=== PATIENT | female | born 1935 | race Caucasian/White ===

== ENCOUNTER 2019-05-06 19:07 | Observation (INO) ==
[2019-05-06 19:58] LABS: Basophils # 0.1 K/mm3 (0-0.2); Basophils % 0.6 % (0.1-2.0); Eosinophils % 0.1 % (0.1-12.0); Hematocrit 45.9 % (37.0-47.0); Hemoglobin 15.4 g/dL (12.2-16.2); Lymphocytes # 3.9 K/mm3 (0.7-4.5); Lymphocytes % 28.6 % (10-50); Mean Corpuscular HGB Conc 33.6 g/dL (31.8-35.4); Mean Platelet Volume 8.6 fl (7.4-10.4); Monocytes # 0.7 K/mm3 (0.1-1.0); Monocytes % 5.4 % (1.7-9.3); Neutrophils # 8.8 K/mm3 (1.8-7.8); Neutrophils % 65.3 % (37.0-80.0); Platelet Count 226 K/mm3 (142-424); Red Blood Count 5.21 M/mm3 (4.20-5.40); Red Cell Distribution Width 14.2 % (11.5-17.5); White Blood Count 13.5 K/mm3 (4.8-10.8)
[2019-05-06 20:12] LABS: Amylase 48 U/L (25-115)
--- NOTE | 2019-05-06 20:13 | Emergency Department Note ---
ED Disposition Clinical Impression: SIRS (systemic inflammatory response syndrome) CAP (community acquired pneumonia) Qualifiers: Laterality: right Lung location: upper lobe of lung Qualified Code(s): J18.9 - Pneumonia, unspecified organism UTI (urinary tract infection) Qualifiers: Urinary tract infection type: site unspecified Hematuria presence: without hematuria Qualified Code(s): N39.0 - Urinary tract infection, site not specified Obesity Qualifiers: Obesity type: due to excess calories Obesity classification: adult class 3 (BMI >= 40) Serious obesity comorbidity presence: with serious comorbidity Body mass index: BMI 40.0-44.9 Qualified Code(s): E66.01 - Morbid (severe) obesity due to excess calories; Z68.41 - Body mass index (BMI) 40.0-44.9, adult Disposition: Admitted as Observation Condition on Discharge: Good - Critical Care Critical Care Time: No Attestation: On 05/06/19, the high probability of a clinically significant, sudden or life threatening deterioration of the following system(s) required my full and direct attention, intervention and personal management. The time I documented below is in addition to time spent performing reported procedures but includes the following listed in this critical care notation. Medical Decision Making - Medical Records Medical records reviewed: Yes: I reviewed the patient's medical records. - Edgardo Inquiry Pt receiving controlled substance: No Vital Signs: 05/06/19 19:29 05/06/19 20:18 05/06/19 20:47 Temperature 99.6 F Temperature Source Oral Pulse Rate 75 Pulse Rate [Right Brachial] 85 81 Respiratory Rate 24 22 Blood Pressure [Right Arm] 170/87 H 169/76 H Blood Pressure Mean [Right Arm] 114 107 Blood Pressure Source [Right Arm] Automatic Cuff Automatic Cuff Blood Pressure Position [Right Arm] Sitting Sitting 02 Sat by Pulse Oximetry 93 L 93 L 93 L Oxygen Delivery Method Room Air Room Air Room Air Oxygen Flow Rate (LPM) 05/06/19 20:50 05/06/19 21:16 05/06/19 22:29 Temperature 102.7 F H Temperature Source Rectal Pulse Rate Pulse Rate [Right Brachial] 63 71 Respiratory Rate 24 22 Blood Pressure [Right Arm] 187/88 H 128/68 Blood Pressure Mean [Right Arm] 121 88 Blood Pressure Source [Right Arm] Automatic Cuff Automatic Cuff Blood Pressure Position [Right Arm] Supine Supine 02 Sat by Pulse Oximetry 93 L 92 L Oxygen Delivery Method Nasal Cannula Nasal Cannula Oxygen Flow Rate (LPM) 3 3 - Lab Data Lab results reviewed: Yes: I reviewed the patient's lab results. Lab Results 05/06/19 19:30: WBC 13.5 H, RBC 5.21, Hgb 15.4, Hct 45.9, MCV 88.0, MCH 29.6, MCHC 33.6, RDW 14.2, Plt Count 226, MPV 8.6, Neut % (Auto) 65.3, Lymph % (Auto) 28.6, [place] % (Auto) 5.4, Eos % (Auto) 0.1, Baso % (Auto) 0.6, Neut # (Auto) 8.8 H, Lymph # (Auto) 3.9, [place] # (Auto) 0.7, Eos # (Auto) 0.0, Baso # (Auto) 0.1 05/06/19 19:30: Influenza Type A Ag Negative, Influenza Type B Ag Negative 05/06/19 19:30: Lactate 1.4 05/06/19 19:30: ESR 16 05/06/19 19:30: C-Reactive Protein 15.3 H 05/06/19 19:30: Amylase 48, Lipase 210 05/06/19 20:15: Sodium 135 L, Potassium 3.6, Chloride 97 L, Carbon Dioxide 25, Anion Gap 16.6 H, BUN 14, Creatinine 0.91, Estimated Creat Clear 19, Estimated GFR 59, Est GFR ( Amer) 71, Glucose 123 H, Calcium 9.3, Total Bilirubin 0.8, AST 14 L, ALT 12, Alkaline Phosphatase 102, Total Protein 7.1, Albumin 3.5, Globulin 3.6 H, Albumin/Globulin Ratio 1.0 L 05/06/19 20:15: Troponin I < 0.02 05/06/19 20:38: Urine Color Yellow, Urine Appearance Clear, Urine pH 5.5, Ur Specific [place] 1.025, Urine Protein 2+, Urine Glucose (UA) Negative, Urine Ketones Trace, Urine Blood 1+, Urine Nitrate Negative, Urine Bilirubin Negative, Urine Urobilinogen 2.0, Ur Leukocyte Esterase 2+ A, Urine WBC 10-20, Ur Squamous Epith Cells 3-5, Urine Bacteria Trace Result diagrams: 05/06/19 19:30 05/06/19 20:15 Orders (Tests/Meds): ED MEDICATIONS Generic Name Dose Route Start Last Admin Trade Name Freq PRN Reason Stop Dose Admin Sodium Chloride 1,000 mls @ 999 mls/hr 05/06/19 19:45 05/06/19 19:57 Sod Chlor 0.9% 1000ml Bag IV 05/06/19 20:45 999 mls/hr .Q1H1M PASQUALE Administration Ceftriaxone Sodium 1 gm/ 50 mls @ 100 mls/hr 05/06/19 21:15 05/06/19 21:14 Sodium Chloride IV 05/20/19 21:14 100 mls/hr Q24H PASQUALE Administration Protocol Azithromycin 500 mg/ Sodium 250 mls @ 250 mls/hr 05/06/19 21:30 05/06/19 21:27 Chloride IV 05/20/19 21:29 250 mls/hr Q24H PASQUALE Administration Protocol Sodium Chloride 1,000 mls @ 50 mls/hr 05/06/19 21:30 05/06/19 21:30 Sod Chlor 0.9% 1000ml Bag IV 06/05/19 21:29 50 mls/hr .Q20H PASQUALE Administration Discontinued Medications Generic Name Dose Route Start Last Admin Trade Name Pattie PRN Reason Stop Dose Admin Acetaminophen 1,000 mg 05/06/19 20:55 05/06/19 20:58 Tylenol 500mg Tablet PO 05/06/19 20:56 1,000 mg ONCE ONE Administration Albuterol Sulfate 1.25 mg 05/06/19 19:52 05/06/19 20:15 Albuterol 0.042% 1.25mg/3ml Neb IH 05/06/19 19:53 1.25 mg ONCE ONE Administration Methylprednisolone Sodium Succinate 125 mg 05/06/19 19:52 05/06/19 19:57 Solu-Medrol 125mg/2ml Vial IV 05/06/19 19:53 125 mg ONCE ONE Administration Ondansetron HCl 4 mg 05/06/19 20:09 05/06/19 20:26 Zofran 4mg/2ml Vial IV 05/06/19 20:10 4 mg ONCE ONE Administration ORDERS Category Date Time Status CT abdomen pelvis w con Stat Cat Scan 05/06/19 20:08 Taken XR chest 2V Stat Exams 05/06/19 19:38 Taken Diarrhea 23 Panel, PCR Stat Lab 05/06/19 20:05 Ordered Troponin I Q3H Lab 05/06/19 23:15 Ordered Troponin I Q3H Lab 05/07/19 02:15 Ordered Blood Culture Stat Micro 05/06/19 19:30 Received Urine Culture Stat Micro 05/06/19 20:38 Received - Radiology Data #1 Image(s): Chest Image Reviewed: Yes I reviewed the patient's radiology image Preliminary Findings: Abnormal (changes rt ) - CT Data CT Scan: Abdomen, Pelvis Time Received: 22:[address] Reviewed: Yes: I have viewed the radiologist's interpretation Preliminary Findings: Abnormal (see report ) - ECG Data Tracing #1 Normal Sinus Rhythm: Yes Ischemic changes: non-specific ST-T wave changes - Physician Consults Physician Consulted: ruby Reason -: Admission Nausea/Vomiting/Diarrhea HPI - General Chief complaint: Nausea/Vomiting/Diarrhea Stated complaint: V&D,Fever,Stomach Pain,Weakness,SOB Time Seen by Provider: 05/06/19 20:00 Mode of Arrival: Ambulatory Source of Information: Patient, Medical Record Limitations: No Limitations Description of Symptoms (Recalled from ER Triage Doc. by RN): Pt c/o cough, body ache, n/v/diarrhea x3 days. She denies any other symptoms at this time. 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 - - pt is poor historian - MD complaint: nausea, vomiting Onset (ago): day(s) Associated Abdominal Pain: No Associated symptoms: cough - Related Data Home Medications Medication Instructions Recorded Confirmed Amlodipine Besylate 1 tab PO DAILY 05/06/19 05/06/19 Aspirin [Adult Low Dose Aspirin EC] 81 mg PO DAILY 05/06/19 05/06/19 Clopidogrel Bisulfate [Plavix 75mg 1 tab PO DAILY 05/06/19 05/06/19 Tab] Donepezil HCl [Aricept 5mg 1 tab PO HS 05/06/19 05/06/19 Tablet] Furosemide [Furosemide 20mg Tab] 1 tab PO DAILY 05/06/19 05/06/19 Gabapentin [Gabapentin 100mg Cap] 1 tab PO TID 05/06/19 05/06/19 Loratadine [Claritin 10mg Tablet] 1 tab PO DAILY 05/06/19 05/06/19 Magnesium Oxide 400 mg PO DAILY 05/06/19 05/06/19 Metoprolol Tartrate [Lopressor 1 tab PO BID 05/06/19 05/06/19 25mg tablet] Montelukast Sodium [Montelukast 10 mg PO HS 05/06/19 05/06/19 10mg Tab] Potassium Chloride 20 meq PO DAILY 05/06/19 05/06/19 Pravastatin Sodium [Pravachol] 40 mg PO HS 05/06/19 05/06/19 Sertraline HCl [Zoloft 50mg tablet] 1 tab PO DAILY 05/06/19 05/06/19 raNITIdine HCl [Ranitidine HCl] 150 mg PO BID 05/06/19 05/06/19 Allergies Allergy/AdvReac Type Severity Reaction Status Date / Time No Known Allergies Allergy Verified 08/31/17 16:57 [facility] History - Hepatitis A Screen Drug use history?: No High risk sexual behaviors?: No History of sexually transmitted infection?: No Currently employed?: No Childcare worker?: No Do you have indoor plumbing?: Yes Do you have electricity?: Yes Attestation statement:: This patient has been screened for Hepatitis A risk factors. I have reviewed the patient's past medical history: Yes Medical History: Denies:: Diabetes Mellitus Type 1, Diabetes Mellitus Type 2 - Social History Alcohol Intake: never Occupational Status: disabled Housing: house ROS Obtained: Yes All systems reviewed & no additional complaints - Constitutional Constitutional: Reports as per HPI, Reports fever(s), Reports weakness - Eyes Eyes: Denies change in vision - ENT Ears, Nose, Mouth, and Throat: Denies sore throat - Cardiovascular Cardiovascular: Denies chest pain - Respiratory Respiratory: Yes as per HPI, Yes cough, Yes non-productive cough, No coughing up blood - Gastrointestinal Gastrointestingal: Reports: as per HPI, nausea, vomiting. Denies: abdominal pain, diarrhea - Genitourinary Female Genitourinary: Denies hematuria - Musculoskeletal Musculoskeletal: Denies joint swelling - Integumentary/Breasts Skin/Breast: Denies rash - Neurologic Neurologic: Denies focal weakness, Denies frequent falls, Denies seizure-like activity Physical Exam - General General appearance: alert, obese - Head Head exam: normocephalic - Eye Eye exam: Present: PERRL, EOMI. Absent: scleral icterus - ENT ENT exam: Present: mucous membranes dry - Neck Neck exam: Present: trachea midline - Respiratory Respiratory exam: Present: other (dec bs bilat ). Absent: respiratory distress - Cardiovascular Cardiovascular exam: Present: regular rate, systolic murmur, +S4 - Abdominal Exam Abdominal exam: Present: soft, tenderness. Absent: guarding, rebound, rigidity Abdominal tenderness: Present: diffuse, mild - Extremities Exam Extremities exam: Present: full ROM - Neurological Exam Neurological exam: Present: alert, CN II-XII intact - Skin Skin exam: Present: intact
[2019-05-06 20:42] LABS: Albumin Level 3.5 gm/dL (3.4-5.0); Anion Gap 16.6 mEq/L (5-15); Bilirubin,Total 0.8 mg/dL (0.2-1.0); Calcium 9.3 mg/dL (8.5-10.1); Globulin 3.6 gm/dl (1.3-3.2); Total Protein,Serum 7.1 gm/dL (6.4-8.2)
[2019-05-06 20:42] LABS: Microscopic, Urine URINE MICROSCOPIC (MICROSCOPIC)
[2019-05-06 20:53] LABS: Appearance,Urine CLEAR (Clear); Blood, Urine 1+ (Negative); Color,Urine YELLOW (Yellow); Glucose,Urine (UA) Negative (Negative); Ketones,Urine TRACE (Negative); Leukocyte Esterase,Urine 2+ (Negative); PH,Urine 5.5 (5.0-8.5); Protein,Urine 2+ (Negative); Specific Gravity, Urine 1.025 (1.005-1.030)
[2019-05-06 21:08] LABS: Bilirubin,Urine Negative (Negative)
[2019-05-06 21:10] LABS: Bacteria,Urine Trace /lpf
[2019-05-07 07:20] LABS: Hematocrit 43.4 % (37.0-47.0); Hemoglobin 13.9 g/dL (12.2-16.2); Mean Corpuscular Volume 89.3 fl (81-99); Mean Platelet Volume 8.5 fl (7.4-10.4); Neutrophils % 70.3 % (37.0-80.0); Platelet Count 177 K/mm3 (142-424); Red Blood Count 4.86 M/mm3 (4.20-5.40); Red Cell Distribution Width 15.1 % (11.5-17.5); White Blood Count 7.8 K/mm3 (4.8-10.8)
[2019-05-07 07:21] LABS: Basophils % 0.5 % (0.1-2.0); Lymphocytes % 25.4 % (10-50); Monocytes # 0.3 K/mm3 (0.1-1.0); Monocytes % 3.7 % (1.7-9.3); Neutrophils # 5.5 K/mm3 (1.8-7.8)
--- NOTE | 2019-05-07 08:59 | History & Physical Report ---
*Admission Date: 05/06/19 *Chief complaint: Fever/lethargy/cough *History of present illness: 83-year-old white female, with significant debility, senile dementia and functional status decline who lives in [place] with relatives after the of her a couple of years ago, who came to the emergency department because she was "sick for a couple of days." She reports nausea, diminished p.o. intake, cough productive of yellow sputum and diminishing urine output. In the emergency department she was found to meet sepsis criteria, have evidence of pneumonia on chest x-ray, and was admitted to hospital for IV fluid, further evaluation, supportive care and intravenous antibiotics. This morning she states she is feeling better than yesterday. [facility] History I have reviewed the patient's past medical history: Yes Medical History: Reports:: Coronary Artery Disease, Dementia, Hyperlipidemia, Hypertension Denies:: Diabetes Mellitus Type 1, Diabetes Mellitus Type 2 *Have you ever received a pneumonia vaccine?: Yes *Have you received a flu vaccine this season?: Yes Other Surgeries: Yes: Other - *Social History Educational Level: Attended Grade School Alcohol Intake: never *Occupational Status:: disabled Housing: house *Travel in the last 8 weeks: None Family Hx:: Cancer, Heart Attack, Stroke Review of Systems - Review of Systems Review of systems:: pertinent systems reviewed and negative unless documented below - Constitutional Reports anorexia, Reports fatigue, Reports fever(s) - ENT Denies abnormal hearing, Denies poor balance, Denies dizziness - *Cardiovascular Denies chest pain, Denies shortness of breath, Denies lightheadedness, Denies shortness of breath causing sudden awakening - *Respiratory Reports change in phlegm color, Reports chest congestion, Reports cough - *Gastrointestinal Reports abdominal pain, Reports change in bowel habits - *Musculoskeletal Reports muscle weakness, Denies abnormal walking - *Neurologic Reports weakness, Denies localized weakness, Denies frequent falls, Denies seizure-like activity - Endocrine Denies cold intolerance, Denies rapid, pounding, or irregular heartbeat, Denies increased urination - Hematologic/Lymphatic Denies easy bleeding - Allergic/Immunologic Denies GI upset with certain foods Meds Home Medications Medication Instructions Recorded Confirmed Type Amlodipine Besylate 1 tab PO DAILY 05/06/19 05/07/19 History Aspirin [Adult Low Dose Aspirin EC] 81 mg PO DAILY 05/06/19 05/07/19 History Clopidogrel Bisulfate [Plavix 75mg 1 tab PO DAILY 05/06/19 05/07/19 History Tab] Donepezil HCl [Aricept 5mg 1 tab PO HS 05/06/19 05/07/19 History Tablet] Furosemide [Furosemide 20mg Tab] 1 tab PO DAILY 05/06/19 05/07/19 History Gabapentin [Gabapentin 100mg Cap] 1 tab PO TID 05/06/19 05/07/19 History Loratadine [Claritin 10mg Tablet] 1 tab PO DAILY 05/06/19 05/07/19 History Magnesium Oxide 400 mg PO DAILY 05/06/19 05/07/19 History Metoprolol Tartrate [Lopressor 1 tab PO BID 05/06/19 05/07/19 History 25mg tablet] Montelukast Sodium [Montelukast 10 mg PO HS 05/06/19 05/07/19 History 10mg Tab] Potassium Chloride 20 meq PO DAILY 05/06/19 05/07/19 History Pravastatin Sodium [Pravachol] 40 mg PO HS 05/06/19 05/07/19 History Sertraline HCl [Zoloft 50mg tablet] 1 tab PO DAILY 05/06/19 05/07/19 History raNITIdine HCl [Ranitidine HCl] 150 mg PO BID 05/06/19 05/07/19 History Allergies Allergy/AdvReac Type Severity Reaction Status Date / Time No Known Allergies Allergy Verified 08/31/17 16:57 Exam Vital signs and Labs for Last 24 Hours: Temp Pulse Resp BP Pulse Ox 98.1 F 55 L 18 127/51 L 96 05/07/19 08:00 05/07/19 08:00 05/07/19 08:00 05/07/19 08:00 05/07/19 08:00 Laboratory Results - last 24 hr 05/06/19 19:30: WBC 13.5 H, RBC 5.21, Hgb 15.4, Hct 45.9, MCV 88.0, MCH 29.6, MCHC 33.6, RDW 14.2, Plt Count 226, MPV 8.6, Neut % (Auto) 65.3, Lymph % (Auto) 28.6, [place]are % (Auto) 5.4, Eos % (Auto) 0.1, Baso % (Auto) 0.6, Neut # (Auto) 8.8 H, Lymph # (Auto) 3.9, Dare # (Auto) 0.7, Eos # (Auto) 0.0, Baso # (Auto) 0.1 05/06/19 19:30: Influenza Type A Ag Negative, Influenza Type B Ag Negative 05/06/19 19:30: Lactate 1.4 05/06/19 19:30: ESR 16 05/06/19 19:30: C-Reactive Protein 15.3 H 05/06/19 19:30: Amylase 48, Lipase 210 05/06/19 20:15: Sodium 135 L, Potassium 3.6, Chloride 97 L, Carbon Dioxide 25, Anion Gap 16.6 H, BUN 14, Creatinine 0.91, Estimated Creat Clear 19, Estimated GFR 59, Est GFR ( Amer) 71, Glucose 123 H, Calcium 9.3, Total Bilirubin 0.8, AST 14 L, ALT 12, Alkaline Phosphatase 102, Total Protein 7.1, Albumin 3.5, Globulin 3.6 H, Albumin/Globulin Ratio 1.0 L 05/06/19 20:15: Troponin I < 0.02 05/06/19 20:38: Urine Color Yellow, Urine Appearance Clear, Urine pH 5.5, Ur Specific [place] 1.025, Urine Protein 2+, Urine Glucose (UA) Negative, Urine Ketones Trace, Urine Blood 1+, Urine Nitrate Negative, Urine Bilirubin Negative, Urine Urobilinogen 2.0, Ur Leukocyte Esterase 2+ A, Urine WBC 10-20, Ur Squamous Epith Cells 3-5, Urine Bacteria Trace 05/07/19 06:05: WBC 7.8 D, RBC 4.86, Hgb 13.9, Hct 43.4, MCV 89.3, MCH 28.6, MCHC 32.0, RDW 15.1, Plt Count 177, MPV 8.5, Neut % (Auto) 70.3, Lymph % (Auto) 25.4, [place]are % (Auto) 3.7, Eos % (Auto) 0.0 L, Baso % (Auto) 0.5, Neut # (Auto) 5.5, Lymph # (Auto) 2.0, Dare # (Auto) 0.3, Eos # (Auto) 0.0, Baso # (Auto) 0.0 I & O for Last 24 hours: Intake & Output 05/04/19 05/05/19 05/06/19 05/07/19 11:59 11:59 11:59 11:59 Intake Total 397 / 397 Output Total 600 / 600 Balance -203 / -203 Weight 178 lb 1 oz Narrative: Patient is pleasant, talkative, oriented x2. Does remember me from seeing me several years ago. Fuzzy about the date today. Oropharynx dry but clear, no JVD. Otherwise ENT exam clear. Neurologic exam nonfocal with symmetric facial exam, able to move all extremities well but global weakness noted. Anterior lung [place] have rhonchi in the lower bases especially in the left side. Heart rate regular. Soft flow murmur. Abdomen soft, minimal lower quadrant tenderness but no rebound or guarding. Age-related skin changes of bruising and brawny changes in the extremities but no significant edema. No skin breakdown. Assessment and Plan (1) CAP (community acquired pneumonia) Current visit: Yes Status: Acute Qualifiers: Laterality: right Lung location: upper lobe of lung Qualified Code(s): J18.9 - Pneumonia, unspecified organism Category: Medical Code(s): J18.9 - Pneumonia, unspecified organism Agree with admission. Follow blood and sputum cultures if possible. (2) Obesity Current visit: Yes Status: Acute Qualifiers: Obesity type: due to excess calories Obesity classification: adult class 3 (BMI >= 40) Serious obesity comorbidity presence: with serious comorbidity Body mass index: BMI 40.0-44.9 Qualified Code(s): E66.01 - Morbid (severe) obesity due to excess calories; Z68.41 - Body mass index (BMI) 40.0-44.9, adult Category: Medical Code(s): E66.9 - Obesity, unspecified Complicates all aspects of her care (3) SIRS (systemic inflammatory response syndrome) Current visit: Yes Status: Acute Category: Medical Code(s): R65.10 - Systemic inflammatory response syndrome (SIRS) of non-infectious origin without acute organ dysfunction Lactic acid normal. White count improving. Volume status improving. (4) UTI (urinary tract infection) Current visit: Yes Status: Acute Qualifiers: Urinary tract infection type: site unspecified Hematuria presence: without hematuria Qualified Code(s): N39.0 - Urinary tract infection, site not specified Category: Medical Code(s): N39.0 - Urinary tract infection, site not specified Antibiotics on board, await culture results (5) Senile dementia Current visit: Yes Status: Acute Category: Medical Code(s): F03.90 - Unspecified dementia without behavioral disturbance Complicates her care. Continue current medications (6) Coronary atherosclerosis of [place] coronary vessel Current visit: Yes Status: Chronic Category: Medical Code(s): I25.10 - Atherosclerotic heart disease of [place] coronary artery without angina pectoris No evidence of recurrent disease. Remains on antiplatelet therapy. Remains on statin. (7) Weakness Current visit: Yes Status: Acute Category: Medical Code(s): R53.1 - Weakness Significant comorbidities, PT/OT evaluation when available to assess for home safety
--- NOTE | 2019-05-07 11:31 | Pharmacy Consult Notes ---
[facility] Pharmacy VTE Monitoring - Patient Demographics Admission date: 05/07/19 Report Date: 05/07/19 Time: 11:31 Allergies/Adverse Reactions: Patient Allergies No Known Allergies Allergy (Verified 08/31/17 16:57) Height: 1.35 m Weight: 80.768 kg Patient Problems: Current Active Problems CAP (community acquired pneumonia) (Acute) UTI (urinary tract infection) (Acute) Obesity (Acute) SIRS (systemic inflammatory response syndrome) (Acute) Senile dementia (Acute) Coronary atherosclerosis of [place] coronary vessel (Chronic) Weakness (Acute) - VTE Risk Labs: VTE Related Lab Results Hgb 13.9 g/dL (12.2-16.2) 05/07/19 06:05 Hct 43.4 % (37.0-47.0) 05/07/19 06:05 Plt Count 177 K/mm3 (142-424) 05/07/19 06:05 BUN 14 mg/dL (7-18) 05/06/19 20:15 Creatinine 0.91 mg/dL (0.55-1.02) 05/06/19 20:15 Estimated Creat Clear 19 mL/min (50-200) 05/06/19 20:15 Was VTE Risk Assessment Performed: Yes VTE Score: 3 VTE Risk Level: Low Risk - Prophylaxis Types of VTE Prophylaxis: TEDS Knee High (FATOU HOSE ORDER PLACED)
[2019-05-07 12:43] LABS: Anion Gap 18.5 mEq/L (5-15); Calcium 9.3 mg/dL (8.5-10.1)
--- NOTE | 2019-05-07 16:21 | Electrocardiograph Report ---
APPROVED REPORT Exam: Resting ECG HR:76 bpm ECG Measurements Heart Rate 76 AXES NE 172 P 64 QRSd 82 QRS 28 QT 398 T28 QTc 447 <Conclusion> Normal sinus rhythm with sinus arrhythmia Normal ECG Electronically signed by : Huey Page, 05/07/2019 16:20:55
[2019-05-08 07:19] LABS: Basophils # 0.1 K/mm3 (0-0.2); Basophils % 0.5 % (0.1-2.0); Eosinophils # 0.1 K/mm3 (0.0-0.4); Eosinophils % 0.6 % (0.1-12.0); Hematocrit 40.8 % (37.0-47.0); Hemoglobin 13.2 g/dL (12.2-16.2); Lymphocytes # 5.5 K/mm3 (0.7-4.5); Mean Corpuscular HGB Conc 32.4 g/dL (31.8-35.4); Mean Corpuscular Volume 90.3 fl (81-99); Mean Platelet Volume 8.7 fl (7.4-10.4); Monocytes # 0.5 K/mm3 (0.1-1.0); Monocytes % 4.4 % (1.7-9.3); Neutrophils # 6.1 K/mm3 (1.8-7.8); Neutrophils % 49.6 % (37.0-80.0); Platelet Count 217 K/mm3 (142-424); Red Blood Count 4.52 M/mm3 (4.20-5.40); Red Cell Distribution Width 14.2 % (11.5-17.5); White Blood Count 12.3 K/mm3 (4.8-10.8)
[2019-05-08 07:40] LABS: Albumin Level 2.9 gm/dL (3.4-5.0); Albumin/Globulin Ratio 0.8 (1.1-1.8); Anion Gap 12.5 mEq/L (5-15); Bilirubin,Total 0.2 mg/dL (0.2-1.0); Calcium 9.3 mg/dL (8.5-10.1); Globulin 3.5 gm/dl (1.3-3.2); Total Protein,Serum 6.4 gm/dL (6.4-8.2)
--- NOTE | 2019-05-08 08:32 | Progress Note ---
Internal Medicine - PN: Subj *Date: 05/08/19 *Time: 08:31 Interval history: Overall patient feels better this morning. Had a very good PT evaluation yesterday. Exam Vital signs and Labs for Last 24 Hours: Temp Pulse Resp BP Pulse Ox 98.2 F 55 L 18 149/65 H 93 L 05/08/19 04:00 05/08/19 06:10 05/08/19 04:00 05/08/19 04:00 05/08/19 06:10 Laboratory Results - last 24 hr 05/07/19 06:05: Sodium 143, Potassium 3.5, Chloride 103, Carbon Dioxide 25, Anion Gap 18.5 H, BUN 16, Creatinine 0.74, Estimated Creat Clear 19, Estimated GFR 75, Est GFR ( Amer) 90 D, Glucose 161 H D, Calcium 9.3, Magnesium 2.1 05/08/19 06:32: WBC 12.3 H D, RBC 4.52, Hgb 13.2, Hct 40.8, MCV 90.3, MCH 29.2, MCHC 32.4, RDW 14.2, Plt Count 217, MPV 8.7, Neut % (Auto) 49.6, Lymph % (Auto) 45.0, [place] % (Auto) 4.4, Eos % (Auto) 0.6, Baso % (Auto) 0.5, Neut # (Auto) 6.1, Lymph # (Auto) 5.5 H, [place] # (Auto) 0.5, Eos # (Auto) 0.1, Baso # (Auto) 0.1 05/08/19 06:32: Sodium 143, Potassium 3.5, Chloride 103, Carbon Dioxide 31 D, Anion Gap 12.5, BUN 24 H D, Creatinine 0.76, Estimated Creat Clear 19, Estimated GFR 72, Est GFR ( Amer) 88, Glucose 97, Calcium 9.3, Total Bilirubin 0.2, AST 19 D, ALT 17 D, Alkaline Phosphatase 85, Total Protein 6.4, Albumin 2.9 L D, Globulin 3.5 H, Albumin/Globulin Ratio 0.8 L I & O for Last 24 hours: Intake & Output 05/05/19 05/06/19 05/07/19 05/08/19 11:59 11:59 11:59 11:59 Intake Total 517 / 517 1190 / 1190 Output Total 600 / 600 200 / 200 Balance -83 / -83 990 / 990 Weight 178 lb 1 oz 179 lb 7 oz Microbiology Reports for the Last 24 Hours: Microbiology 05/07/19 14:30 Sputum - Expectorated Sputum Gram Stain - Final 05/07/19 14:30 Sputum - Expectorated Sputum Sputum Culture - Preliminary 05/06/19 20:38 Urine,Clean Catch Urine Culture - Preliminary Narrative: Patient is eating breakfast vigorously. Alert, oriented x2. Lungs have good air movement, minimal rhonchi in the bases but improving. Heart rate regular. Abdomen soft and nontender. Extremities without edema or clubbing. Stronger, no focal neurologic deficits, no ENT abnormalities Assessment and Plan (1) CAP (community acquired pneumonia) Current visit: Yes Status: Acute Qualifiers: Laterality: right Lung location: upper lobe of lung Qualified Code(s): J18.9 - Pneumonia, unspecified organism Category: Medical Code(s): J18.9 - Pneumonia, unspecified organism (2) Obesity Current visit: Yes Status: Acute Qualifiers: Obesity type: due to excess calories Obesity classification: adult class 3 (BMI >= 40) Serious obesity comorbidity presence: with serious comorbidity Body mass index: BMI 40.0-44.9 Qualified Code(s): E66.01 - Morbid (severe) obesity due to excess calories; Z68.41 - Body mass index (BMI) 40.0-44.9, adult Category: Medical Code(s): E66.9 - Obesity, unspecified (3) SIRS (systemic inflammatory response syndrome) Current visit: Yes Status: Acute Category: Medical Code(s): R65.10 - Systemic inflammatory response syndrome (SIRS) of non-infectious origin without acute organ dysfunction (4) UTI (urinary tract infection) Current visit: Yes Status: Acute Qualifiers: Urinary tract infection type: site unspecified Hematuria presence: without hematuria Qualified Code(s): N39.0 - Urinary tract infection, site not specified Category: Medical Code(s): N39.0 - Urinary tract infection, site not specified (5) Senile dementia Current visit: Yes Status: Acute Category: Medical Code(s): F03.90 - Unspecified dementia without behavioral disturbance (6) Coronary atherosclerosis of [place] coronary vessel Current visit: Yes Status: Chronic Category: Medical Code(s): I25.10 - Atherosclerotic heart disease of [place] coronary artery without angina pectoris (7) Weakness Current visit: Yes Status: Acute Category: Medical Code(s): R53.1 - Weakness - Assessment and plan all Dx Assessment and Plan for all problems:: Overall improving. Await culture results. Probable discharge home tomorrow once culture results are back to assess appropriate antibiotics and we will need home health arranged for strengthening exercises.
--- NOTE | 2019-05-09 09:07 | Discharge Summary ---
General - General Admission date:: 05/06/19 Discharge date: 05/09/19 HPI HPI: 83-year-old white female, with significant debility, senile dementia and functional status decline who lives in [place] with relatives after the of her a couple of years ago, who came to the emergency department because she was "sick for a couple of days." She reports nausea, diminished p.o. intake, cough productive of yellow sputum and diminishing urine output. In the emergency department she was found to meet sepsis criteria, have evidence of pneumonia on chest x-ray, and was admitted to hospital for IV fluid, further evaluation, supportive care and intravenous antibiotics. This morning she states she is feeling better than yesterday. Hospital Course Hospital Course: Patient was admitted, placed on standard community-acquired pneumonia protocol with ceftriaxone and azithromycin. She did very well over the next 24 hours, had no fever, felt much better and began to eat vigorously. Blood cultures have been nondiagnostic. Sputum cultures have shown gram- positive cocci but final identification is not available at the time of this dictation. This morning patient has reached maximal medical provement in the hospital. Eating well, doing her own activities of daily living in the room and she will be discharged home with oral antibiotic therapy. Will arrange short-term follow-up in our office for a hospital recheck. Note patient achieved acceptable room air saturations of 93 to 94% on room air this morning. Patient lives with daughter and son-in-law. She does not have home health services once weekly for nursing checks. Given her increasing frailty and weakness I have asked home health to also check for her eligibility for PT/OT/home safety evaluation and ongoing monitoring for oxygen status. Patient does not leave the house with out a significant amount of difficulty secondary to pain and immobility issues. Please note I examined the patient [id number] today. Objective Vital signs: Temp Pulse Resp BP Pulse Ox 98.3 F 68 20 154/90 H 94 L 05/09/19 08:00 05/09/19 08:00 05/09/19 08:00 05/09/19 08:00 05/09/19 08:37 Narrative: Patient is pleasant, talkative, eating breakfast well. Oropharynx clear and moist. Heart rate regular. No JVD. Lungs have good air movement, minimal base rhonchi but otherwise much clearer. No edema or clubbing. Abdomen soft and nontender. Neurologic exam nonfocal except for global weakness. Results Labs on day of discharge: Preliminary micro results at discharge 05/06/19 19:30 Blood Culture - Preliminary Blood NO GROWTH AFTER 48 HOURS 05/06/19 19:30 Blood Culture - Preliminary Blood NO GROWTH AFTER 48 HOURS 05/07/19 14:30 Sputum Culture - Preliminary Sputum - Expectorated Sputum 05/06/19 20:38 Urine Culture - Preliminary Urine,Clean Catch DS: Diagnosis - Discharge Diagnosis (1) CAP (community acquired pneumonia) Status: Acute (2) Obesity Status: Acute (3) SIRS (systemic inflammatory response syndrome) Status: Acute (4) UTI (urinary tract infection) Status: Acute (5) Senile dementia Status: Acute (6) Coronary atherosclerosis of [place] coronary vessel Status: Chronic (7) Weakness Status: Acute Discharge Plan - Patient Discharge Instructions ACTIVITY: Continue current activity DIET: continue same diet Patient Instructions: Pneumonia-Adult, DI for Pneumonia -- Adult - Follow up Plan Follow up with: Reshma Roldan APRN [Nurse Practitioner] - 05/12/19 Disposition: Home, Self-Detention Medications: Home Medications Medication Instructions Recorded Confirmed Type Amlodipine Besylate 10 mg PO DAILY 05/06/19 05/07/19 History Aspirin [Adult Low Dose Aspirin EC] 81 mg PO DAILY 05/06/19 05/07/19 History Clopidogrel Bisulfate [Plavix 75mg 75 mg PO DAILY 05/06/19 05/07/19 History Tab] Donepezil HCl [Aricept 5mg 5 tab PO HS 05/06/19 05/07/19 History Tablet] Furosemide [Furosemide 20mg Tab] 20 tab PO DAILY 05/06/19 05/07/19 History Gabapentin [Gabapentin 100mg Cap] 100 tab PO TID 05/06/19 05/07/19 History Loratadine [Claritin 10mg Tablet] 10 tab PO DAILY 05/06/19 05/07/19 History Magnesium Oxide 400 mg PO DAILY 05/06/19 05/07/19 History Metoprolol Tartrate [Lopressor 25 tab PO BID 05/06/19 05/07/19 History 25mg tablet] Montelukast Sodium [Montelukast 10 mg PO HS 05/06/19 05/07/19 History 10mg Tab] Potassium Chloride 20 meq PO DAILY 05/06/19 05/07/19 History Pravastatin Sodium [Pravachol] 40 mg PO HS 05/06/19 05/07/19 History Sertraline HCl [Zoloft 50mg tablet] 50 tab PO DAILY 05/06/19 05/07/19 History raNITIdine HCl [Ranitidine HCl] 150 mg PO BID 05/06/19 05/07/19 History Azithromycin [Zithromax 250mg 250 mg PO DIRECTED #6 tab 05/09/19 Rx tab] Cefdinir [Omnicef 300mg Capsule] 300 mg PO BID #14 cap 05/09/19 Rx Promethazine/Dextromethorphan 5 ml PO Q6HP PRN #240 ml 05/09/19 Rx [Promethazine-Dm Syrup] Prescriptions/Medication Reconciliation: New Cefdinir [Omnicef 300mg Capsule] 300 mg PO BID #14 cap Promethazine/Dextromethorphan [Promethazine-Dm Syrup] 5 ml PO Q6HP PRN #240 ml PRN Reason: Cough Azithromycin [Zithromax 250mg tab] 250 mg PO DIRECTED #6 tab Continued Clopidogrel Bisulfate [Plavix 75mg Tab] 75 mg PO DAILY raNITIdine HCl [Ranitidine HCl] 150 mg PO BID Montelukast Sodium [Montelukast 10mg Tab] 10 mg PO HS Aspirin [Adult Low Dose Aspirin EC] 81 mg PO DAILY Pravastatin Sodium [Pravachol] 40 mg PO HS Potassium Chloride 20 meq PO DAILY Furosemide [Furosemide 20mg Tab] 20 tab PO DAILY Metoprolol Tartrate [Lopressor 25mg tablet] 25 tab PO BID Loratadine [Claritin 10mg Tablet] 10 tab PO DAILY Gabapentin [Gabapentin 100mg Cap] 100 tab PO TID Magnesium Oxide 400 mg PO DAILY Donepezil HCl [Aricept 5mg Tablet] 5 tab PO HS Sertraline HCl [Zoloft 50mg tablet] 50 tab PO DAILY Amlodipine Besylate 10 mg PO DAILY - Problem Reconciliation Problems Reviewed?: Yes
== END 2019-05-09 13:08 | disposition home health service (06) ==
LOC: 2ND 19:07 → ER 19:07 → 2ND 23:42
PROVIDERS: ADMIT Internal Medicine Adolescent Medicine; ATTEND Internal Medicine Adolescent Medicine
CPT/HCPCS: 36415; 71020; 71046; 74177; 80048; 80053; 81001; 82150; 83605; 83690; 83735; 84484; 85025; 85651; 86140; 87040; 87070; 87086; 87205; 87275; 87276; 93005; 96365; 96366; 96375; 97161; 97166; 99285; G0378; J0456; J2405; Q9967

== ENCOUNTER 2023-07-16 08:46 | Inpatient (IN) | payer MEDICARE, OTHER, SELFPAY ==
[2023-07-16] VITALS (28 sets, daily range): BP systolic 133–172; BP diastolic 59–112; PULSE 45–76; RESP 15–26; TEMP 36.3–37.1; O2SAT 77–96; BMI 28.3; BMI 29.2
--- NOTE | 2023-07-16 08:47 | XR_ITS ---
FINAL REPORT CLINICAL HISTORY: SOA, hypoxia COMPARISON: 02/05/2023 FINDINGS: A single portable view of the chest was obtained. The heart size and pulmonary vascularity are within normal limits. The mediastinum is within normal limits. There are dense right upper lobe and bilateral lower lobe airspace infiltrates, worse than noted on the prior exam of January. The bony thorax is intact. IMPRESSION: Dense right upper lobe and bilateral lower lobe airspace infiltrates, worse than noted on the prior exam of January 2023. Reviewed, Interpreted and Dictated by Holland Patel MD Transcribed by Aleyda Kaur Authenticated and [facility]
--- NOTE | 2023-07-16 08:49 | ECG_ITS ---
APPROVED REPORT Exam: Resting ECG HR:66 bpm ECG Measurements Heart Rate 66 AXES WA 197 P 64 QRSd 96 QRS 89 QT 422 T 107 QTc 435 Conclusion SINUS RHYTHM WITH OCCASIONAL SUPRAVENTRICULAR PREMATURE COMPLEXES BORDERLINE ECG UNCONFIRMED REPORT Electronically signed by : Moiz Brito MD 07/16/2023 16:33:32
--- NOTE | 2023-07-16 08:50 | ED_ITS ---
Discharge Plan Disposition Patient Disposition: Admitted Condition: Fair Clinical Impressions Clinical Impression: Sepsis due to pneumonia, Acute on chronic hypoxic respiratory failure Discharge ED Provider: Linnette Kaur General Adult HPI General Chief complaint: Shortness of Breath/Dyspnea Stated complaint: soa Time Seen by Provider: 07/16/23 08:47 History of Present Illness HPI narrative: This patient is an 87-year-old female with history of chronic respiratory failure on 4 L nasal cannula, COPD, CHF, CAD, history of pneumonia, and history of dementia presenting to the emergency department for evaluation with concern for shortness of breath that started last night and became worse this morning. She also notes cough, subjective fevers, and nausea. She arrives by EMS who noted patient was satting in the 60s on her home 4 L nasal cannula once they arrived on scene, however the tubing was extremely long. She improved to the 80s on short tubing at her baseline 4 L nasal cannula, and she was noted to be wheezing. They gave her a nebulizer treatment, which improved her respiratory status slightly. Patient states she is feeling a little bit better. EMS notes that the patient chronically has lower extremity edema, left greater than right. No other concerns noted at this time. Related Data Home Medications Medication Instructions Recorded Confirmed amlodipine 10 mg tablet 10 mg PO DAILY High Blood Pressure 02/05/23 07/16/23 azithromycin 250 mg tablet 250 mg PO MOWEFR Bronchopneumonia 02/05/23 07/16/23 carvedilol 6.25 mg tablet 6.25 mg PO BID High Blood Pressure 02/05/23 07/16/23 clopidogrel 75 mg tablet 75 mg PO DAILY Antiplatelet 02/05/23 07/16/23 donepezil 5 mg tablet 5 mg PO HS Memory 02/05/23 07/16/23 ergocalciferol (vitamin D2) 1,250 1,250 mcg PO WEEKLY Supplement 02/05/23 07/16/23 mcg (50,000 unit) capsule (Vitamin D2) gabapentin 100 mg capsule 100 mg PO HS Restless Leg(S) 02/05/23 07/16/23 isosorbide mononitrate 30 mg 30 mg PO DAILY High Blood Pressure 02/05/23 07/16/23 tablet,extended release 24 hr loratadine 10 mg tablet 10 mg PO DAILY Allergy Symptoms 02/05/23 07/16/23 montelukast 10 mg tablet 10 mg PO PM Allergy Symptoms 02/05/23 07/16/23 pravastatin 40 mg tablet 40 mg PO HS High Cholesterol 02/05/23 07/16/23 sertraline 50 mg tablet 50 mg PO DAILY Mood 02/05/23 07/16/23 albuterol sulfate 90 mcg/actuation 2 inh inhalation Q4HP PRN 02/12/23 07/16/23 aerosol inhaler Shortness Of Breath ipratropium 0.5 mg-albuterol 3 mg 3 ml inhalation Q4HP PRN Breathing 02/12/23 07/16/23 (2.5 mg base)/3 mL nebulization Problems soln potassium chloride 20 mEq 20 meq PO DAILY 07/16/23 07/16/23 tablet,extended release(part/cryst) Previous Rx's Medication Instructions Recorded furosemide 20 mg tablet 40 mg PO DAILY Fluid 30 days #60 02/14/23 tabs Allergies Allergy/AdvReac Type Severity Reaction Status Date / Time No Known Allergies Allergy Verified 04/30/23 08:18 [facility] Disclaimer: The information contained in this section may have been updated after the patient was seen, as this information can be updated by other users. Medical History Chronic venous stasis Congestive heart failure COPD (chronic obstructive pulmonary disease) Coronary artery disease Diverticulosis Hearing deficit History of skin cancer HTN (hypertension) Onychodystrophy Onychomycosis Senile dementia Splenomegaly Varicose veins of both lower extremities Surgical History History of breast lump/mass excision History of hemorrhoidectomy Family History Father Mother Heart attack Mother Lung cancer Father Stroke Social History (Updated 07/16/23 @ 14:01 by Ivory Gimenez RN) Smoking Status: Former smoker alcohol intake: never current occupational status: retired and disabled Travel in the last 8 weeks: None household members: family housing: house ROS Obtained: Yes All systems reviewed & no additional complaints except as documented Physical Exam General General appearance: alert and in no apparent distress Head Head exam: atraumatic and normocephalic Eye Eye exam: Present normal appearance, PERRL and EOMI ENT ENT exam: Present normal exam, normal oropharynx, mucous membranes moist and normal external ear exam Neck Neck exam: Present normal inspection, full ROM and trachea midline; Absent tenderness Chest Chest inspection: Present normal inspection and symmetric chest wall rise; Absent tenderness Respiratory Respiratory exam: Present wheezes, prolonged expiratory phase and other (No notable respiratory distress, but the patient does have diminished breath sounds bilaterally as well as wheezing noted.); Absent respiratory distress, stridor or accessory muscle use Cardiovascular Cardiovascular exam: Present regular rate and normal rhythm Abdominal Exam Abdominal exam: Present soft; Absent distention, tenderness or guarding Extremities Exam Extremities exam: Present full ROM, tenderness, normal capillary refill, edema and other (Left greater than right lower extremity edema with mild erythema of the left lower leg) Back Exam Back exam: Present normal inspection and full ROM; Absent tenderness Neurological Exam Neurological exam: Present alert, oriented X3, CN II-XII intact and normal gait; Absent motor sensory deficit Psychiatric Psychiatric exam: Present normal affect and normal mood Skin Skin exam: Present warm and dry Medical Decision Making Medical Records Medical records reviewed: Yes I reviewed the patient's medical records. Edgardo Inquiry Pt receiving controlled substance: No Vital Signs: 07/16/23 08:47 07/16/23 08:53 07/16/23 09:08 Temperature 98.8 F Temperature Source Tympanic Pulse Rate Pulse Rate [Right] 68 Respiratory Rate 22 Blood Pressure Blood Pressure [Right Arm] 162/67 H Blood Pressure Mean [Right Arm] 98 Blood Pressure Source Blood Pressure Position 02 Sat by Pulse Oximetry 77 L 90 L 94 L Oxygen Delivery Method Nasal Cannula Non-Rebreather Aerosol Mask Oxygen Flow Rate (LPM) 4 15 15 07/16/23 09:01 07/16/23 09:30 07/16/23 10:01 Temperature Temperature Source Pulse Rate 63 57 L 45 L Pulse Rate [Right] Respiratory Rate Blood Pressure 155/78 H 161/82 H Blood Pressure [Right Arm] Blood Pressure Mean [Right Arm] Blood Pressure Source Blood Pressure Position 02 Sat by Pulse Oximetry 93 L 91 L 81 L Oxygen Delivery Method Oxygen Flow Rate (LPM) 07/16/23 10:20 07/16/23 10:31 07/16/23 11:01 Temperature Temperature Source Pulse Rate 67 68 Pulse Rate [Right] Respiratory Rate Blood Pressure 153/69 H 141/112 H Blood Pressure [Right Arm] Blood Pressure Mean [Right Arm] Blood Pressure Source Blood Pressure Position 02 Sat by Pulse Oximetry 92 L 92 L 90 L Oxygen Delivery Method Vapotherm Vapotherm Vapotherm Oxygen Flow Rate (LPM) 30 07/16/23 11:30 07/16/23 12:00 07/16/23 12:51 Temperature 98.8 F Temperature Source Temporal Artery Scan Pulse Rate 64 66 64 Pulse Rate [Right] Respiratory Rate 18 Blood Pressure 165/76 H 170/75 H 165/79 H Blood Pressure [Right Arm] Blood Pressure Mean [Right Arm] Blood Pressure Source Automatic Cuff Blood Pressure Position Supine 02 Sat by Pulse Oximetry 91 L 90 L Oxygen Delivery Method Vapotherm Vapotherm Vapotherm Oxygen Flow Rate (LPM) Lab Data Lab results reviewed: Yes I reviewed the patient's lab results. Lab Results 07/16/23 08:47: VBG pH 7.38, VBG pCO2 56.7 H, VBG pO2 33.4, VBG HCO3 32.9 H, VBG Total CO2 34.7 H, VBG O2 Saturation 63.1, VBG Base Excess 7.8 H 07/16/23 08:50: WBC 29.6 H*, RBC 4.33, Hgb 10.8 L, Hct 36.8 L, MCV 85.0, MCH 25.0 L, MCHC 29.5 L, RDW 16.2, Plt Count 187, MPV 7.7, Neut % (Auto) 18.1 L, Lymph % (Auto) 78.0 H, [place] % (Auto) 2.3, Eos % (Auto) 0.4, Baso % (Auto) 1.1, Neut # (Auto) 5.4, Lymph # (Auto) 23.1 H, [place] # (Auto) 0.7, Eos # (Auto) 0.1, Baso # (Auto) 0.3 H, Total Counted 100, Neutrophils % (Manual) 16 L, Band Neutrophils % 1.0, Lymphocytes % (Manual) 81 H, Monocytes % (Manual) 2, Platelet Estimate Normal, Poikilocytosis 1+, Anisocytosis 1+, Microcytosis 1+, Macrocytosis Client Account Representative, PT 11.4, INR 1.06, APTT 24.3, D-Dimer 1.10 H, Sodium 141, Potassium 3.2 L, Chloride 100, Carbon Dioxide 39 H, Anion Gap 5.2, BUN 16, Creatinine 0.60, Estimated Creat Clear 45, Estimated GFR 94, Est GFR ( Amer) 114, Glucose 108 H, Calcium 9.2, Total Bilirubin 0.6, AST 27, ALT 17, Alkaline Phosphatase 89, Troponin I < 0.01, NT-Pro-B Natriuret Pep 4680 H, Total Protein 6.0 L, Albumin 3.7, Globulin 2.3, Albumin/Globulin Ratio 1.6, Procalcitonin < 0.030, TSH 0.96, Thyroxine (T4) 8.2 07/16/23 08:53: SARS-CoV-2 (PCR) Not detected, Influenza A Untype (PCR) Not detected, Influenza Type B (PCR) Not detected 07/16/23 09:30: Lactate 0.6 L 07/16/23 12:18: Troponin I < 0.01 07/16/23 08:50 07/16/23 08:50 Orders (Tests/Meds): ED MEDICATIONS Generic Name Dose Route Start Last Admin Trade Name Mylesq PRN Reason Stop Dose Admin Albuterol/Ipratropium 3 ml 07/16/23 14:00 07/16/23 14:43 Ipratropium/Albuterol 3 Ml Neb IH 08/15/23 13:59 3 ml Q4RT [place] Administration Carvedilol 6.25 mg 07/16/23 12:45 07/16/23 14:22 Carvedilol 6.25mg Tablet PO 08/15/23 12:44 6.25 mg BID [place] Administration Donepezil HCl 5 mg 07/16/23 21:00 Donepezil 5mg Tab PO 08/15/23 20:59 HS [place] Furosemide 40 mg 07/17/23 08:00 Furosemide 40mg/4ml Vial IV 08/16/23 07:59 BIDL [place] Gabapentin 100 mg 07/16/23 21:00 Gabapentin 100mg Capsule PO 08/15/23 20:59 HS [place] Heparin Sodium (Porcine) 5,000 unit 07/16/23 21:00 Heparin Sodium 5,000 Unit/Ml Vial SQ 08/15/23 20:59 TID [place] Vancomycin HCl 1,000 mg/ 250 mls @ 125 mls/hr 07/16/23 09:45 07/16/23 10:54 Sodium Chloride IV 07/26/23 09:44 125 mls/hr 0800 [place] Administration Piperacillin Sod/Tazobactam 50 mls @ 100 mls/hr 07/16/23 17:00 Sod 3.375 gm/ Sodium Chloride IV 07/26/23 16:59 Q6H [place] Isosorbide Mononitrate 30 mg 07/16/23 12:45 07/16/23 14:22 Isosorbide [place] 30mg Tab.Er.24h PO 08/15/23 12:44 30 mg DAILY [place] Administration Montelukast Sodium 10 mg 07/16/23 18:00 Montelukast Sodium 10mg Tab PO 08/15/23 17:59 PM [place] Potassium Chloride 20 meq 07/16/23 13:00 07/16/23 14:22 Potassium Chloride 20meq Tab PO 08/15/23 12:59 20 meq TID [place] Administration Fluticasone/Salmeterol 1 puff 07/17/23 06:00 Fluticasone/Salmeterol 250/50mcg Diskus 08/16/23 05:59 BIDRT [facility] Sodium Chloride 3 ml 07/16/23 09:25 Sodium Chloride 3% 15ml [facility] 08/15/23 09:24 ONCE PRN INDUCE SPUTUM COLLECTION Discontinued Medications Generic Name Dose Route Start Last Admin Trade Name Freq PRN Reason Stop Dose Admin Albuterol/Ipratropium 9 ml 07/16/23 08:49 07/16/23 09:01 Ipratropium/Albuterol 3 Ml [facility] 07/16/23 08:50 9 ml ONCE ONE Administration Furosemide 40 mg 07/17/23 09:00 Furosemide 20mg Tablet PO 08/16/23 08:59 DAILY [place] Furosemide 80 mg 07/16/23 12:40 07/16/23 14:21 Furosemide 40mg/4ml Vial IV 07/16/23 12:41 80 mg ONCE ONE Administration Piperacillin Sod/Tazobactam 50 mls @ 100 mls/hr 07/16/23 09:27 07/16/23 10:16 Sod 3.375 gm/ Sodium Chloride IV 07/16/23 09:56 100 mls/hr ONCE ONE Administration Sodium Chloride 500 mls @ 999 mls/hr 07/16/23 09:27 07/16/23 10:17 Sod Chlor 0.9% 1000ml Bag IV 07/16/23 09:57 999 mls/hr .Q31M ONE Administration Iopamidol 70 ml 07/16/23 09:50 07/16/23 09:52 Iopamidol-370 (76%);100ml Bottle IV 07/16/23 09:51 70 ml ONCE ONE Administration Methylprednisolone Sodium Succinate 125 mg 07/16/23 08:49 07/16/23 09:02 Methylprednisolone Sod Succ 125mg Vial IV 07/16/23 08:50 125 mg ONCE ONE Administration Miscellaneous 1 each 07/16/23 09:30 07/16/23 10:29 Vancomycin Consult Request NOTAPPLIC 08/15/23 09:29 1 each CONSULT PHARMACY [place] Administration Sodium Chloride 40 ml 07/16/23 09:50 07/16/23 09:52 0.9 % Sodium Chloride 50 Ml Vial IV 07/16/23 09:51 40 ml ONCE ONE Administration Sodium Chloride 10 ml 07/16/23 09:50 07/16/23 09:52 Sodium Chloride 0.9% 10ml Syr (Rad Only) IV 07/16/23 09:51 10 ml ONCE ONE Administration ORDERS Category Date Time Status CT angio chest PE protocol Stat Cat Scan 07/16/23 09:30 Completed XR chest portable Stat Exams 07/16/23 08:47 Completed Activated Partial Thrombo Time Stat Lab 07/16/23 08:50 Completed Brain Natriuretic Peptide Stat Lab 07/16/23 08:50 Completed Complete Blood Count Auto Diff AMLAB Lab 07/17/23 06:00 Ordered Complete Blood Count Auto Diff Stat Lab 07/16/23 08:50 Completed Comprehensive Metabolic Panel AMLAB Lab 07/17/23 06:00 Ordered Comprehensive Metabolic Panel Stat Lab 07/16/23 08:50 Completed D-Dimer Stat Lab 07/16/23 08:50 Completed Lactic Acid Stat Lab 07/16/23 09:30 Completed Magnesium AMLAB Lab 07/17/23 06:00 Ordered Procalcitonin Stat Lab 07/16/23 08:50 Completed Prothrombin Time INR Stat Lab 07/16/23 08:50 Completed Rapid PCR Covid and Flu A/B Stat Lab 07/16/23 08:53 Completed T4 (Thyroxine) Stat Lab 07/16/23 08:50 Completed Thyroid Stimulating Hormone Stat Lab 07/16/23 08:50 Completed Troponin I Q3H Lab 07/16/23 12:18 Completed Troponin I Q3H Lab 07/16/23 15:10 Received Troponin I Stat Lab 07/16/23 08:50 Completed Blood Culture Stat Micro 07/16/23 10:09 Received Sputum Culture & Gram Stain Stat Micro 07/16/23 09:25 Ordered Venous Blood Gas Stat RT 07/16/23 08:47 Completed CA venous doppler LE LT Stat Y 07/16/23 09:30 Completed ECG initial [place] Routine Y 07/16/23 08:49 Completed ECG Data Tracing #1: I reviewed this ECG and interpreted as documented below: Normal sinus rhythm with a ventricular rate of 66 bpm. Significant motion artifact noted. No obvious acute ST elevations concerning for ischemia. ECG initial impression date: 07/16/23 ECG initial impression time: 08:51 Medical Decision Narrative: In summary, this patient is a 87-year-old female presenting to the Emergency Department for evaluation of shortness of breath. Differential diagnoses considered include but are not limited to COPD exacerbation, CHF exacerbation, viral syndrome, pneumonia, PE, acute on chronic respiratory failure. Ruling out the most morbid conditions drove assessment. It should be noted patient's history includes chronic respiratory failure, COPD, and CHF which are not at goal therapy. This complicates all aspects of care by increasing patient's risk for morbidity. I reviewed patient's past medical records and noted previous admission for similar issues in the past. On exam, the patient is in no acute distress. She does have low oxygen saturations on her home 4 L nasal cannula. She has wheezing and diminished breath sounds bilaterally. She does have bilateral lower extremity edema, left greater than right. According to EMS, this is chronic, but I do not find obvious documentation of this in her medical records. Workup included CBC, CMP, troponin, TSH, T4, BNP, VBG, D-dimer, chest x-ray, EKG, and viral swab. Patient was given 3 [id number] DuoNeb's as well as IV methylprednisolone given her wheezing. EKG has significant motion artifact but does not demonstrate any acute ST elevations. Labs were obtained that demonstrated significant leukocytosis with neutrophilic predominance. I reviewed prior labs which also had demonstrated leukocytosis in the past, however this is slightly higher than her usual. She has chronic compensated respiratory acidosis based on VBG. I independently interpreted x- ray prior to the radiologist read and noted concerns for right-sided pneumonia. Please see their read for final interpretation. Given that the patient has pneumonia, leukocytosis, and acute respiratory failure with tachypnea, concerns for sepsis. She was not given a full sepsis bolus, as she has a history of heart failure and I feel that this would compromise her respiratory status. She was given a 500 cc bolus of IV fluids. I reviewed past medical records which demonstrated that she has had Staph hominis sepsis in the past, susceptible to vancomycin. Given this, she was given IV vancomycin and Zosyn. Blood cultures were sent. She was found to have an elevated D-dimer in the setting of LLE swelling and respiratory failure, so LLE DVT US and CT PE were ordered. On reassessment, patient had good improvement after administration of nebs and methylprednisolone. I independently interpreted CT scans prior to radiology read and noted consolidation as well as bilateral pleural effusions without DVT, PE, or other acute concerns. At this time, patient was deemed to be appropriate for admission for continued evaluation and management of her acute on chronic respiratory failure and sepsis secondary to pneumonia. I had an interactive discussion with Dr. Manrique who advised he would admit the patient. She was admitted in stable condition. Critical Care Critical Care Time Critical Care Time: Yes Attestation: On 07/16/23, the high probability of a clinically significant, sudden or life threatening deterioration of the following system(s) (respiratory failure requiring positive pressure ventilation) required my full and direct attention, intervention and personal management. The time I documented below is in addition to time spent performing reported procedures but includes the following listed in this critical care notation. Total Time Total Critical Care Time: 30
[2023-07-16 08:56] LABS: Coronavirus 19, PCR Not Detected (NotDetected); Influenza A, PCR Not Detected (NotDetected); Influenza B, PCR Not Detected (NotDetected)
--- NOTE | 2023-07-16 08:57 | PC.NURSE ---
xray at bs with portable
[2023-07-16 09:00] LABS: VBG Base Excess 7.8 mmol/L (-2.4-2.3); VBG HCO3 32.9 mmol/L (23-30); VBG Oxygen Saturation 63.1 % (50-70); VBG PH 7.38 mmol/L (7.31-7.41); VBG PO2 33.4 mmol/L (28-40); VBG Total CO2 34.7 mmol/L (23-27)
[2023-07-16] MEDS: IPRATROPIUM/ALBUTEROL 3 ML NEB 9 ML IH (09:01)
[2023-07-16 09:02] LABS: Basophils # 0.3 K/mm3 (0-0.2); Basophils % 1.1 % (0.1-2.0); Eosinophils # 0.1 K/mm3 (0.0-0.4); Eosinophils % 0.4 % (0.1-12.0); Hematocrit 36.8 % (37.0-47.0); Hemoglobin 10.8 g/dL (12.2-16.2); Lymphocytes # 23.1 K/mm3 (0.7-4.5); Mean Corpuscular HGB Conc 29.5 g/dL (31.8-35.4); Mean Platelet Volume 7.7 fl (7.4-10.4); Monocytes # 0.7 K/mm3 (0.1-1.0); Monocytes % 2.3 % (1.7-9.3); Neutrophils # 5.4 K/mm3 (1.8-7.8); Neutrophils % 18.1 % (37.0-80.0); Platelet Count 187 K/mm3 (142-424); Red Blood Count 4.33 M/mm3 (4.20-5.40); Red Cell Distribution Width 16.2 % (11.5-17.5); White Blood Count 29.6 K/mm3 (4.8-10.8)
[2023-07-16] MEDS: METHYLPREDNISOLONE SOD SUCC 125MG VIAL 125 MG IV (09:02)
[2023-07-16 09:03] LABS: VBG PCO2 56.7 mmol/L (35-51)
[2023-07-16 09:06] LABS: Alanine Aminotransferase 17 U/L (12-78); Albumin Level 3.7 g/dl (3.5-5.0); Albumin/Globulin Ratio 1.6 (1.1-1.8); Alkaline Phosphatase 89 U/L (38-126); Anion Gap 5.2 mEq/L (5-15); Aspartate Amino Transferase 27 U/L (14-36); Bilirubin,Total 0.6 mg/dl (0.2-1.3); Blood Urea Nitrogen 16 mg/dl (7-17); Calcium 9.2 mg/dl (8.4-10.2); Carbon Dioxide 39 mmol/L (22.0-30.0); Chloride 100 mmol/L (98-107); Creatinine Clearance Estimated 45 mL/min (50-200); Estimated Glomerular Filt Rate 94 ml/min (>60); GFR (African American) 114 ML/MIN (>60); Globulin 2.3 g/dL (1.3-3.2); Glucose 108 mg/dl (74-100); Potassium 3.2 mmoL/L (3.5-5.1); Sodium 141 mmol/L (136-145)
[2023-07-16 09:08] LABS: MANUAL DIFFERENTIAL MANUAL DIFFERENTIAL (MANUAL DIFF)
[2023-07-16 09:09] LABS: Activated Partial Thrombo Time 24.3 seconds (22.8-30.6); INR 1.06 (0.9-1.1); Prothrombin Time 11.4 seconds (10.1-12.5)
--- NOTE | 2023-07-16 09:10 | PC.NURSE ---
aware of co2 of 56.7 results
[2023-07-16 09:19] LABS: NT Pro Brain Natriuretic Pep. 4680 pg/mL (0-450)
[2023-07-16 09:24] LABS: T4 (Thyroxine) 8.2 ug/dl (5.53-11.0)
[2023-07-16 09:25] LABS: Procalcitonin < 0.030 ng/mL (0.0-2.0); Troponin I < 0.01 ng/ml (0.00-0.034)
--- NOTE | 2023-07-16 09:30 | CT_ITS ---
FINAL REPORT TECHNIQUE: The patient was injected with IV contrast. Axial images were obtained through the chest in a PE protocol. 3-D reconstruction images were also performed. Individualized dose reduction techniques using automated exposure control or adjustment of the MA and/or KV according to patient's size were employed. CLINICAL HISTORY: acute respiratory failure, Elevated D-dimer FINDINGS: Mediastinal vasculature is adequately opacified. No pulmonary artery filling defects are identified to suggest PE. There is no aortic dissection. There is moderate mediastinal adenopathy. Paratracheal lymph nodes measure up to 2.0 cm in greatest dimension. Subcarinal lymph nodes are enlarged measuring up to 2.6 cm in greatest dimension. There is bilateral axillary adenopathy, right greater than left. Individual lymph nodes measure up to 2.5 cm. There are moderate bilateral pleural effusions. Dense bibasilar consolidation is noted. Limited images of the upper abdomen are unremarkable. IMPRESSION: No pulmonary embolus or dissection. Moderate mediastinal and right axillary adenopathy of uncertain etiology. This may be reactive but neoplastic causes are not excluded. Dense bibasilar consolidation and bilateral pleural effusions. Reviewed, Interpreted and Dictated by Holland Patel MD Transcribed by Micheline Burger Authenticated and [facility]
--- NOTE | 2023-07-16 09:30 | CA_ITS ---
FINAL REPORT TECHNIQUE: Ultrasound images of the deep venous system were obtained from the left groin to the calf veins. CLINICAL HISTORY: limb swelling/erythema, elevated dimer,soa FINDINGS: The deep venous system is normally compressible. Normal flow is identified. IMPRESSION: No evidence of left lower extremity DVT. Reviewed, Interpreted and Dictated by Holland Patel MD Transcribed by Micheline Burger Authenticated and [facility]
--- NOTE | 2023-07-16 09:36 | PC.NURSE ---
pt going to ct via stretcher
[2023-07-16 09:37] LABS: Thyroid Stimulating Hormone 0.96 uIU/mL (0.465-4.68)
--- NOTE | 2023-07-16 09:37 | EXP.PHA.CONS ---
Pharmacy Consult Date: 07/16/23 Time: 09:38 Referring provider: DR. BAJWA Reason for Consult:: VANCOMYCIN DOSING Allergies Allergy/AdvReac Type Severity Reaction Status Date / Time No Known Allergies Allergy Verified 04/30/23 08:18 Home Medications Medication Instructions Recorded Confirmed Type amlodipine 10 mg tablet 10 mg PO DAILY High Blood Pressure 02/05/23 04/30/23 History azithromycin 250 mg tablet 250 mg PO MOWEFR Bronchopneumonia 02/05/23 04/30/23 History carvedilol 6.25 mg tablet 6.25 mg PO BID High Blood Pressure 02/05/23 04/30/23 History clopidogrel 75 mg tablet 75 mg PO DAILY Antiplatelet 02/05/23 04/30/23 History donepezil 5 mg tablet 5 mg PO HS Memory 02/05/23 04/30/23 History ergocalciferol (vitamin D2) 1,250 1,250 mcg PO WEEKLY Supplement 02/05/23 04/30/23 History mcg (50,000 unit) capsule (Vitamin D2) gabapentin 100 mg capsule 100 mg PO HS Restless Leg(S) 02/05/23 04/30/23 History isosorbide mononitrate 30 mg 30 mg PO DAILY High Blood Pressure 02/05/23 04/30/23 History tablet,extended release 24 hr lidocaine 5 % topical patch 1 patch topical DAILY #15 ea 02/05/23 04/30/23 Rx (Lidoderm) loratadine 10 mg tablet 10 mg PO DAILY Allergy Symptoms 02/05/23 04/30/23 History montelukast 10 mg tablet 10 mg PO PM Allergy Symptoms 02/05/23 04/30/23 History pravastatin 40 mg tablet 40 mg PO HS High Cholesterol 02/05/23 04/30/23 History sertraline 50 mg tablet 50 mg PO DAILY Mood 02/05/23 04/30/23 History albuterol sulfate 90 mcg/actuation 2 inh inhalation Q4HP PRN 02/12/23 04/30/23 History aerosol inhaler Shortness Of Breath fluticasone furoate 100 1 inh inhalation DAILY Breathing 02/12/23 04/30/23 History mcg-vilanterol 25 mcg/dose Problems inhalation powder (Breo Ellipta) ipratropium 0.5 mg-albuterol 3 mg 3 ml inhalation Q4HP PRN Breathing 02/12/23 04/30/23 History (2.5 mg base)/3 mL nebulization Problems soln furosemide 20 mg tablet 40 mg PO DAILY Fluid 30 days #60 02/14/23 04/30/23 Rx tabs potassium chloride 20 mEq 40 meq PO DAILY 30 days #60 tabs 02/14/23 04/30/23 Rx tablet,extended release(part/cryst) (Klor-Con M) New Prescriptions to Start Prescriptions: Height: 1.63 m Weight: 74.843 kg Laboratory Results:: Laboratory Results - last 24 hr 07/16/23 08:47: VBG pH 7.38, VBG pCO2 56.7 H, VBG pO2 33.4, VBG HCO3 32.9 H, VBG Total CO2 34.7 H, VBG O2 Saturation 63.1, VBG Base Excess 7.8 H 07/16/23 08:50: WBC 29.6 H*, RBC 4.33, Hgb 10.8 L, Hct 36.8 L, MCV 85.0, MCH 25.0 L, MCHC 29.5 L, RDW 16.2, Plt Count 187, MPV 7.7, Neut % (Auto) 18.1 L, Lymph % (Auto) 78.0 H, [place] % (Auto) 2.3, Eos % (Auto) 0.4, Baso % (Auto) 1.1, Neut # (Auto) 5.4, Lymph # (Auto) 23.1 H, [place] # (Auto) 0.7, Eos # (Auto) 0.1, Baso # (Auto) 0.3 H, PT 11.4, INR 1.06, APTT 24.3, D-Dimer 1.10 H, Sodium 141, Potassium 3.2 L, Chloride 100, Carbon Dioxide 39 H, Anion Gap 5.2, BUN 16, Creatinine 0.60, Estimated Creat Clear 45, Estimated GFR 94, Est GFR ( Amer) 114, Glucose 108 H, Calcium 9.2, Total Bilirubin 0.6, AST 27, ALT 17, Alkaline Phosphatase 89, Troponin I < 0.01, NT-Pro-B Natriuret Pep 4680 H, Total Protein 6.0 L, Albumin 3.7, Globulin 2.3, Albumin/Globulin Ratio 1.6, Procalcitonin < 0.030, Thyroxine (T4) 8.2 Medical History: Medical History (Updated 07/16/23 @ 09:30 by Linnette Bajwa DO) Chronic venous stasis Congestive heart failure COPD (chronic obstructive pulmonary disease) Coronary artery disease Diverticulosis Hearing deficit History of skin cancer HTN (hypertension) Onychodystrophy Onychomycosis Senile dementia Splenomegaly Varicose veins of both lower extremities Assessment and Plan Assessment and plan all Dx Assessment and Plan for all problems:: Pharmacokinetic dosing service Objective: Patient: Floor: Age: 87 yo Serum creatinine: 1 mg/dL Height: 64.0 Inches Weight (kg): 74.83 Assessment: IBW (kg): 54.70 Dosing wt(kg): 74.83 Estimated Creatinine clearance (ml/min): 32.9 CRCL method: Cockcroft and Gault using ibw(default). Drug selected: Vancomycin Loading dose (mg): 0 Vd (liters): 59.9 (factor used: 0.8 L/kg) Gamaliel (hr-1): 0.032 Half life (hrs): 21.66 Recommended dose: 1000 mg Interval: 24 hrs Infusion time (hrs): 2.0 Predicted peak (mcg/mL): 30.2 Predicted trough (mcg/mL): 14.94 Total body weight is being used for vancomycin dosing. Recommendations: Give Vancomycin 1000 mg q 24 hrs with an expected Cpeak of 30.2 mcg/ml and an expected Ctrough of 14.94 mcg/ml ----Vanco only - ignore for aminoglycosides----- CLvanco= 1.92 L/hr AUC 0-24 /IVANNA Data: IVANNA 0.5 mcg/mL: AUC/IVANNA: 1041.7 IVANNA 1.0 mcg/mL: AUC/IVANNA: 520.8 --------- IVANNA 1.5 mcg/mL: AUC/IVANNA: 347.2 IVANNA 2.0 mcg/mL: AUC/IVANNA: 260.4
[2023-07-16 09:46] LABS: Lactic Acid 0.6 mmol/L (0.7-2.1)
[2023-07-16] MEDS: 0.9 % SODIUM CHLORIDE 50 ML VIAL 40 ML IV (09:52)
[2023-07-16] MEDS: SODIUM CHLORIDE 0.9% 10ML SYR (RAD ONLY) 10 ML IV (09:52)
[2023-07-16] MEDS: IOPAMIDOL-370 (76%);100ML BOTTLE 70 ML IV (09:52)
--- NOTE | 2023-07-16 09:55 | PC.NURSE ---
pt back to room from ct
--- NOTE | 2023-07-16 09:55 | PC.NURSE ---
sweta at doing Heidy Doppler
--- NOTE | 2023-07-16 10:08 | PC.NURSE ---
called respiratory per dr gaxiola for pt to be placed on vapotherm
--- NOTE | 2023-07-16 10:10 | PC.NURSE ---
pt was put on bedpan to void
--- NOTE | 2023-07-16 10:15 | PC.NURSE ---
respiratory at bs placing pt on vapotherm
[2023-07-16] MEDS: PIPERACILLIN/TAZO 3.375 GM in 0.9 % SODIUM CHLORIDE 50 ML IV (10:16)
[2023-07-16] MEDS: 0.9 % SODIUM CHLORIDE 1000ML 500 ML 999 ML IV (10:17)
[2023-07-16] MEDS: VANCOMYCIN CONSULT REQUEST 1 EACH NOTAPPLIC (10:29)
[2023-07-16 10:36] LABS: Lymphocytes % 81 % (10-50); Monocytes % 2 % (2-9); Neutrophils % 16 % (42-76); Total Cells Counted 100
[2023-07-16 10:46] LABS: Anisocytosis 1+; Platelet Estimate Normal
[2023-07-16 10:47] LABS: Microcytosis 1+
[2023-07-16 10:48] LABS: Poikilocytosis 1+
[2023-07-16] MEDS: VANCOMYCIN HCL 1,000 MG in 0.9 % SODIUM CHLORIDE 250 ML 125 MG IV (10:54)
--- NOTE | 2023-07-16 11:11 | PC.NURSE ---
CHECKED ON PT SHE IS SLEEPING IN BED,CALL LIGHT AT BS
--- NOTE | 2023-07-16 12:23 | PC.NURSE ---
CALLED CARE MANAGEMENT FOR BED ASSIGNMENT
--- NOTE | 2023-07-16 12:24 | P.HP_ITS ---
History of Present Illness *Admission Date: 07/16/23 *Reason for visit:: short of breath *History of present illness: Ms. Lao is an 87-year-old female with history of HFpEF, lymphoma, chronic hypoxemic respiratory failure, dementia, splenomegaly, CAD, hypertension who presented to the ER via EMS because of increased shortness of breath. She reports symptoms began last night with increased shortness of breath. Denies slade fever but has had a cough, subjective fevers. No slade vomiting or diarrhea. Sats are in the 60s at home on 4 L. Improved to the 80s with transitioning to oxygen from EMS source. Having significant wheeze. Treated with a nebulizer treatment and transferred to the ER for further management. On arrival to the ER, still hypoxic. Patient was initiated on Vapotherm. Workup performed showing elevated white count of 28,000, chest imaging with moderate ef fusions bilaterally. Patient feeling more weak than usual. Medicine consulted for admission and treatment of pneumonia and acute on chronic hypoxemic respiratory failure. PSI/port 128. In the ER, started on empiric antibiotics with Zosyn and vancomycin. Sats in the low 90s on Vapotherm 35L 100%. No family at bedside by the time of my evaluation. Pleasant and at baseline mentation. Oriented to self only. Know she is at a hospital but thinks she is in [place]. Poor historian. Denies syncope, chest pain. [facility] Disclaimer: The information contained in this section may have been updated after the patient was seen, as this information can be updated by other users. Medical History Chronic venous stasis Congestive heart failure COPD (chronic obstructive pulmonary disease) Coronary artery disease Diverticulosis Hearing deficit History of skin cancer HTN (hypertension) Onychodystrophy Onychomycosis Senile dementia Splenomegaly Varicose veins of both lower extremities Surgical History History of breast lump/mass excision History of hemorrhoidectomy Family History Father Mother Heart attack Mother Lung cancer Father Stroke Social History Smoking Status: Former smoker alcohol intake: never current occupational status: retired and disabled Travel in the last 8 weeks: None household members: family housing: house Review of Systems Review of Systems Review of systems (narrative): 14 point review of systems performed, pertinent positives and negatives as per [facility] Meds Home Medications and Allergies Home Medications Medication Instructions Recorded Confirmed Type amlodipine 10 mg tablet 10 mg PO DAILY High Blood Pressure 02/05/23 07/16/23 History azithromycin 250 mg tablet 250 mg PO MOWEFR Bronchopneumonia 02/05/23 07/16/23 History carvedilol 6.25 mg tablet 6.25 mg PO BID High Blood Pressure 02/05/23 07/16/23 History clopidogrel 75 mg tablet 75 mg PO DAILY Antiplatelet 02/05/23 07/16/23 History donepezil 5 mg tablet 5 mg PO HS Memory 02/05/23 07/16/23 History ergocalciferol (vitamin D2) 1,250 1,250 mcg PO WEEKLY Supplement 02/05/23 07/16/23 History mcg (50,000 unit) capsule (Vitamin D2) gabapentin 100 mg capsule 100 mg PO HS Restless Leg(S) 02/05/23 07/16/23 History isosorbide mononitrate 30 mg 30 mg PO DAILY High Blood Pressure 02/05/23 07/16/23 History tablet,extended release 24 hr loratadine 10 mg tablet 10 mg PO DAILY Allergy Symptoms 02/05/23 07/16/23 Hi story montelukast 10 mg tablet 10 mg PO PM Allergy Symptoms 02/05/23 07/16/23 History pravastatin 40 mg tablet 40 mg PO HS High Cholesterol 02/05/23 07/16/23 History sertraline 50 mg tablet 50 mg PO DAILY Mood 02/05/23 07/16/23 History albuterol sulfate 90 mcg/actuation 2 inh inhalation Q4HP PRN 02/12/23 07/16/23 History aerosol inhaler Shortness Of Breath fluticasone furoate 100 1 inh inhalation DAILY Breathing 02/12/23 07/16/23 History mcg-vilanterol 25 mcg/dose Problems inhalation powder (Breo Ellipta) ipratropium 0.5 mg-albuterol 3 mg 3 ml inhalation Q4HP PRN Breathing 02/12/23 07/16/23 History (2.5 mg base)/3 mL nebulization Problems soln furosemide 20 mg tablet 40 mg PO DAILY Fluid 30 days #60 02/14/23 07/16/23 Rx tabs potassium chloride 20 mEq 40 meq PO DAILY 30 days #60 tabs 02/14/23 07/16/23 Rx tablet,extended release(part/cryst) (Susan Monique) New Prescriptions to Start Prescriptions: Allergies Allergy/AdvReac Type Severity Reaction Status Date / Time No Known Allergies Allergy Verified 04/30/23 08:18 Exam Data for Last 24 hours Vital signs and Labs for Last 24 Hours: Temp Pulse Resp BP Pulse Ox O2 Del Method O2 Flow Rate 98.8 F 66 22 170/75 H 90 L Vapotherm 30 07/16/23 08:47 07/16/23 12:00 07/16/23 08:47 07/16/23 12:00 07/16/23 12:00 07/16/23 12:00 07/16/23 10:20 FiO2 100 07/16/23 10:20 Laboratory Results - last 24 hr 07/16/23 08:47: VBG pH 7.38, VBG pCO2 56.7 H, VBG pO2 33.4, VBG HCO3 32.9 H, VBG Total CO2 34.7 H, VBG O2 Saturation 63.1, VBG Base Excess 7.8 H 07/16/23 08:50: WBC 29.6 H*, RBC 4.33, Hgb 10.8 L, Hct 36.8 L, MCV 85.0, MCH 25.0 L, MCHC 29.5 L, RDW 16.2, Plt Count 187, MPV 7.7, Neut % (Auto) 18.1 L, Lymph % (Auto) 78.0 H, [place] % (Auto) 2.3, Eos % (Auto) 0.4, Baso % (Auto) 1.1, Neut # (Auto) 5.4, Lymph # (Auto) 23.1 H, [place] # (Auto) 0.7, Eos # (Auto) 0.1, Baso # (Auto) 0.3 H, Total Counted 100, Neutrophils % (Manual) 16 L, Band Neutrophils % 1.0, Lymphocytes % (Manual) 81 H, Monocytes % (Manual) 2, Platelet Estimate Normal, Poikilocytosis 1+, Anisocytosis 1+, Microcytosis 1+, Macrocytosis Facility Service Manager, PT 11.4, INR 1.06, APTT 24.3, D-Dimer 1.10 H, Sodium 141, Potassium 3.2 L, Chloride 100, Carbon Dioxide 39 H, Anion Gap 5.2, BUN 16, Creatinine 0.60, Estimated Creat Clear 45, Estimated GFR 94, Est GFR ( Amer) 114, Glucose 108 H, Calcium 9.2, Total Bilirubin 0.6, AST 27, ALT 17, Alkaline Phosphatase 89, Troponin I < 0.01, NT-Pro-B Natriuret Pep 4680 H, Total Protein 6.0 L, Albumin 3.7, Globulin 2.3, Albumin/Globulin Ratio 1.6, Procalcitonin < 0.030, TSH 0.96, Thyroxine (T4) 8.2 07/16/23 08:53: SARS-CoV-2 (PCR) Not detected, Influenza A Untype (PCR) Not detected, Influenza Type B (PCR) Not detected 07/16/23 09:30: Lactate 0.6 L I & O for Last 24 hours: Intake & Output 07/13/23 07/14/23 07/15/23 07/16/23 23:59 23:59 23:59 23:59 Weight 74.843 kg Constitutional Constitutional: moderate distress, chronically ill appearing and cooperative *Routine HEENT Exam Head: Present normocephalic Eye: Present EOMI and PERRL ENT: Present mucous membranes moist *Routine Neck Exam Neck: Present supple; Absent JVD or lymphadenopathy *Routine Respiratory Exam Respiratory: Present accessory muscle use, respiratory distress, rhonchi, crackles, diminished air movement and symmetric chest movement *Routine Cardiovascular Exam Cardiovascular: Present RRR *Routine Abdominal Exam Abdominal: Present soft and normoactive bowel sounds; Absent tenderness *Routine Rectal Exam Rectal:: deferred *Routine Genitalia Exam Genitalia:: deferred *Routine Extremities Exam Extremities: Present edema (1+to knees), full ROM, pulses intact and normal capillary refill; Absent cyanosis or clubbing Comments: Bilateral chronic venous stasis changes with varicosities *Routine Skin Exam Skin: Present warm; Absent rash *Routine Neurological Exam Neurological: Present alert, moving all extremities, vision grossly intact and normal speech; Absent sensory deficit, motor deficit or hearing grossly intact Routine Psychiatric Exam Psychiatric: Present normal affect, normal thought process, cooperative, good insight and good judgment Assessment and Plan *Assessment and plan (1) Sepsis due to pneumonia: Status: Acute Category: Medical Code(s): J18.9 - Pneumonia, unspecified organism; A41.9 - Sepsis, unspecified organism (2) Acute and chronic respiratory failure with hypoxia: Status: Acute Category: Medical Code(s): J96.21 - Acute and chronic respiratory failure with hypoxia (3) Lymphoma: Status: Chronic Category: Medical Code(s): C85.90 - Non-Hodgkin lymphoma, unspecified, unspecified site (4) Acute on chronic heart failure with preserved ejection fraction (HFpEF): Status: Acute Category: Medical Code(s): I50.33 - Acute on chronic diastolic (congestive) heart failure (5) Leukocytosis: Status: Acute Qualifiers: Leukocytosis type: lymphocytosis Qualified Code(s): D72.820 - Lympho cytosis (symptomatic) Category: Medical Code(s): D72.829 - Elevated white blood cell count, unspecified (6) Coronary artery disease: Status: Acute Qualifiers: Associated angina: without angina Coronary Disease-Associated Artery/Lesion type: [place] artery [place] vs. transplanted heart: [place] heart Qualified Code(s): I25.10 - Atherosclerotic heart disease of [place] coronary artery without angina pectoris Category: Medical Code(s): I25.10 - Atherosclerotic heart disease of [place] coronary artery without angina pectoris (7) Dementia: Status: Acute Qualifiers: Dementia severity: moderate Dementia type: unspecified type Category: Medical Code(s): F03.90 - Unspecified dementia, unspecified severity, without behavioral disturbance, psychotic disturbance, mood disturbance, and anxiety (8) COPD (chronic obstructive pulmonary disease): Status: Chronic Category: Medical Code(s): J44.9 - Chronic obstructive pulmonary disease, unspecified Plan This is an 87-year-old female that presents to [facility] emergency department with concerns of shortness of air and found to have increased pulmonary congestion, elevated BNP, acute on chronic hypoxemic respiratory failure with pleural effusions and concern for pneumonia. Meeting sepsis criteria with leukocytosis, tachypnea, concern for pneumonia on chest imaging. Discussed case with ER physician, request admission for increased oxygen requirement, antibiotic needs, high risk for decompensation. Medicine agreed to admit. Pulmonology consulted to assist with care. Problems addressed as follows: Acute on chronic respiratory failure with hypoxia Sepsis with pneumonia Acute on chronic HFpEF COPD Pulse oximetry monitoring, goal saturation greater 90%. Currently on Vapotherm 35 L, 100%. Sats in the low 90s. CT of chest obtained, personally reviewed showing lymphadenopathy diffusely and bilateral groundglass opacities with edema and moderate effusions. Continue DuoNebs every 4 hours Continue Zosyn every 6 hours IV and vancomycin IV. Monitoring for toxicity. Echo reviewed from 10/16/2021 with EF 55% and previous echo (2020) with elevated RVSP 62 mmHg; repeat echo pending. Initiated on Lasix 80 mg IV x 1. Will continue with Lasix 40 mg IV twice daily. Goal -1 L in the next 24 hours. Continue home carvedilol 6.25 mg twice daily, Plavix 75 mg daily, isosorbide 30 mg daily, amlodipine, holding lisinopril. Continue home aspirin 81mg daily, continue pravastatin 40 mg nightly Leukocytosis Lymphoma Previous known history of lymphoma. Follows with [facility], Dr. Lunsford in oncology WBC elevated 28k, this is higher than her baseline. Monitor for improvement with antibiotics. repeat CBC and CMP ordered for the morning. Plan for further discussion with family about goals of care when they are at bedside. Previous discussions last visit included hospice, family. Interested at that time. As they are not present at this time and given patient's dementia, she is full code and we will proceed with aggressive treatment of her active conditions Dementia Routine nursing interaction Continue donepezil 5 mg nightly Continue Zoloft 50 mg daily Fall precautions Aspiration precautions VTE prophylaxis: Heparin 5000 units 3 times daily CODE STATUS: full code
--- NOTE | 2023-07-16 12:35 | EXP.PULM.CON ---
History of Present Illness History of present illness: Ms. Juares is a 87-year-old female with reported history of heart failure with preserved ejection fraction, lymphoma, chronic hypoxic respiratory failure, dementia, splenomegaly, CAD and hypertension presented to the ER with worsening respiratory's needing high flow nasal oxygen supplementation pulmonary was called for further evaluation and management [facility] Disclaimer: The information contained in this section may have been updated after the patient was seen, as this information can be updated by other users. Medical History (Updated 07/16/23 @ 16:30 by Nagi Toussaint MD) Chronic venous stasis Congestive heart failure COPD (chronic obstructive pulmonary disease) Coronary artery disease Diverticulosis Hearing deficit History of skin cancer HTN (hypertension) Onychodystrophy Onychomycosis Pleural effusion, bilateral Senile dementia Splenomegaly Varicose veins of both lower extremities Surgical History History of breast lump/mass excision History of hemorrhoidectomy Family History Father Mother Heart attack Mother Lung cancer Father Stroke Social History (Updated 07/16/23 @ 14:01 by Ivory Gimenez, RN) Smoking Status: Former smoker alcohol intake: never current occupational status: retired and disabled Travel in the last 8 weeks: None household members: family housing: house Review of Systems Review of Systems Review of systems (narrative): Limited Constitutional Constitutional: Reports body ache(s) and Reports fatigue *Cardiovascular Cardiovascular: Reports dyspnea, Reports dyspnea on exertion and Reports orthopnea *Respiratory Respiratory: Reports chest congestion, Reports dyspnea, Reports dyspnea on exertion, Denies excessive phlegm production and Denies wheezing *Gastrointestinal Gastrointestinal: Denies abdominal pain, Denies belching and Denies cramping *Musculoskeletal Musculoskeletal: Reports back pain, Reports myalgias and Reports other (No small joint swelling or Pain) Psychiatric Psychiatric: Denies homicidal ideation and Denies suicidal ideation Endocrine Endocrine: Reports fatigue and Denies heat intolerance Hematologic/Lymphatic Hematologic/Lymphatic: Denies easy bleeding and Denies lymphadenopathy Allergic/Immunologic Allergic/Immunologic: Denies wheezing Pulmonology Exam Inpatient Vital signs and Labs for Last 24 Hours: Temp Pulse Resp BP Pulse Ox O2 Del Method O2 Flow Rate 98.8 F 66 22 170/75 H 90 L Vapotherm 30 07/16/23 08:47 07/16/23 12:00 07/16/23 08:47 07/16/23 12:00 07/16/23 12:00 07/16/23 12:00 07/16/23 10:20 FiO2 100 07/16/23 10:20 Laboratory Results - last 24 hr 07/16/23 08:47: VBG pH 7.38, VBG pCO2 56.7 H, VBG pO2 33.4, VBG HCO3 32.9 H, VBG Total CO2 34.7 H, VBG O2 Saturation 63.1, VBG Base Excess 7.8 H 07/16/23 08:50: WBC 29.6 H*, RBC 4.33, Hgb 10.8 L, Hct 36.8 L, MCV 85.0, MCH 25.0 L, MCHC 29.5 L, RDW 16.2, Plt Count 187, MPV 7.7, Neut % (Auto) 18.1 L, Lymph % (Auto) 78.0 H, Teller % (Auto) 2.3, Eos % (Auto) 0.4, Baso % (Auto) 1.1, Neut # (Auto) 5.4, Lymph # (Auto) 23.1 H, Teller # (Auto) 0.7, Eos # (Auto) 0.1, Baso # (Auto) 0.3 H, Total Counted 100, Neutrophils % (Manual) 16 L, Band Neutrophils % 1.0, Lymphocytes % (Manual) 81 H, Monocytes % (Manual) 2, Platelet Estimate Normal, Poikilocytosis 1+, Anisocytosis 1+, Microcytosis 1+, Macrocytosis Inspection Machine Tender, PT 11.4, INR 1.06, APTT 24.3, D-Dimer 1.10 H, Sodium 141, Potassium 3.2 L, Chloride 100, Carbon Dioxide 39 H, Anion Gap 5.2, BUN 16, Creatinine 0.60, Estimated Creat Clear 45, Estimated GFR 94, Est GFR ( Amer) 114, Glucose 108 H, Calcium 9.2, Total Bilirubin 0.6, AST 27, ALT 17, Alkaline Phosphatase 89, Troponin I < 0.01, NT-Pro-B Natriuret Pep 4680 H, Total Protein 6.0 L, Albumin 3.7, Globulin 2.3, Albumin/Globulin Ratio 1.6, Procalcitonin < 0.030, TSH 0.96, Thyroxine (T4) 8.2 07/16/23 08:53: SARS-CoV-2 (PCR) Not detected, Influenza A Untype (PCR) Not detected, Influenza Type B (PCR) Not detected 07/16/23 09:30: Lactate 0.6 L I & O for Labs for Last 24 Hours: Intake & Output 07/13/23 07/14/23 07/15/23 07/16/23 23:59 23:59 23:59 23:59 Weight 165 lb Constitutional: Present severe distress Head: Present normocephalic and atraumatic ENT: Present normal exam, normal oropharynx and mucous membranes moist Neck: Present normal inspection and full ROM Respiratory: Present respiratory distress, rhonchi, diminished air movement and able to speak in complete sentences; Absent wheezes Cardiac: Present S1/S2, Tachycardia and radial pulses present GI: Present soft and distention; Absent tenderness or guarding Rectal (female): Present deferred (female): Present deferred Skin: Present intact; Absent cyanosis or jaundice Neuro: Present alert and awake; Absent oriented x 3 Extremities: Present normal inspection; Absent clubbing or cyanosis Psychiatric: Present normal affect and cooperative Meds Home Medications and Allergies Home Medications Medication Instructions Recorded Confirmed Type amlodipine 10 mg tablet 10 mg PO DAILY High Blood Pressure 02/05/23 07/16/23 History azithromycin 250 mg tablet 250 mg PO MOWEFR Bronchopneumonia 02/05/23 07/16/23 History carvedilol 6.25 mg tablet 6.25 mg PO BID High Blood Pressure 02/05/23 07/16/23 History clopidogrel 75 mg tablet 75 mg PO DAILY Antiplatelet 02/05/23 07/16/23 History donepezil 5 mg tablet 5 mg PO HS Memory 02/05/23 07/16/23 History ergocalciferol (vitamin D2) 1,250 1,250 mcg PO WEEKLY Supplement 02/05/23 07/16/23 History mcg (50,000 unit) capsule (Vitamin D2) gabapentin 100 mg capsule 100 mg PO HS Restless Leg(S) 02/05/23 07/16/23 History isosorbide mononitrate 30 mg 30 mg PO DAILY High Blood Pressure 02/05/23 07/16/23 History tablet,extended release 24 hr loratadine 10 mg tablet 10 mg PO DAILY Allergy Symptoms 02/05/23 07/16/23 History montelukast 10 mg tablet 10 mg PO PM Allergy Symptoms 02/05/23 07/16/23 History pravastatin 40 mg tablet 40 mg PO HS High Cholesterol 02/05/23 07/16/23 History sertraline 50 mg tablet 50 mg PO DAILY Mood 02/05/23 07/16/23 History albuterol sulfate 90 mcg/actuation 2 inh inhalation Q4HP PRN 02/12/23 07/16/23 History aerosol inhaler Shortness Of Breath ipratropium 0.5 mg-albuterol 3 mg 3 ml inhalation Q4HP PRN Breathing 02/12/23 07/16/23 History (2.5 mg base)/3 mL nebulization Problems soln furosemide 20 mg tablet 40 mg PO DAILY Fluid 30 days #60 02/14/23 07/16/23 Rx tabs potassium chloride 20 mEq 20 meq PO DAILY 07/16/23 07/16/23 History tablet,extended release(part/cryst) New Prescriptions to Start Prescriptions: Allergies Allergy/AdvReac Type Severity Reaction Status Date / Time No Known Allergies Allergy Verified 04/30/23 08:18 Results Laboratory Findings 07/16/23 08:50 07/16/23 08:50 PT/INR, D-dimer PT 11.4 seconds (10.1-12.5) 07/16/23 08:50 INR 1.06 (0.9-1.1) 07/16/23 08:50 D-Dimer 1.10 ug/mL (0.0-0.5) H 07/16/23 08:50 Abnormal lab findings: Abnormal Labs 07/16/23 07/16/23 07/16/23 08:47 08:50 09:30 WBC 29.6 H* Hgb 10.8 L Hct 36.8 L MCH 25.0 L MCHC 29.5 L Neut % (Auto) 18.1 L Lymph % (Auto) 78.0 H Lymph # (Auto) 23.1 H Baso # (Auto) 0.3 H Neutrophils % (Manual) 16 L Lymphocytes % (Manual) 81 H D-Dimer 1.10 H VBG pCO2 56.7 H VBG HCO3 32.9 H VBG Total CO2 34.7 H VBG Base Excess 7.8 H Potassium 3.2 L Carbon Dioxide 39 H Glucose 108 H Lactate 0.6 L NT-Pro-B Natriuret Pep 4680 H Total Protein 6.0 L Assessment and Plan *Assessment and plan (1) Sepsis due to pneumonia: Status: Acute Category: Medical Code(s): J18.9 - Pneumonia, unspecified organism; A41.9 - Sepsis, unspecified organism (2) Acute on chronic hypoxic respiratory failure: Status: Acute Category: Medical Code(s): J96.21 - Acute and chronic respiratory failure with hypoxia (3) Pleural effusion, bilateral: Status: Acute Category: Medical Code(s): J90 - Pleural effusion, not elsewhere classified Plan Ms. Juares is a 87-year-old female with reported history of heart failure with preserved ejection fraction, lymphoma, chronic hypoxic respiratory failure, dementia, splenomegaly, CAD and hypertension presented to the ER with worsening respiratory's needing high flow nasal oxygen supplementation pulmonary was called for further evaluation and management CT upon admission bilateral pleural effusions right greater than left. Adjacent atelectasis noted. Bilateral upper lobe groundglass opacity and septal thickening noted. No other significant airspace disease noted. Lymphadenopathy noted. CTA and lower extremity venous Doppler no evidence of thrombosis Significant neutrophilic leukocytosis upon admission. VBG upon admission did not show any evidence of significant hypercarbic respiratory failure, pH is 7.38. On examination patient appeared to be in severe respiratory distress. On nasal cannula wheezing noted on auscultation bilateral decreased breath sounds. Plan: Continue high flow nasal cannula O2 supplementation to maintain O2 saturation goal of 90 to 95%, 30 L 80%. Continue to wean as tolerated. Lasix 40 mg IV once after replating her potassium. Consider repeat echocardiogram Ongoing family discussions regarding goals of care. Continue current antibiotics pending culture results, will have low threshold to de-escalate antibiotics as patient noted to have chronic leukocytosis 2/2 Lymphoma Will hold off on performing thoracentesis pending clinical improvement. Total critical care time spent on this patient is 35 minutes managing acute hypoxic respiratory failure needing HFNC ventilaiton. This time spent include reviewing test results including interpreting chest x-rays, labs and venous blood gas, optimizing the HFNC settings,formulating plan of care, discussing the plan of care with the team and the nursing staff.
--- NOTE | 2023-07-16 12:46 | PC.NURSE ---
Report called to KAY Gonzalez
--- NOTE | 2023-07-16 12:51 | PC.NURSE ---
500ml bolus given due to elevated BNP
[2023-07-16 13:08] LABS: Troponin I < 0.01 ng/ml (0.00-0.034)
--- NOTE | 2023-07-16 13:52 | CA_ITS ---
APPROVED REPORT EXAM: Comprehensive 2D, Doppler, and color-flow Echocardiogram Display Manager: Elizabeth June CRT Ht: 5 ft 2 in Wt: 160lbs BSA: 1.74 BP: 170/75 mmHg Indications: CHF,SOA,COPD,LYMPHOMA,HTN,EX SMOKER,PLEURAL EFFUSIONS 2D Dimensions Left Atrium 5.65 cm F: 2.7 - 3.8 LA Volume 59.70 mL LVOT 1.68 cm (M/F) 1.5-2.5 LA Volume Index 34.31 mL/m2 (M/F) 16-34 EF AP4 58.60 % GL Strain -16.3 % M-Mode Dimensions RVDd 3.36 cm (0.9-2.6) LVDd 3.42 cm (3.5-5.7) Ao Diam 3.09 cm (2.0-3.7) LVDs 1.88 cm (3.5-5.7) IVSd 1.75 cm (0.6-1.1) PWd 0.77 cm (0.6-1.1) EF (Teich) 77.30% FS 45.00% EDV (Teich) 48.10 mL TAPSE 3.02 (<1.7) ESV (Teich) 10.90 mL LV Diastology E Decel Time 106 (160-240 msec) E/A Ratio 1.6 MED E' 11.8 (>= 7 cm/sec) MED A' 6.80 cm/s E'/MED E' Ratio 11.86 (<= 14) LAT E' 3.9 (>= 10 cm/sec) LAT A' 8.10 cm/s E/LAT E' Ratio 35.87 (<= 14) Aortic Valve LVOT Max 177.0 (70-110 cm/s) DANI Index 0.99 cm2/m2 LVOT VTI 46.49 cm AoV Peak Sabino. 241.0 (50-130 cm/s) AO Peak GR. 21.90 mmHg AO Mean GR. 11.20 (<5 mmHg) AO VTI 59.6 (18-25 cm) DANI (VTI) 1.73 (2.5-4.5 cm2) Mitral Valve MV E Max Sabino. 140.0 (40-130 cm/s) MV A Velocity 88.0 (40-130 cm/s) E/A Ratio 1.59 MV Decel. Time 106 (160-240 ms) Tricuspid Valve TR P. Velocity 427.00 cm/s RAP Estimate 10.00 mmHg RVSP 83.00 mmHg Left Ventricle The left ventricle is normal size. The left ventricular systolic function is normal. The left ventricular ejection fraction is within the normal range. There is increased LV wall thickness. There is normal LV segmental wall motion. Grade 2 diastolic dysfunction is present. LVEF is 65%. Right Ventricle The right ventricle is normal size. The right ventricular systolic function is normal. Atria Left atrium is moderately dilated. Right atrium is mildly dilated. The interatrial septum is not well visualized. Aortic Valve The aortic valve is moderately thickened. Mild valvular aortic stenosis. DANI by continuity equation is 1.8 cm2. Peak velocity 2.5 m/s. Mean AV gradient is 11 mmHg. Max AV gradient is 25 mmHg. Trace aortic regurgitation. Mitral Valve Moderate mitral annular calcification (MAC). The mitral valve leaflets are mildly thickened. No evidence of mitral valve stenosis. Mean MV gradient 4 mmHg (HR 82 bpm). At least mild mitral regurgitation is present. The MR jet is eccentric and may be underestimated on TTE. Tricuspid Valve The tricuspid valve leaflets are thin and pliable. Moderate tricuspid regurgitation. RVSP > 60 mmHg. Pulmonic Valve The pulmonary valve is normal in structure. Mild pulmonic regurgitation. Great Vessels The aortic root is normal in size. The ascending aorta is not well visualized. IVC is normal in size and collapses >50% with inspiration. Pericardium There is no pericardial effusion. Pleural effusion is present. Other Information Study Quality: Fair Conclusion Normal biventricular systolic function. Grade 2 diastolic dysfunction. Biatrial dilation. At least mild MR (may be underestimated on TTE due to eccentric jet). Mild (DANI by continuity equation is 1.8 cm2. Peak velocity 2.5 m/s. Mean AV gradient is 11 mmHg. Max AV gradient is 25 mmHg). Moderate TR. Markedly elevated RVSP > 60 mmHg. Electronically signed by : Zoraida Piedra MD 07/19/2023 17:44:05
--- NOTE | 2023-07-16 14:03 | P.CONPHA_ITS ---
Pharmacy Intervention Comments: Verified home medications using fill history and faxed med list from PCP office (Kelle Wayne APRN at [facility], [place]). Of note, per faxed record and fill history, Breo Ellipta has not been filled since 09/10/22.
[2023-07-16] MEDS: FUROSEMIDE 40MG/4ML VIAL 80 MG IV (14:21)
[2023-07-16] MEDS: ISOSORBIDE MONO 30MG TAB.ER.24H 30 MG PO (14:22)
[2023-07-16] MEDS: CARVEDILOL 6.25MG TABLET 6.25 MG PO (14:22)
[2023-07-16] MEDS: POTASSIUM CHLORIDE 20MEQ TAB 20 MEQ PO ×2 (14:22→20:40)
[2023-07-16] MEDS: IPRATROPIUM/ALBUTEROL 3 ML NEB IH ×3 (14:43→21:17)
[2023-07-16 15:43] LABS: Troponin I < 0.01 ng/ml (0.00-0.034)
[2023-07-16] MEDS: MONTELUKAST SODIUM 10MG TAB 10 MG PO (17:37)
[2023-07-16] MEDS: PIPERCILLIN/TAZO 3.375 GM in 0.9 % SODIUM CHLORIDE 50 ML IV ×2 (17:37→23:00)
[2023-07-16] MEDS: DONEPEZIL 5MG TAB 5 MG PO (20:40)
[2023-07-16] MEDS: HEPARIN SODIUM 5,000 UNIT/ML VIAL 5000 UNIT SQ (20:41)
[2023-07-16] MEDS: GABAPENTIN 100MG CAPSULE 100 MG PO (20:41)
[2023-07-17] VITALS (22 sets, daily range): BP systolic 121–159; BP diastolic 56–77; PULSE 52–87; RESP 14–26; TEMP 36.4–36.8; O2SAT 90–99; BMI 29.1
[2023-07-17] MEDS: IPRATROPIUM/ALBUTEROL 3 ML NEB IH ×6 (01:19→21:21)
[2023-07-17] MEDS: PIPERCILLIN/TAZO 3.375 GM in 0.9 % SODIUM CHLORIDE 50 ML IV ×4 (05:27→23:00)
[2023-07-17 06:53] LABS: Basophils # 0.3 K/mm3 (0-0.2); Basophils % 0.7 % (0.1-2.0); Hematocrit 32.9 % (37.0-47.0); Hemoglobin 11.4 g/dL (12.2-16.2); Lymphocytes # 30.3 K/mm3 (0.7-4.5); Lymphocytes % 80.4 % (10-50); Mean Corpuscular HGB Conc 34.7 g/dL (31.8-35.4); Mean Corpuscular Hemoglobin 29.2 pg (27.0-31.2); Mean Corpuscular Volume 84.2 fl (81-99); Mean Platelet Volume 8.2 fl (7.4-10.4); Monocytes % 2.6 % (1.7-9.3); Neutrophils # 6.1 K/mm3 (1.8-7.8); Neutrophils % 16.2 % (37.0-80.0); Platelet Count 186 K/mm3 (142-424); Red Cell Distribution Width 16.2 % (11.5-17.5); White Blood Count 37.6 K/mm3 (4.8-10.8)
[2023-07-17 06:58] LABS: MANUAL DIFFERENTIAL MANUAL DIFFERENTIAL (MANUAL DIFF)
[2023-07-17 07:02] LABS: Chloride 99 mmol/L (98-107)
[2023-07-17 07:03] LABS: Potassium 3.1 mmoL/L (3.5-5.1); Sodium 141 mmol/L (136-145)
[2023-07-17 07:05] LABS: Alanine Aminotransferase 20 U/L (12-78); Alkaline Phosphatase 94 U/L (38-126); Aspartate Amino Transferase 27 U/L (14-36); Bilirubin,Total 0.6 mg/dl (0.2-1.3); Blood Urea Nitrogen 14 mg/dl (7-17); Creatinine Clearance Estimated 43 mL/min (50-200); Estimated Glomerular Filt Rate 79 ml/min (>60); GFR (African American) 95 ML/MIN (>60)
[2023-07-17 07:06] LABS: Albumin Level 3.6 g/dl (3.5-5.0); Albumin/Globulin Ratio 1.6 (1.1-1.8); Calcium 9.2 mg/dl (8.4-10.2); Globulin 2.3 g/dL (1.3-3.2); Glucose 107 mg/dl (74-100); Magnesium 2.1 mg/dl (1.6-2.3); Total Protein,Serum 5.9 g/dl (6.3-8.2)
[2023-07-17 07:36] LABS: Anion Gap 6.1 mEq/L (5-15); Carbon Dioxide 39 mmol/L (22.0-30.0)
[2023-07-17 07:43] LABS: Lymphocytes % 80 % (10-50); Monocytes % 2 % (2-9); Neutrophils % 18 % (42-76); Total Cells Counted 100
[2023-07-17 07:44] LABS: Platelet Estimate Normal; RBC Morphology Normal
[2023-07-17] MEDS: POTASSIUM CHLORIDE 20MEQ TAB 20 MEQ PO ×3 (08:02→20:12)
[2023-07-17] MEDS: FUROSEMIDE 40MG/4ML VIAL 40 MG IV ×2 (08:02→16:16)
[2023-07-17] MEDS: HEPARIN SODIUM 5,000 UNIT/ML VIAL 5000 UNIT SQ ×3 (08:03→20:12)
[2023-07-17] MEDS: AMLODIPINE 5MG TABLET 5 MG PO (08:03)
[2023-07-17] MEDS: ISOSORBIDE MONO 30MG TAB.ER.24H 30 MG PO (08:03)
[2023-07-17] MEDS: VANCOMYCIN HCL 1,000 MG in 0.9 % SODIUM CHLORIDE 250 ML 125 MG IV (08:04)
[2023-07-17] MEDS: FLUTICASONE/SALMETEROL 250/50MCG DISKUS 1 PUFF IH ×2 (08:29→18:15)
--- NOTE | 2023-07-17 09:48 | EXP.PULM.PN ---
Subjective *Date: 07/17/23 *Time: 12:15 Interval history: No acute resp events overnight. Pulmonology Exam Inpatient Vital signs and Labs for Last 24 Hours: Temp Pulse Resp BP Pulse Ox O2 Del Method O2 Flow Rate 97.6 F 53 L 20 155/77 H 91 L Vapotherm 35 07/17/23 04:00 07/17/23 08:00 07/17/23 08:00 07/17/23 08:00 07/17/23 09:45 07/17/23 09:45 07/17/23 09:45 FiO2 80 07/17/23 09:45 Laboratory Results - last 24 hr 07/16/23 08:50: Total Counted 100, Neutrophils % (Manual) 16 L, Band Neutrophils % 1.0, Lymphocytes % (Manual) 81 H, Monocytes % (Manual) 2, Platelet Estimate Normal, Poikilocytosis 1+, Anisocytosis 1+, Microcytosis 1+, Macrocytosis Bean Weigher 07/16/23 08:53: SARS-CoV-2 (PCR) Not detected, Influenza A Untype (PCR) Not detected, Influenza Type B (PCR) Not detected 07/16/23 09:30: Lactate 0.6 L 07/16/23 12:18: Troponin I < 0.01 07/16/23 15:10: Troponin I < 0.01 07/17/23 06:05: WBC 37.6 H* D, RBC 3.90 L, Hgb 11.4 L, Hct 32.9 L, MCV 84.2, MCH 29.2, MCHC 34.7, RDW 16.2, Plt Count 186, MPV 8.2, Neut % (Auto) 16.2 L, Lymph % (Auto) 80.4 H, [place] % (Auto) 2.6, Eos % (Auto) 0.0 L, Baso % (Auto) 0.7, Neut # (Auto) 6.1, Lymph # (Auto) 30.3 H, [place] # (Auto) 1.0, Eos # (Auto) 0.0, Baso # (Auto) 0.3 H, Total Counted 100, Neutrophils % (Manual) 18 L, Lymphocytes % (Manual) 80 H, Monocytes % (Manual) 2, Platelet Estimate Normal, RBC Morphology Normal, Sodium 141, Potassium 3.1 L, Chloride 99, Carbon Dioxide 39 H, Anion Gap 6.1, BUN 14, Creatinine 0.70, Estimated Creat Clear 43, Estimated GFR 79, Est GFR ( Amer) 95, Glucose 107 H, Calcium 9.2, Magnesium 2.1, Total Bilirubin 0.6, AST 27, ALT 20, Alkaline Phosphatase 94, Total Protein 5.9 L, Albumin 3.6, Globulin 2.3, Albumin/Globulin Ratio 1.6 I & O for Labs for Last 24 Hours: Intake & Output 07/14/23 07/15/23 07/16/23 07/17/23 23:59 23:59 23:59 23:59 Intake Total 50 / 50 220 / 220 Output Total 1700 / 2100 400 / 400 Balance -1650 / -0 -180 / -180 Weight 160 lb 1 oz 158 lb 6.4 oz Constitutional: Present severe distress Head: Present normocephalic and atraumatic ENT: Present normal exam, normal oropharynx and mucous membranes moist Neck: Present normal inspection and full ROM Respiratory: Present respiratory distress, rhonchi, diminished air movement and able to speak in complete sentences; Absent wheezes Cardiac: Present S1/S2, Tachycardia and radial pulses present GI: Present soft and distention; Absent tenderness or guarding Rectal (female): Present deferred (female): Present deferred Skin: Present intact; Absent cyanosis or jaundice Neuro: Present alert and awake; Absent oriented x 3 Extremities: Present normal inspection; Absent clubbing or cyanosis Psychiatric: Present normal affect and cooperative Assessment and Plan *Assessment and plan (1) Sepsis due to pneumonia: Status: Acute Category: Medical Code(s): J18.9 - Pneumonia, unspecified organism; A41.9 - Sepsis, unspecified organism (2) Acute on chronic hypoxic respiratory failure: Status: Acute Category: Medical Code(s): J96.21 - Acute and chronic respiratory failure with hypoxia (3) Pleural effusion, bilateral: Status: Acute Category: Medical Code(s): J90 - Pleural effusion, not elsewhere classified Plan Ms. Juares is a 87-year-old female with reported history of heart failure with preserved ejection fraction, lymphoma, chronic hypoxic respiratory failure, dementia, splenomegaly, CAD and hypertension presented to the ER with worsening respiratory's needing high flow nasal oxygen supplementation pulmonary was called for further evaluation and management. CT upon admission bilateral pleural effusions right greater than left. Adjacent atelectasis noted. Bilateral upper lobe groundglass opacity and septal thickening noted. No other significant airspace disease noted. Lymphadenopathy noted. CTA and lower extremity venous Doppler no evidence of thrombosis Significant neutrophilic leukocytosis upon admission. VBG upon admission did not show any evidence of significant hypercarbic respiratory failure, pH is 7.38. On examination patient appeared to be in severe respiratory distress. On nasal cannula wheezing noted on auscultation bilateral decreased breath sounds. Interval update: Continued worsening leukocytosis now at 37.6. Continue to receive diuresis, net negative fluid status. Plan: Continue high flow nasal cannula O2 supplementation to maintain O2 saturation goal of 90 to 95%, weaned to 30 L 60% this morning. O2 plethysmography before increasing oxygen requirements. Ongoing family discussions regarding goals of care. Continue current antibiotics pending culture results. Will hold off on performing thoracentesis pending clinical improvement. Total critical care time spent on this patient is 35 minutes managing acute hypoxic respiratory failure needing HFNC ventilaiton. This time spent include reviewing test results including interpreting chest x-rays, labs and venous blood gas, optimizing the HFNC settings,formulating plan of care, discussing the plan of care with the team and the nursing staff.
--- NOTE | 2023-07-17 16:40 | PC.NURSE ---
pt c/o pain at left AC PIV site, removed that IV and started new 20G left forearm
[2023-07-17] MEDS: MONTELUKAST SODIUM 10MG TAB 10 MG PO (18:06)
[2023-07-17] MEDS: DONEPEZIL 5MG TAB 5 MG PO (20:12)
[2023-07-17] MEDS: GABAPENTIN 100MG CAPSULE 100 MG PO (20:13)
--- NOTE | 2023-07-17 21:04 | EXP.ACUTE.PN ---
Subjective *Date: 07/17/23 *Time: 21:04 Interval history: Feeling somewhat better today. Able to wean oxygen. Weaned to 30 L and 60%. Pleasant and interactive on exam. Family at bedside, goals of care discussion today. Denies any chest pain, nausea, vomiting. Reports shortness of breath improved. Hungry and wanting to eat. Afebrile. Medical Exam Vital signs and Labs for Last 24 Hours: Vital Signs Temp Pulse Pulse Resp BP Pulse Ox O2 Del Method 07/17/23 19:51 97 Nasal Cannula 07/17/23 18:17 Vapotherm 07/17/23 18:17 94 L Vapotherm 07/17/23 18:16 68 07/17/23 18:16 72 07/17/23 18:00 64 26 H 139/70 99 Vapotherm 07/17/23 16:00 97 Vapotherm 07/17/23 16:00 98.2 F 07/17/23 16:00 60 07/17/23 16:40 Vapotherm 07/17/23 16:00 59 L 24 153/63 H 93 L Vapotherm 07/17/23 12:00 60 07/17/23 15:00 Vapotherm 07/17/23 14:00 55 L 17 139/56 L 92 L Vapotherm 07/17/23 13:00 Vapotherm 07/17/23 12:00 60 22 135/66 92 L Vapotherm 07/17/23 10:00 52 L 18 121/57 L 91 L Vapotherm 07/17/23 12:53 87 07/17/23 12:53 78 07/17/23 11:00 Vapotherm 07/17/23 08:00 60 07/17/23 09:00 Vapotherm 07/17/23 09:45 55 L 07/17/23 09:45 54 L 07/17/23 09:45 91 L Vapotherm 07/17/23 08:30 97 Vapotherm 07/17/23 08:00 53 L 20 155/77 H 95 Vapotherm 07/17/23 06:56 Vapotherm 07/17/23 05:56 60 07/17/23 05:40 56 L 07/17/23 05:40 56 L 07/17/23 05:40 90 L Vapotherm 02/22/24 22:00 93 L Vapotherm 07/17/23 00:00 60 07/17/23 01:19 64 07/17/23 01:19 67 07/17/23 06:00 63 24 149/65 H 93 L Vapotherm 07/17/23 05:00 Vapotherm 07/17/23 04:00 Vapotherm 07/17/23 04:00 97.6 F 61 14 159/70 H Vapotherm 07/17/23 02:00 59 L 14 143/62 H 91 L Vapotherm 07/17/23 00:00 97.7 F 63 16 137/64 93 L Vapotherm 07/16/23 22:00 60 15 153/68 H 93 L Vapotherm 07/17/23 03:00 Vapotherm 07/17/23 01:00 Vapotherm 07/16/23 23:00 Vapotherm 07/16/23 21:17 67 07/16/23 21:17 70 O2 Flow Rate FiO2 07/17/23 19:51 3 07/17/23 18:17 30 07/17/23 18:17 30 40 07/17/23 18:16 07/17/23 18:16 07/17/23 18:00 30 60 07/17/23 16:00 30 60 07/17/23 16:00 07/17/23 16:00 07/17/23 16:40 30 07/17/23 16:00 30 60 07/17/23 12:00 07/17/23 15:00 30 07/17/23 14:00 30 60 07/17/23 13:00 30 07/17/23 12:00 30 60 07/17/23 10:00 30 60 07/17/23 12:53 07/17/23 12:53 07/17/23 11:00 30 07/17/23 08:00 07/17/23 09:00 30 07/17/23 09:45 07/17/23 09:45 07/17/23 09:45 35 80 07/17/23 08:30 35 80 07/17/23 08:00 30 80 07/17/23 06:56 07/17/23 05:56 07/17/23 05:40 07/17/23 05:40 07/17/23 05:40 35 80 07/16/23 22:00 35 80 02/23/24 00:00 07/17/23 01:19 07/17/23 01:19 07/17/23 06:00 35 80 07/17/23 05:00 07/17/23 04:00 35 80 07/17/23 04:00 35 80 07/17/23 02:00 35 80 07/17/23 00:00 35 80 07/16/23 22:00 35 80 07/17/23 03:00 07/17/23 01:00 07/16/23 23:00 07/16/23 21:17 07/16/23 21:17 Intake and Output 07/17/23 07/17/23 07/17/23 07:59 15:59 23:59 Intake Total 220 / 460 240 / 460 Output Total 400 / 1600 800 / 1600 400 / 1600 Balance -400 / -1140 -580 / -1140 -160 / -1140 Intake: Intake, Oral Amount 220 / 460 240 / 460 Output: Output, Urine Amount 400 / 1600 800 / 1600 400 / 1600 Other: Number of Voids 1 Number of Unmeasured Voids 0 Weight 71.849 kg 71.849 kg Patient Weight 07/17/23 23:59 Weight 71.849 kg Laboratory Results - last 24 hr 07/17/23 06:05: WBC 37.6 H* D, RBC 3.90 L, Hgb 11.4 L, Hct 32.9 L, MCV 84.2, MCH 29.2, MCHC 34.7, RDW 16.2, Plt Count 186, MPV 8.2, Neut % (Auto) 16.2 L, Lymph % (Auto) 80.4 H, Burt % (Auto) 2.6, Eos % (Auto) 0.0 L, Baso % (Auto) 0.7, Neut # (Auto) 6.1, Lymph # (Auto) 30.3 H, Burt # (Auto) 1.0, Eos # (Auto) 0.0, Baso # (Auto) 0.3 H, Total Counted 100, Neutrophils % (Manual) 18 L, Lymphocytes % (Manual) 80 H, Monocytes % (Manual) 2, Platelet Estimate Normal, RBC Morphology Normal, Sodium 141, Potassium 3.1 L, Chloride 99, Carbon Dioxide 39 H, Anion Gap 6.1, BUN 14, Creatinine 0.70, Estimated Creat Clear 43, Estimated GFR 79, Est GFR ( Amer) 95, Glucose 107 H, Calcium 9.2, Magnesium 2.1, Total Bilirubin 0.6, AST 27, ALT 20, Alkaline Phosphatase 94, Total Protein 5.9 L, Albumin 3.6, Globulin 2.3, Albumin/Globulin Ratio 1.6 I & O for Labs for Last 24 Hours: Intake & Output 07/14/23 07/15/23 07/16/23 07/17/23 23:59 23:59 23:59 23:59 Intake Total 50 / 50 460 / 460 Output Total 1700 / 2100 1600 / 1600 Balance -1650 / -2050 -1140 / -1140 Weight 72.603 kg 71.849 kg Constitutional: Present no acute distress, average body habitus and chronically ill appearing Head: Present atraumatic and normocephalic ENT: Present normal exam Neck: Present normal inspection Respiratory: Present crackles (bilateral bases) and normal respiratory effort; Absent accessory muscle use, rhonchi or wheezes Cardiac: Present Reg Rate and Rhythm GI: Present soft and normal bowel sounds; Absent distention or tenderness Extremities: Present normal inspection and full ROM; Absent edema Comment:: varicosities diffusely in BLE; chronic stasis changes in BLE Skin: Present intact; Absent erythema Neuro: Present Grossly Intact, alert, awake and moves all extremities Comment:: oriented to self and family Assessment and Plan *Assessment and plan (1) Acute and chronic respiratory failure with hypoxia: Status: Acute Category: Medical Code(s): J96.21 - Acute and chronic respiratory failure with hypoxia (2) Acute on chronic heart failure with preserved ejection fraction (HFpEF): Status: Acute Category: Medical Code(s): I50.33 - Acute on chronic diastolic (congestive) heart failure (3) Sepsis due to pneumonia: Status: Acute Category: Medical Code(s): J18.9 - Pneumonia, unspecified organism; A41.9 - Sepsis, unspecified organism (4) Acute on chronic hypoxic respiratory failure: Status: Acute Category: Medical Code(s): J96.21 - Acute and chronic respiratory failure with hypoxia (5) Pleural effusion, bilateral: Status: Acute Category: Medical Code(s): J90 - Pleural effusion, not elsewhere classified (6) Dementia: Status: Acute Qualifiers: Dementia type: unspecified type Dementia severity: moderate Category: Medical Code(s): F03.90 - Unspecified dementia, unspecified severity, without behavioral disturbance, psychotic disturbance, mood disturbance, and anxiety (7) Lymphoma: Status: Chronic Category: Medical Code(s): C85.90 - Non-Hodgkin lymphoma, unspecified, unspecified site (8) COPD (chronic obstructive pulmonary disease): Status: Chronic Category: Medical Code(s): J44.9 - Chronic obstructive pulmonary disease, unspecified (9) Coronary artery disease: Status: Acute Qualifiers: Coronary Disease-Associated Artery/Lesion type: [place] artery [place] vs. transplanted heart: [place] heart Associated angina: without angina Qualified Code(s): I25.10 - Atherosclerotic heart disease of [place] coronary artery without angina pectoris Category: Medical Code(s): I25.10 - Atherosclerotic heart disease of [place] coronary artery without angina pectoris Plan This is an 87-year-old female that presents to [facility] emergency department with concerns of shortness of air and found to have increased pulmonary congestion, elevated BNP, acute on chronic hypoxemic respiratory failure with pleural effusions and concern for pneumonia. Meeting sepsis criteria with leukocytosis, tachypnea, concern for pneumonia on chest imaging. Discussed case with ER physician, request admission for increased oxygen requirement, antibiotic needs, high risk for decompensation. Patient showing slow improvement to treatment. Weaning oxygen. Pulmonology consulted, appreciate their recommendations and assistance in care. Goals of care discussion with family today, patient made DNR. Continues to require inpatient management. Problems addressed as follows: Acute on chronic respiratory failure with hypoxia Sepsis with pneumonia Acute on chronic HFpEF COPD Pulmonology consulted, discussed case today, recommends continuing high flow nasal cannula. Goal 90 to 95%. Currently on 30 L, 60%. Wean as tolerated Continue current antibiotic regimen with Zosyn every 6 hours IV and vancomycin IV. Monitoring for toxicity. Cultures pending. Holding on thoracentesis pending clinical improvement. Continue DuoNebs every 4 hours Continue Lasix 40 mg IV twice daily. Goal -1 L in the next 24 hours. -2 L in the past 24 hours. Continue home carvedilol 6.25 mg twice daily, Plavix 75 mg daily, isosorbide 30 mg daily, amlodipine, holding lisinopril. Continue home aspirin 81mg daily, continue pravastatin 40 mg nightly Leukocytosis Lymphoma Previous known history of lymphoma. Follows with [facility], Dr. Lunsford in oncology WBC elevated 37,000 today, Monitor for improvement with antibiotics. repeat CBC and CMP ordered for the morning. Dementia Routine nursing interaction Continue donepezil 5 mg nightly Continue Zoloft 50 mg daily Fall precautions Aspiration precautions DNR Regular diet Heparin 5k units TID
--- NOTE | 2023-07-17 21:17 | EXP.EVENT.NO ---
Advance care planning note: Active diagnosis: Dementia, lymphoma, acute on chronic heart failure, acute on chronic hypoxemic respiratory failure, pleural effusions, pneumonia. The patient's active diagnoses are of sufficient risk that focused discussion on advanced care planning is indicated in order to allow the patient to thoughtfully consider personal goals of care; and, if situations arise that prevent the ability to personally give input, to ensure appropriate representation of their personal desires through documentation or informed surrogate decision makers. Discussion: Persons present and participating in discussion: Patient, daughter, son-in-law, granddaughter and 2 grandsons. Discussion: Extensive discussion about patient's current condition with her acute exacerbations of both heart failure and respiratory failure. In light of her underlying comorbidities, lymphoma, advanced age, dementia, discussed goals with CODE STATUS and long-term. Family is very clear that the patient is active and was important to her is being active and having good quality in life. They want to focus on quality and comfort. They would like to address the acute issues and treat her aggressively to get her better and return to her baseline level of function if possible. I also however state that they would not want to resuscitate her if she were to pass away because they would not want her on life support or ventilator. Patient made DNR. Discussed the concept of hospice if condition worsens at home. Family interested in this. States they have information for hospice at home based on previous experience with home health who also does hospice. Time spent: Total time spent [id number] in education and discussion directly related to advance care plannin minutes, 12 PM to 12:25 PM.
[2023-07-17] MEDS: ACETAMINOPHEN 325MG TAB 650 MG PO (21:19)
[2023-07-18] VITALS (22 sets, daily range): BP systolic 85–168; BP diastolic 46–90; PULSE 52–87; RESP 12–25; TEMP 36.4–36.9; O2SAT 92–99; BMI 28.0
[2023-07-18] MEDS: IPRATROPIUM/ALBUTEROL 3 ML NEB IH ×6 (01:01→22:06)
[2023-07-18] MEDS: PIPERCILLIN/TAZO 3.375 GM in 0.9 % SODIUM CHLORIDE 50 ML IV ×4 (05:24→22:30)
[2023-07-18] MEDS: FLUTICASONE/SALMETEROL 250/50MCG DISKUS 1 PUFF IH ×2 (06:10→22:06)
[2023-07-18 08:01] LABS: Chloride 97 mmol/L (98-107)
[2023-07-18 08:02] LABS: Potassium 3.3 mmoL/L (3.5-5.1); Sodium 139 mmol/L (136-145)
[2023-07-18 08:04] LABS: Alanine Aminotransferase 18 U/L (12-78); Alkaline Phosphatase 97 U/L (38-126); Aspartate Amino Transferase 30 U/L (14-36); Basophils # 0.4 K/mm3 (0-0.2); Basophils % 1.2 % (0.1-2.0); Bilirubin,Total 0.7 mg/dl (0.2-1.3); Blood Urea Nitrogen 17 mg/dl (7-17); Creatinine Clearance Estimated 42 mL/min (50-200); Eosinophils # 0.1 K/mm3 (0.0-0.4); Eosinophils % 0.2 % (0.1-12.0); Estimated Glomerular Filt Rate 59 ml/min (>60); GFR (African American) 71 ML/MIN (>60); Hematocrit 40.9 % (37.0-47.0); Hemoglobin 12.3 g/dL (12.2-16.2); Lymphocytes # 23.7 K/mm3 (0.7-4.5); Lymphocytes % 80.9 % (10-50); Mean Corpuscular HGB Conc 30.1 g/dL (31.8-35.4); Mean Corpuscular Hemoglobin 25.1 pg (27.0-31.2); Mean Corpuscular Volume 83.4 fl (81-99); Mean Platelet Volume 8.3 fl (7.4-10.4); Monocytes # 0.7 K/mm3 (0.1-1.0); Monocytes % 2.5 % (1.7-9.3); Neutrophils # 4.5 K/mm3 (1.8-7.8); Neutrophils % 15.2 % (37.0-80.0); Platelet Count 193 K/mm3 (142-424); White Blood Count 29.3 K/mm3 (4.8-10.8)
[2023-07-18 08:05] LABS: Albumin Level 3.8 g/dl (3.5-5.0); Albumin/Globulin Ratio 1.5 (1.1-1.8); Calcium 9.6 mg/dl (8.4-10.2); Globulin 2.5 g/dL (1.3-3.2); Glucose 94 mg/dl (74-100); Magnesium 2.3 mg/dl (1.6-2.3); Total Protein,Serum 6.3 g/dl (6.3-8.2)
--- NOTE | 2023-07-18 08:09 | EXP.ACUTE.PN ---
Subjective *Date: 07/18/23 *Time: 13:53 Interval history: Patient overall doing very well. Weaning oxygen, on 3 L nasal cannula during morning rounds. Afebrile. Feels a little weak today. Nursing encouraging her to get up to the bedside chair. Tolerating p.o. intake. No nausea or vomiting. Medical Exam Vital signs and Labs for Last 24 Hours: Vital Signs Temp Pulse Pulse Resp BP Pulse Ox O2 Del Method 07/18/23 06:00 53 L 15 168/78 H Nasal Cannula 07/18/23 06:00 60 07/18/23 06:11 61 07/18/23 06:11 55 L 07/18/23 06:11 92 L Nasal Cannula 07/17/23 20:00 65 07/17/23 20:00 60 07/18/23 06:55 Nasal Cannula 07/18/23 05:00 Nasal Cannula 07/18/23 04:00 98 F 60 14 138/66 Nasal Cannula 07/18/23 04:00 Nasal Cannula 07/18/23 02:00 52 L 12 152/60 H 94 L Nasal Cannula 07/18/23 03:00 Nasal Cannula 07/18/23 01:00 Nasal Cannula 07/18/23 01:01 71 07/18/23 01:01 74 07/17/23 21:22 66 07/17/23 21:22 70 07/17/23 23:00 Nasal Cannula 07/18/23 00:00 98.5 F 57 L 22 151/64 H 92 L Nasal Cannula 07/17/23 22:00 56 L 17 139/60 92 L Nasal Cannula 07/17/23 21:00 Nasal Cannula 07/17/23 20:00 98.1 F 63 26 H 125/61 95 Nasal Cannula 07/17/23 20:00 Nasal Cannula 07/17/23 19:51 97 Nasal Cannula 07/17/23 18:17 Vapotherm 07/17/23 18:17 94 L Vapotherm 07/17/23 18:16 68 07/17/23 18:16 72 07/17/23 18:00 64 26 H 139/70 99 Vapotherm 07/17/23 16:00 97 Vapotherm 07/17/23 16:00 98.2 F 07/17/23 16:00 60 07/17/23 16:40 Vapotherm 07/17/23 16:00 59 L 24 153/63 H 93 L Vapotherm 07/17/23 12:00 60 07/17/23 15:00 Vapotherm 07/17/23 14:00 55 L 17 139/56 L 92 L Vapotherm 07/17/23 13:00 Vapotherm 07/17/23 12:00 60 22 135/66 92 L Vapotherm 07/17/23 10:00 52 L 18 121/57 L 91 L Vapotherm 07/17/23 12:53 87 07/17/23 12:53 78 07/17/23 11:00 Vapotherm 07/17/23 09:00 Vapotherm 07/17/23 09:45 55 L 07/17/23 09:45 54 L 07/17/23 09:45 91 L Vapotherm 07/17/23 08:30 97 Vapotherm O2 Flow Rate FiO2 07/18/23 06:00 3 07/18/23 06:00 07/18/23 06:11 07/18/23 06:11 07/18/23 06:11 3 07/17/23 20:00 07/17/23 20:00 07/18/23 06:55 5 07/18/23 05:00 3 07/18/23 04:00 3 07/18/23 04:00 3 07/18/23 02:00 3 07/18/23 03:00 3 07/18/23 01:00 3 07/18/23 01:01 07/18/23 01:01 07/17/23 21:22 07/17/23 21:22 07/17/23 23:00 07/18/23 00:00 3 07/17/23 22:00 3 07/17/23 21:00 07/17/23 20:00 3 07/17/23 20:00 3 07/17/23 19:51 3 07/17/23 18:17 30 07/17/23 18:17 30 40 07/17/23 18:16 07/17/23 18:16 07/17/23 18:00 30 60 07/17/23 16:00 30 60 07/17/23 16:00 07/17/23 16:00 07/17/23 16:40 30 07/17/23 16:00 30 60 07/17/23 12:00 07/17/23 15:00 30 07/17/23 14:00 30 60 07/17/23 13:00 30 07/17/23 12:00 30 60 07/17/23 10:00 30 60 07/17/23 12:53 07/17/23 12:53 07/17/23 11:00 30 07/17/23 09:00 30 07/17/23 09:45 07/17/23 09:45 07/17/23 09:45 35 80 07/17/23 08:30 35 80 Intake and Output 07/17/23 07/18/23 07/18/23 23:59 07:59 15:59 Intake Total 240 / 460 Output Total 400 / 2200 600 / 600 Balance -160 / -1740 -600 / -600 Intake: Intake, Oral Amount 240 / 460 Output: Output, Urine Amount 400 / 2200 600 / 600 Other: Number of Bowel Movements 1 Weight 69.201 kg Patient Weight 07/18/23 23:59 Weight 69.201 kg Laboratory Results - last 24 hr 07/18/23 07:29: Sodium 139, Potassium 3.3 L, Chloride 97 L I & O for Labs for Last 24 Hours: Intake & Output 07/15/23 07/16/23 07/17/23 07/18/23 23:59 23:59 23:59 23:59 Intake Total 50 / 50 460 / 460 Output Total 1700 / 2100 1600 / 2200 600 / 600 Balance -1650 / -2050 -1140 / -1740 -600 / -600 Weight 72.603 kg 71.849 kg 69.201 kg Constitutional: Present no acute distress, average body habitus and chronically ill appearing Head: Present atraumatic and normocephalic ENT: Present normal exam Neck: Present normal inspection Respiratory: Present crackles (bilateral bases, interval improvement.) and normal respiratory effort; Absent accessory muscle use, rhonchi or wheezes Cardiac: Present Reg Rate and Rhythm GI: Present soft and normal bowel sounds; Absent distention or tenderness Extremities: Present normal inspection and full ROM; Absent edema Comment:: varicosities diffusely in BLE; chronic stasis changes in BLE Skin: Present intact; Absent erythema Neuro: Present Grossly Intact, alert, awake and moves all extremities Comment:: oriented to self and family Assessment and Plan *Assessment and plan (1) Acute and chronic respiratory failure with hypoxia: Status: Acute Category: Medical Code(s): J96.21 - Acute and chronic respiratory failure with hypoxia (2) Acute on chronic heart failure with preserved ejection fraction (HFpEF): Status: Acute Category: Medical Code(s): I50.33 - Acute on chronic diastolic (congestive) heart failure (3) Sepsis due to pneumonia: Status: Acute Category: Medical Code(s): J18.9 - Pneumonia, unspecified organism; A41.9 - Sepsis, unspecified organism (4) Acute on chronic hypoxic respiratory failure: Status: Acute Category: Medical Code(s): J96.21 - Acute and chronic respiratory failure with hypoxia (5) Pleural effusion, bilateral: Status: Acute Category: Medical Code(s): J90 - Pleural effusion, not elsewhere classified (6) Dementia: Status: Acute Qualifiers: Dementia severity: moderate Dementia type: unspecified type Category: Medical Code(s): F03.90 - Unspecified dementia, unspecified severity, without behavioral disturbance, psychotic disturbance, mood disturbance, and anxiety (7) Lymphoma: Status: Chronic Category: Medical Code(s): C85.90 - Non-Hodgkin lymphoma, unspecified, unspecified site (8) COPD (chronic obstructive pulmonary disease): Status: Chronic Category: Medical Code(s): J44.9 - Chronic obstructive pulmonary disease, unspecified (9) Coronary artery disease: Status: Acute Qualifiers: Associated angina: without angina Coronary Disease-Associated Artery/Lesion type: [place] artery [place] vs. transplanted heart: [place] heart Qualified Code(s): I25.10 - Atherosclerotic heart disease of [place] coronary artery without angina pectoris Category: Medical Code(s): I25.10 - Atherosclerotic heart disease of [place] coronary artery without angina pectoris Plan This is an 87-year-old female that presents to [facility] emergency department with concerns of shortness of air and found to have increased pulmonary congestion, elevated BNP, acute on chronic hypoxemic respiratory failure with pleural effusions and concern for pneumonia. Meeting sepsis criteria with leukocytosis, tachypnea, concern for pneumonia on chest imaging. Discussed case with ER physician, request admission for increased oxygen requirement, antibiotic needs, high risk for decompensation. Patient showing continued improvement. Weaned to nasal cannula overnight. Anticipate discharge in the next day or 2. Problems addressed as follows: Acute on chronic respiratory failure with hypoxia Sepsis with pneumonia Acute on chronic HFpEF COPD Pulmonology consulted, appreciate their assistance in care. Able to wean in the past 12 hours to nasal cannula oxygen. Currently on 3 L. Goal sats 90 to 95%. Continue current antibiotic regimen with Zosyn every 6 hours IV and vancomycin IV. Monitoring for toxicity. Cultures pending. Holding on thoracentesis pending clinical improvement. Continue DuoNebs every 4 hours Continue Lasix 40 mg IV twice daily. -1.5 liters in the past 24 hours. Down 3-1/2 L since admission. Continue home carvedilol 6.25 mg twice daily, Plavix 75 mg daily, isosorbide 30 mg daily, amlodipine, holding lisinopril. Continue home aspirin 81mg daily, continue pravastatin 40 mg nightly Leukocytosis Lymphoma Previous known history of lymphoma. Follows with [facility], Dr. Lunsford in oncology White cell count 29.3, Monitor for improvement with antibiotics. repeat CBC and CMP ordered for the morning. Dementia Routine nursing interaction Continue donepezil 5 mg nightly Continue Zoloft 50 mg daily Fall precautions Aspiration precautions DNR Regular diet Heparin 5k units TID
[2023-07-18 08:13] LABS: Anion Gap 6.3 mEq/L (5-15); Carbon Dioxide 39 mmol/L (22.0-30.0)
[2023-07-18 08:36] LABS: MANUAL DIFFERENTIAL MANUAL DIFFERENTIAL (MANUAL DIFF)
[2023-07-18 08:40] LABS: Vancomycin,Trough 7.4 ug/mL (5.0-10.0)
--- NOTE | 2023-07-18 08:58 | PC.NURSE ---
notified Rx Fortunato of pt's vanc trough result of 7.4, Rx to order new amount for am dose
[2023-07-18] MEDS: VANCOMYCIN/WATER FOR INJ (PEG) 1.25 GM/250 ML PIGGYBACK IV (09:29)
[2023-07-18] MEDS: ACETAMINOPHEN 325MG TAB 650 MG PO ×2 (09:29→14:33)
[2023-07-18] MEDS: ISOSORBIDE MONO 30MG TAB.ER.24H 30 MG PO (09:29)
[2023-07-18] MEDS: FUROSEMIDE 40MG/4ML VIAL 40 MG IV (09:29)
[2023-07-18] MEDS: AMLODIPINE 5MG TABLET 5 MG PO (09:30)
[2023-07-18] MEDS: HEPARIN SODIUM 5,000 UNIT/ML VIAL 5000 UNIT SQ ×3 (09:30→20:37)
[2023-07-18] MEDS: POTASSIUM CHLORIDE 20MEQ TAB 20 MEQ PO ×3 (09:30→20:37)
[2023-07-18 09:57] LABS: Lymphocytes % 83 % (10-50); Monocytes % 2 % (2-9); Neutrophils % 15 % (42-76); Total Cells Counted 100
[2023-07-18 09:58] LABS: Hypochromasia 1+; Platelet Estimate Normal
[2023-07-18 14:19] LABS: Vancomycin,Peak 26.6 ug/ml (11-39)
--- NOTE | 2023-07-18 14:24 | HMH.PTEV ---
Physical Therapy Evaluation Rehab PT IP Evaluation Start: 07/18/23 10:04 Freq: ONCE Status: Active Protocol: Document 07/18/23 14:18 PRO (Rec: 07/18/23 14:24 PRO [id number]) Subjective/History History History Ms. Lao is an 87-year-old female with history of HFpEF, lymphoma, chronic hypoxemic respiratory failure, dementia, splenomegaly, CAD, hypertension who presented to the ER via EMS because of increased shortness of breath. She reports symptoms began with increased shortness of breath. Denies slade fever but has had a cough, subjective fevers. No vomiting or diarrhea. Sats are in the 60s at home on 4 L. Improved to the 80s with transitioning to oxygen from EMS source. Having significant wheeze. Treated with a nebulizer treatment and transferred to the ER for further management. On arrival to the ER, still hypoxic. Patient was initiated on Vapotherm. Workup performed showing elevated white count of 28,000 , chest imaging with moderate effusions bilaterally. Patient feeling more weak than usual. Medicine consulted for admission and treatment of pneumonia and acute on chronic hypoxemic respiratory failure. PSI/port 128. Sats stayed consistent today at low 90's/upper 80's with bed mobility/ambulation/transfer to chair. Subjective Subjective I'm feeling better. New diagnosis of cancer in past 12 No months? Rehab PT IP Eval Objective Appearance Patient Behavior Appropriate,Cooperative Patient Orientation Person,Place,Birthday Difficulty following instructions none Speech Pattern Appropriate,Mumbled Ambulation Patient Able to Ambulate Yes Ambulation Observation IP General Gait Pattern Observation Wide Based Gait Ambulation Distance (feet) 10 Ambulation Assistive Device None Ambulation Ability Contact Guard/Hand Hold Balance Ability to Arise Able, uses arms to help Sitting Balance Steady, safe Standing Balance Narrow stance w/o support Dynamic Sitting Balance Ability Normal Dynamic Standing Balance Ability Normal Transfers Bed Transfer Ability Independent Sit to Stand Bed Transfer Ability Contact Guard/Hand Hold ROM All Extremities PT ROM Status WFL MMT All Extremities PT MMT WFL Rehab PT IP prob,goals,plan Problems Date of Evaluation: 07/18/23 Rehab Potential Rehab Potential Good Discharge Plan PT Discharge Plan At this time, PT suggests that patient is a good candidate to DC back to home with home health PT in order to continue rehab, once found medically stable by MD. Eval Complexity Eval Charge Codes 92781 - High Complexity PHYSICIAN CERTIFICATION: I certify the specified therapy services for Nneka Juares are required, authorized, and reviewed every 30 days.
[2023-07-18] MEDS: MONTELUKAST SODIUM 10MG TAB 10 MG PO (17:11)
[2023-07-18] MEDS: FUROSEMIDE 40 MG TABLET PO (17:11)
[2023-07-18] MEDS: GABAPENTIN 100MG CAPSULE 100 MG PO (20:37)
[2023-07-18] MEDS: DONEPEZIL 5MG TAB 5 MG PO (20:37)
[2023-07-19] VITALS (8 sets, daily range): BP systolic 119–159; BP diastolic 58–71; PULSE 60–77; RESP 18–22; TEMP 36.5–37; O2SAT 87–96; BMI 27.2
[2023-07-19] MEDS: IPRATROPIUM/ALBUTEROL 3 ML NEB IH ×3 (01:41→10:14)
--- NOTE | 2023-07-19 03:50 | PC.NURSE ---
Pt is alert and oriented x4 and currently on 1L of O2 and sating at 95%. Iv in left forearm was infiltrated when assessed and new IV placed in the right forearm, pt tolerated well. Pt has no complaints and is extremely pleasant to all staff. Pt took medications crushed with applesauce and nectar thick apple juice. Pt denies pain and all other needs at this time
[2023-07-19] MEDS: PIPERCILLIN/TAZO 3.375 GM in 0.9 % SODIUM CHLORIDE 50 ML IV ×2 (04:07→10:50)
--- NOTE | 2023-07-19 05:46 | PC.NURSE ---
unable to obtain sputum culture pt unable to produce specimen
[2023-07-19] MEDS: FLUTICASONE/SALMETEROL 250/50MCG DISKUS 1 PUFF IH (06:16)
--- NOTE | 2023-07-19 07:23 | EXP.DC.SUM ---
General Admission date:: 07/16/23 Discharge date: 07/19/23 HPI HPI HPI: Ms. Juares is an 87-year-old female with history of HFpEF, lymphoma, chronic hypoxemic respiratory failure, dementia, splenomegaly, CAD, hypertension who presented to the ER via EMS because of increased shortness of breath. She reports symptoms began last night with increased shortness of breath. Denies slade fever but has had a cough, subjective fevers. No slade vomiting or diarrhea. Sats are in the 60s at home on 4 L. Improved to the 80s with transitioning to oxygen from EMS source. Having significant wheeze. Treated with a nebulizer treatment and transferred to the ER for further management. On arrival to the ER, still hypoxic. Patient was initiated on Vapotherm. Workup performed showing elevated white count of 28,000, chest imaging with moderate effusions bilaterally. Patient feeling more weak than usual. Medicine consulted for admission and treatment of pneumonia and acute on chronic hypoxemic respiratory failure. PSI/port 128. In the ER, started on empiric antibiotics with Zosyn and vancomycin. Sats in the low 90s on Vapotherm 35L 100%. No family at bedside by the time of my evaluation. Pleasant and at baseline mentation. Oriented to self only. Know she is at a hospital but thinks she is in [place]. Poor historian. Denies syncope, chest pain. Hospital Course Hospital Course Hospital Course: This is an 87-year-old female that presents to [facility] emergency department with concerns of shortness of air and found to have increased pulmonary congestion, elevated BNP, acute on chronic hypoxemic respiratory failure with pleural effusions and concern for pneumonia. Meeting sepsis criteria with leukocytosis, tachypnea, concern for pneumonia on chest imaging. Discussed case with ER physician, request admission for increased oxygen requirement, antibiotic needs, high risk for decompensation. She is shown impressive response to diuresis. Able to wean from Vapotherm to nasal cannula oxygen. Has been stable on less than 4 L nasal cannula oxygen for over 48 hours. Meeting criteria for discharge home. Problems addressed as follows: Acute on chronic respiratory failure with hypoxia Sepsis with pneumonia Acute on chronic HFpEF COPD Admitted for respiratory failure and necessitating Vapotherm. Pulmonology was consulted to assist with care. Was gradually weaned off of Vapotherm over the first 36 hours to nasal cannula oxygen. Rapidly weaned to 2 to 3 L. Baseline wears 4 L at home. Room air saturation on day of discharge was 87%. Recommend continuing 2 L nasal cannula at home, 3 L if short of breath or active. Treated with vancomycin and Zosyn during admission. Given her brisk response with diuresis, improvement in chest imaging, suspect majority of respiratory failure was due to heart failure and volume overload versus pneumonia. Will complete 5-day course of antibiotics with transition to Augmentin. Blood cultures negative at time of discharge. Recommend continuing breathing treatments at home. Continue Lasix 40 mg orally twice daily for 1 more week, decrease to once daily thereafter. Will continue potassium supplementation as well due to low potassium of 3.1 on day of discharge. Continue remainder of home medications including carvedilol, Plavix, isosorbide, amlodipine. Stable for discharge home. Recommend further goals of care discussion and consideration of hospice if continues to develop respiratory failure in light of her dementia and lymphoma. -Pulmonology follow-up in 1 to 2 weeks. Leukocytosis Lymphoma Previous known history of lymphoma. Follows with [facility], Dr. Lunsford in oncology. White cell count improved to 30,000 on day of discharge. Recommend repeat labs of CBC, CMP, magnesium in 1 to 2 weeks. Dementia: Pleasantly demented during hospitalization. No signs of delirium. Continue home donepezil and Zoloft. Spent 30 minutes in discharge counseling, documentation, discussion with subspecialist, chart review, and direct care with patient. Exam Data for Last 24 hours Vital signs and Labs for Last 24 Hours: Temp Pulse Resp BP Pulse Ox O2 Del Method O2 Flow Rate 98.5 F 69 20 159/67 H 95 Nasal Cannula 3 07/19/23 04:00 07/19/23 06:16 07/19/23 04:00 07/19/23 04:00 07/19/23 06:16 07/19/23 06:16 07/19/23 06:16 FiO2 40 07/17/23 18:17 Laboratory Results - last 24 hr 07/18/23 07:29: WBC 29.3 H*, RBC 4.90 D, Hgb 12.3, Hct 40.9, MCV 83.4, MCH 25.1 L, MCHC 30.1 L, RDW 16.0, Plt Count 193, MPV 8.3, Neut % (Auto) 15.2 L, Lymph % (Auto) 80.9 H, [place] % (Auto) 2.5, Eos % (Auto) 0.2, Baso % (Auto) 1.2, Neut # (Auto) 4.5, Lymph # (Auto) 23.7 H, [place] # (Auto) 0.7, Eos # (Auto) 0.1, Baso # (Auto) 0.4 H, Total Counted 100, Neutrophils % (Manual) 15 L, Lymphocytes % (Manual) 83 H, Monocytes % (Manual) 2, Platelet Estimate Normal, Hypochromasia 1+, Sodium Cancelled 07/18/23 07:29: Sodium 139, Potassium Cancelled 07/18/23 07:29: Potassium 3.3 L, Chloride Cancelled 07/18/23 07:29: Chloride 97 L, Carbon Dioxide Cancelled 07/18/23 07:29: Carbon Dioxide 39 H, Anion Gap Cancelled 07/18/23 07:29: Anion Gap 6.3, BUN Cancelled 07/18/23 07:29: BUN 17, Creatinine Cancelled 07/18/23 07:29: Creatinine 0.90 D, Estimated Creat Clear Cancelled 07/18/23 07:29: Estimated Creat Clear 42, Estimated GFR Cancelled 07/18/23 07:29: Estimated GFR 59, Est GFR ( Amer) Cancelled 07/18/23 07:29: Est GFR ( Amer) 71 D, Glucose Cancelled 07/18/23 07:29: Glucose 94, Calcium Cancelled 07/18/23 07:29: Calcium 9.6, Magnesium 2.3, Total Bilirubin 0.7, AST 30, ALT 18, Alkaline Phosphatase 97, Total Protein 6.3, Albumin 3.8, Globulin 2.5, Albumin/Globulin Ratio 1.5, Vancomycin Trough 7.4 07/18/23 13:35: Vancomycin Peak 26.6 I & O for Last 24 hours: Intake & Output 07/16/23 07/17/23 07/18/23 07/19/23 23:59 23:59 23:59 23:59 Intake Total 50 / 50 460 / 460 990 / 1350 360 / 360 Output Total 1700 / 2100 1600 / 2200 600 / 600 0 / 0 Balance -1650 / -2050 -1140 / -1740 390 / 750 360 / 360 Weight 72.603 kg 71.849 kg 69.201 kg 67.188 kg Microbiology Reports for the Last 24 Hours: Microbiology 07/16/23 09:30 Blood Blood Culture - Preliminary 07/16/23 10:09 Blood Blood Culture - Preliminary Constitutional Constitutional: no acute distress, chronically ill appearing and cooperative *Routine HEENT Exam Head: Present normocephalic Eye: Present EOMI and PERRL ENT: Present mucous membranes moist *Routine Neck Exam Neck: Present supple; Absent lymphadenopathy *Routine Respiratory Exam Respiratory: Present prolonged expiratory phase, crackles (minimal in bases) and normal respiratory effort; Absent rhonchi or wheezes *Routine Cardiovascular Exam Cardiovascular: Present RRR *Routine Abdominal Exam Abdominal: Present soft and normoactive bowel sounds; Absent tenderness *Routine Rectal Exam Patient deferred: visual exam *Routine Exam Patient deferred: external exam *Routine Extremities Exam Extremities: Absent cyanosis, clubbing or edema *Routine Skin Exam Skin: Present warm; Absent rash Comments: Varicose veins and lower extremity *Routine Neurological Exam Neurological: Present alert, CN II-XII intact and moving all extremities; Absent altered mental status Comments: Pleasant, oriented to self. Results Data Completed and Pending Labs on day of discharge: Labs from last 24 hours 07/18/23 07/18/23 07/18/23 13:35 07:29 07:29 WBC RBC Hgb Hct MCV MCH MCHC RDW Plt Count MPV Neut % (Auto) Lymph % (Auto) [place] % (Auto) Eos % (Auto) Baso % (Auto) Neut # (Auto) Lymph # (Auto) [place] # (Auto) Eos # (Auto) Baso # (Auto) Total Counted Neutrophils % (Manual) Lymphocytes % (Manual) Monocytes % (Manual) Platelet Estimate Hypochromasia Sodium Potassium Chloride Carbon Dioxide Anion Gap BUN Creatinine Estimated Creat Clear Estimated GFR Est GFR ( Amer) Glucose 94 Calcium 9.6 Cancelled Magnesium 2.3 Total Bilirubin 0.7 AST 30 ALT 18 Alkaline Phosphatase 97 Total Protein 6.3 Albumin 3.8 Globulin 2.5 Albumin/Globulin Ratio 1.5 Vancomycin Peak 26.6 Vancomycin Trough 7.4 07/18/23 07/18/23 07/18/23 07:29 07:29 07:29 WBC RBC Hgb Hct MCV MCH MCHC RDW Plt Count MPV Neut % (Auto) Lymph % (Auto) [place] % (Auto) Eos % (Auto) Baso % (Auto) Neut # (Auto) Lymph # (Auto) [place] # (Auto) Eos # (Auto) Baso # (Auto) Total Counted Neutrophils % (Manual) Lymphocytes % (Manual) Monocytes % (Manual) Platelet Estimate Hypochromasia Sodium Potassium Chloride Carbon Dioxide Anion Gap BUN Creatinine Estimated Creat Clear 42 Estimated GFR 59 Cancelled Est GFR ( Amer) 71 D Cancelled Glucose Cancelled Calcium Magnesium Total Bilirubin AST ALT Alkaline Phosphatase Total Protein Albumin Globulin Albumin/Globulin Ratio Vancomycin Peak Vancomycin Trough 07/18/23 07/18/23 07/18/23 07:29 07:29 07:29 WBC RBC Hgb Hct MCV MCH MCHC RDW Plt Count MPV Neut % (Auto) Lymph % (Auto) [place] % (Auto) Eos % (Auto) Baso % (Auto) Neut # (Auto) Lymph # (Auto) [place] # (Auto) Eos # (Auto) Baso # (Auto) Total Counted Neutrophils % (Manual) Lymphocytes % (Manual) Monocytes % (Manual) Platelet Estimate Hypochromasia Sodium Potassium Chloride Carbon Dioxide Anion Gap 6.3 BUN 17 Cancelled Creatinine 0.90 D Cancelled Estimated Creat Clear Cancelled Estimated GFR Est GFR ( Amer) Glucose Calcium Magnesium Total Bilirubin AST ALT Alkaline Phosphatase Total Protein Albumin Globulin Albumin/Globulin Ratio Vancomycin Peak Vancomycin Trough 07/18/23 07/18/23 07/18/23 07:29 07:29 07:29 WBC RBC Hgb Hct MCV MCH MCHC RDW Plt Count MPV Neut % (Auto) Lymph % (Auto) [place] % (Auto) Eos % (Auto) Baso % (Auto) Neut # (Auto) Lymph # (Auto) [place] # (Auto) Eos # (Auto) Baso # (Auto) Total Counted Neutrophils % (Manual) Lymphocytes % (Manual) Monocytes % (Manual) Platelet Estimate Hypochromasia Sodium Potassium 3.3 L Chloride 97 L Cancelled Carbon Dioxide 39 H Cancelled Anion Gap Cancelled BUN Creatinine Estimated Creat Clear Estimated GFR Est GFR ( Amer) Glucose Calcium Magnesium Total Bilirubin AST ALT Alkaline Phosphatase Total Protein Albumin Globulin Albumin/Globulin Ratio Vancomycin Peak Vancomycin Trough 07/18/23 07/18/23 07:29 07:29 WBC 29.3 H* RBC 4.90 D Hgb 12.3 Hct 40.9 MCV 83.4 MCH 25.1 L MCHC 30.1 L RDW 16.0 Plt Count 193 MPV 8.3 Neut % (Auto) 15.2 L Lymph % (Auto) 80.9 H [place] % (Auto) 2.5 Eos % (Auto) 0.2 Baso % (Auto) 1.2 Neut # (Auto) 4.5 Lymph # (Auto) 23.7 H [place] # (Auto) 0.7 Eos # (Auto) 0.1 Baso # (Auto) 0.4 H Total Counted 100 Neutrophils % (Manual) 15 L Lymphocytes % (Manual) 83 H Monocytes % (Manual) 2 Platelet Estimate Normal Hypochromasia 1+ Sodium 139 Cancelled Potassium Cancelled Chloride Carbon Dioxide Anion Gap BUN Creatinine Estimated Creat Clear Estimated GFR Est GFR ( Amer) Glucose Calcium Magnesium Total Bilirubin AST ALT Alkaline Phosphatase Total Protein Albumin Globulin Albumin/Globulin Ratio Vancomycin Peak Vancomycin Trough Preliminary micro results at discharge 07/16/23 09:30 Blood Culture - Preliminary Blood 07/16/23 10:09 Blood Culture - Preliminary Blood DS: Diagnosis Discharge Diagnosis (1) Acute and chronic respiratory failure with hypoxia: Status: Acute Code(s): J96.21 - Acute and chronic respiratory failure with hypoxia (2) Acute on chronic heart failure with preserved ejection fraction (HFpEF): Status: Acute Code(s): I50.33 - Acute on chronic diastolic (congestive) heart failure (3) Sepsis due to pneumonia: Status: Acute Code(s): J18.9 - Pneumonia, unspecified organism; A41.9 - Sepsis, unspecified organism (4) Pleural effusion, bilateral: Status: Acute Code(s): J90 - Pleural effusion, not elsewhere classified (5) Dementia: Status: Acute Code(s): F03.90 - Unspecified dementia, unspecified severity, without behavioral disturbance, psychotic disturbance, mood disturbance, and anxiety Qualifiers: Dementia severity: moderate Dementia type: unspecified type (6) Lymphoma: Status: Chronic Code(s): C85.90 - Non-Hodgkin lymphoma, unspecified, unspecified site (7) COPD (chronic obstructive pulmonary disease): Status: Chronic Code(s): J44.9 - Chronic obstructive pulmonary disease, unspecified (8) Coronary artery disease: Status: Acute Code(s): I25.10 - Atherosclerotic heart disease of [place] coronary artery without angina pectoris Qualifiers: Associated angina: without angina Coronary Disease-Associated Artery/Lesion type: [place] artery [place] vs. transplanted heart: [place] heart Qualified Code(s): I25.10 - Atherosclerotic heart disease of [place] coronary artery without angina pectoris Meds Home Medications and Allergies Home Medications Medication Instructions Recorded Confirmed Type amlodipine 10 mg tablet 10 mg PO DAILY High Blood Pressure 02/05/23 07/16/23 History azithromycin 250 mg tablet 250 mg PO MOWEFR Bronchopneumonia 02/05/23 07/16/23 History carvedilol 6.25 mg tablet 6.25 mg PO BID High Blood Pressure 02/05/23 07/16/23 History clopidogrel 75 mg tablet 75 mg PO DAILY Antiplatelet 02/05/23 07/16/23 History donepezil 5 mg tablet 5 mg PO HS Memory 02/05/23 07/16/23 History ergocalciferol (vitamin D2) 1,250 1,250 mcg PO WEEKLY Supplement 02/05/23 07/16/23 History mcg (50,000 unit) capsule (Vitamin D2) gabapentin 100 mg capsule 100 mg PO HS Restless Leg(S) 02/05/23 07/16/23 History isosorbide mononitrate 30 mg 30 mg PO DAILY High Blood Pressure 02/05/23 07/16/23 History tablet,extended release 24 hr loratadine 10 mg tablet 10 mg PO DAILY Allergy Symptoms 02/05/23 07/16/23 History montelukast 10 mg tablet 10 mg PO PM Allergy Symptoms 02/05/23 07/16/23 History pravastatin 40 mg tablet 40 mg PO HS High Cholesterol 02/05/23 07/16/23 History sertraline 50 mg tablet 50 mg PO DAILY Mood 02/05/23 07/16/23 History albuterol sulfate 90 mcg/actuation 2 inh inhalation Q4HP PRN 02/12/23 07/16/23 History aerosol inhaler Shortness Of Breath ipratropium 0.5 mg-albuterol 3 mg 3 ml inhalation Q4HP PRN Breathing 02/12/23 07/16/23 History (2.5 mg base)/3 mL nebulization Problems soln amoxicillin 500 mg-potassium 1 tab PO TID 2 days #6 tabs 07/19/23 Rx clavulanate 125 mg tablet fluticasone 250 mcg-salmeterol 50 1 inh inhalation BID 30 days #1 ea 07/19/23 Rx mcg/dose blistr powdr for inhalation (Advair Diskus) furosemide 40 mg tablet 40 mg PO BIDL 30 days #60 tabs 07/19/23 Rx potassium chloride 20 mEq 20 meq PO BID 30 days #60 tabs 07/19/23 Rx tablet,extended release(part/cryst) (Klor-Con M) New Prescriptions to Start Prescriptions: amoxicillin-pot clavulanate Rajendra Manrique fluticasone propion-salmeterol [Advair Diskus] Hilaria,Rajendra furosemide Hilaria,Rajendra potassium chloride [Klor-Con M20] Rajendra Manrique Allergies Allergy/AdvReac Type Severity Reaction Status Date / Time No Known Allergies Allergy Verified 04/30/23 08:18 Discharge Plan Disposition Patient Disposition: Home, Self-Care Condition: Fair Discharge Order Discharge Orders: Discharge Order (Routine); Ordered 07/19/23 Ordered By: Rajendra Manrique Follow up Plan Follow up with: Kelle Wayne [Primary Care Provider] - Enter time for follow up Nagi Toussaint MD [Physician] - Enter time for follow up Prescriptions/Medication Reconciliation: New fluticasone propion-salmeterol [Advair Diskus] 250-50 mcg/dose Blister With Device 1 inh inhalation BID 30 Days Qty: 1 0RF furosemide 40 mg Tablet 40 mg PO BIDL 30 Days Qty: 60 0RF Rx Instructions: twice daily for 1 week, then daily thereafter potassium chloride [Klor-Con M20] 20 mEq Tablet,Er Particles/Crystals 20 meq PO BID 30 Days Qty: 60 0RF amoxicillin-pot clavulanate 500-125 mg tablet 1 tab PO TID 2 Days Qty: 6 0RF Continued ipratropium-albuterol 0.5 mg-3 mg(2.5 mg base)/3 mL Solution For Nebulization 3 ml INHALATION Q4HP PRN (Reason: Breathing Problems) albuterol sulfate 90 mcg/actuation Hfa Aerosol Inhaler 2 inh INHALATION Q4HP PRN (Reason: Shortness Of Breath) carvedilol 6.25 mg tablet 6.25 mg PO BID Patient Comments: TAKE ONE TABLET BY MOUTH EVERY TWELVE HOURS donepezil 5 mg tablet 5 mg PO HS Patient Comments: TAKE ONE TABLET BY MOUTH AT BEDTIME azithromycin 250 mg tablet 250 mg PO Patient Comments: take 1 tablet (250 mg) by mouth once daily on Thursday, Thursday and Thursday pravastatin 40 mg tablet 40 mg PO HS Patient Comments: TAKE ONE TABLET BY MOUTH AT BEDTIME isosorbide mononitrate 30 mg tablet extended release 24 hr 30 mg PO DAILY Patient Comments: TAKE ONE TABLET BY MOUTH EVERY DAY clopidogrel 75 mg tablet 75 mg PO DAILY Patient Comments: TAKE ONE TABLET BY MOUTH EVERY DAY amlodipine 10 mg tablet 10 mg PO DAILY Patient Comments: TAKE ONE TABLET BY MOUTH EVERY DAY montelukast 10 mg tablet 10 mg PO PM Patient Comments: TAKE ONE TABLET BY MOUTH EVERY DAY AT BEDTIME gabapentin 100 mg capsule 100 mg PO HS Patient Comments: take 1 capsule by mouth at bedtime ergocalciferol (vitamin D2) [Vitamin D2] 1,250 mcg (50,000 unit) capsule 1,250 mcg PO WEEKLY Patient Comments: TAKE ONE CAPSULE BY MOUTH ONCE WEEKLY sertraline 50 mg tablet 50 mg PO DAILY Patient Comments: TAKE ONE TABLET BY MOUTH EVERY DAY loratadine 10 mg tablet 10 mg PO DAILY Patient Comments: TAKE ONE TABLET BY MOUTH EVERY DAY Discontinued furosemide 20 mg tablet 40 mg PO DAILY 30 Days Qty: 60 0RF Patient Comments: TAKE ONE TABLET ONE TIME EACH DAY IN THE morning potassium chloride 20 mEq tablet,ER particles/crystals 20 meq PO DAILY Patient Comments: TAKE ONE TABLET BY MOUTH EVERY DAY Problem Reconciliation Problems Reviewed?: Yes Patient Discharge Instructions ACTIVITY: Continue current activity DIET: continue same diet Patient Instructions: DI for Pneumonia -- Adult, DI for Sepsis -- Adult, DI for Respiratory Failure Providers Primary Care Provider: Kelle Wayne Admit Provider: Rajendra Manrique Attending Provider: Rajendra Manrique
[2023-07-19 07:45] LABS: Basophils # 0.9 K/mm3 (0-0.2); Basophils % 2.9 % (0.1-2.0); Eosinophils # 0.1 K/mm3 (0.0-0.4); Eosinophils % 0.5 % (0.1-12.0); Hematocrit 39.3 % (37.0-47.0); Hemoglobin 12.2 g/dL (12.2-16.2); Lymphocytes # 24.2 K/mm3 (0.7-4.5); Lymphocytes % 80.4 % (10-50); Mean Corpuscular HGB Conc 31.1 g/dL (31.8-35.4); Mean Corpuscular Hemoglobin 25.9 pg (27.0-31.2); Mean Corpuscular Volume 83.2 fl (81-99); Mean Platelet Volume 8.7 fl (7.4-10.4); Monocytes # 0.8 K/mm3 (0.1-1.0); Monocytes % 2.7 % (1.7-9.3); Neutrophils # 4.1 K/mm3 (1.8-7.8); Platelet Count 188 K/mm3 (142-424); Red Blood Count 4.73 M/mm3 (4.20-5.40); White Blood Count 30.1 K/mm3 (4.8-10.8)
[2023-07-19 07:51] LABS: Neutrophils % 13.5 % (37.0-80.0)
[2023-07-19 07:52] LABS: MANUAL DIFFERENTIAL MANUAL DIFFERENTIAL (MANUAL DIFF)
[2023-07-19 07:55] LABS: Chloride 97 mmol/L (98-107); Potassium 3.1 mmoL/L (3.5-5.1); Sodium 138 mmol/L (136-145)
[2023-07-19 07:57] LABS: Alanine Aminotransferase 17 U/L (12-78); Aspartate Amino Transferase 26 U/L (14-36); Blood Urea Nitrogen 21 mg/dl (7-17); Creatinine Clearance Estimated 37 mL/min (50-200); Estimated Glomerular Filt Rate 47 ml/min (>60); GFR (African American) 57 ML/MIN (>60); Magnesium 2.3 mg/dl (1.6-2.3)
[2023-07-19 07:58] LABS: Albumin Level 3.7 g/dl (3.5-5.0); Albumin/Globulin Ratio 1.6 (1.1-1.8); Alkaline Phosphatase 81 U/L (38-126); Bilirubin,Total 0.3 mg/dl (0.2-1.3); Calcium 9.4 mg/dl (8.4-10.2); Globulin 2.3 g/dL (1.3-3.2); Glucose 111 mg/dl (74-100)
[2023-07-19 08:04] LABS: Anion Gap 6.1 mEq/L (5-15); Carbon Dioxide 38 mmol/L (22.0-30.0)
[2023-07-19 08:26] LABS: Hypochromasia 1+; Lymphocytes % 92 % (10-50); Neutrophils % 8 % (42-76); Platelet Estimate Normal; Total Cells Counted 100
[2023-07-19] MEDS: AMLODIPINE 5MG TABLET 5 MG PO (08:43)
[2023-07-19] MEDS: ISOSORBIDE MONO 30MG TAB.ER.24H 30 MG PO (08:44)
[2023-07-19] MEDS: HEPARIN SODIUM 5,000 UNIT/ML VIAL 5000 UNIT SQ (08:44)
[2023-07-19] MEDS: FUROSEMIDE 40 MG TABLET PO (08:44)
[2023-07-19] MEDS: VANCOMYCIN/WATER FOR INJ (PEG) 1.25 GM/250 ML PIGGYBACK IV (08:44)
[2023-07-19] MEDS: POTASSIUM CHLORIDE 20MEQ TAB 20 MEQ PO (08:44)
--- NOTE | 2023-07-19 09:28 | P.PN_ITS ---
Subjective *Date: 07/19/23 *Time: 09:28 Medical Exam Vital signs and Labs for Last 24 Hours: Vital Signs Temp Pulse Pulse Resp BP Pulse Ox O2 Del Method 07/19/23 08:00 97.7 F 75 18 119/58 L 95 Nasal Cannula 07/19/23 08:00 70 07/19/23 08:00 92 L Nasal Cannula 07/19/23 08:09 87 L Room Air 07/19/23 04:00 98.5 F 64 20 159/67 H 96 Nasal Cannula 07/19/23 06:16 69 07/19/23 06:16 60 07/19/23 06:16 95 Nasal Cannula 07/19/23 04:00 70 07/19/23 03:00 Nasal Cannula 07/19/23 00:00 98.6 F 71 22 151/71 H 95 Nasal Cannula 07/18/23 20:00 70 07/19/23 00:00 70 07/19/23 02:25 74 07/19/23 02:24 72 07/19/23 05:00 Nasal Cannula 07/19/23 01:00 Nasal Cannula 07/19/23 00:00 95 Nasal Cannula 07/18/23 23:00 Nasal Cannula 07/18/23 20:00 97.6 F 72 18 135/68 97 Nasal Cannula 07/18/23 22:21 77 07/18/23 22:20 74 07/18/23 21:00 Nasal Cannula 07/18/23 18:27 Nasal Cannula 07/18/23 16:00 80 07/18/23 18:40 Nasal Cannula 07/18/23 18:40 71 07/18/23 18:39 73 07/18/23 17:00 Nasal Cannula 07/18/23 16:00 98 F 07/18/23 16:00 72 25 H 104/55 L 94 L Nasal Cannula 07/18/23 15:49 99 Nasal Cannula 07/18/23 12:00 64 20 106/56 L 96 Nasal Cannula 07/18/23 14:00 87 22 85/46 L 97 Nasal Cannula 07/18/23 15:00 Nasal Cannula 07/18/23 13:00 Nasal Cannula 07/18/23 14:30 95 Nasal Cannula 07/18/23 12:00 60 07/18/23 13:29 72 07/18/23 13:29 70 07/18/23 13:29 94 L Nasal Cannula 07/18/23 12:00 97.9 F 07/18/23 11:00 Nasal Cannula 07/18/23 11:15 95 Nasal Cannula 07/18/23 11:01 71 07/18/23 11:01 70 07/18/23 11:01 98 Nasal Cannula 07/18/23 10:00 63 16 138/61 97 Nasal Cannula O2 Flow Rate 07/19/23 08:00 1 07/19/23 08:00 07/19/23 08:00 1 07/19/23 08:09 07/19/23 04:00 1 07/19/23 06:16 07/19/23 06:16 07/19/23 06:16 3 07/19/23 04:00 07/19/23 03:00 1 07/19/23 00:00 1 07/18/23 20:00 07/19/23 00:00 07/19/23 02:25 07/19/23 02:24 07/19/23 05:00 1 07/19/23 01:00 1 07/19/23 00:00 1 07/18/23 23:00 1 07/18/23 20:00 1 07/18/23 22:21 07/18/23 22:20 07/18/23 21:00 1 07/18/23 18:27 1 07/18/23 16:00 07/18/23 18:40 1 07/18/23 18:40 07/18/23 18:39 07/18/23 17:00 1 07/18/23 16:00 07/18/23 16:00 1 07/18/23 15:49 1 07/18/23 12:00 1 07/18/23 14:00 1 07/18/23 15:00 1 07/18/23 13:00 1 07/18/23 14:30 1 07/18/23 12:00 07/18/23 13:29 07/18/23 13:29 07/18/23 13:29 1 07/18/23 12:00 07/18/23 11:00 1 07/18/23 11:15 1 07/18/23 11:01 07/18/23 11:01 07/18/23 11:01 1 07/18/23 10:00 2 Intake and Output 07/18/23 07/19/23 07/19/23 23:59 07:59 15:59 Intake Total 360 / 1350 360 / 720 360 / 720 Output Total 0 / 600 0 / 0 0 / 0 Balance 360 / 750 360 / 720 360 / 720 Intake: Intake, Oral Amount 360 / 1350 360 / 720 360 / 720 Output: Output, Urine Amount 0 / 600 0 / 0 0 / 0 Other: Number of Voids 0 0 Number of Unmeasured Voids 1 1 Number of Bowel Movements 1 1 Weight 67.188 kg Patient Weight 07/19/23 23:59 Weight 67.188 kg Laboratory Results - last 24 hr 07/18/23 07:29: Total Counted 100, Neutrophils % (Manual) 15 L, Lymphocytes % (Manual) 83 H, Monocytes % (Manual) 2, Platelet Estimate Normal, Hypochromasia 1+ 07/18/23 13:35: Vancomycin Peak 26.6 07/19/23 06:19: WBC 30.1 H*, RBC 4.73, Hgb 12.2, Hct 39.3, MCV 83.2, MCH 25.9 L, MCHC 31.1 L, RDW 16.0, Plt Count 188, MPV 8.7, Neut % (Auto) 13.5 L, Lymph % (Auto) 80.4 H, [place] % (Auto) 2.7, Eos % (Auto) 0.5, Baso % (Auto) 2.9 H, Neut # (Auto) 4.1, Lymph # (Auto) 24.2 H, [place] # (Auto) 0.8, Eos # (Auto) 0.1, Baso # (Auto) 0.9 H, Total Counted 100, Neutrophils % (Manual) 8 L, Lymphocytes % (Manual) 92 H, Platelet Estimate Normal, Hypochromasia 1+, Sodium 138, Potassium 3.1 L, Chloride 97 L, Carbon Dioxide 38 H, Anion Gap 6.1, BUN 21 H, Creatinine 1.10 H D, Estimated Creat Clear 37, Estimated GFR 47 L, Est GFR ( Amer) 57 L, Glucose 111 H, Calcium 9.4, Magnesium 2.3, Total Bilirubin 0.3, AST 26, ALT 17, Alkaline Phosphatase 81, Total Protein 6.0 L, Albumin 3.7, Globulin 2.3, Albumin/Globulin Ratio 1.6 I & O for Labs for Last 24 Hours: Intake & Output 07/16/23 07/17/23 07/18/23 07/19/23 23:59 23:59 23:59 23:59 Intake Total 50 / 50 460 / 460 990 / 1350 720 / 720 Output Total 1700 / 2100 1600 / 2200 600 / 600 0 / 0 Balance -1650 / -2050 -1140 / -1740 390 / 750 720 / 720 Weight 72.603 kg 71.849 kg 69.201 kg 67.188 kg Microbiology Reports for the Last 24 Hours: Microbiology 07/16/23 09:30 Blood Blood Culture - Preliminary 07/16/23 10:09 Blood Blood Culture - Preliminary The patient's infection will respond to the chosen ABx?: Yes Is the patient receiving the right drug, dose, and route?: Yes Could a more targeted ABx be ordered?: No (BLOOD CX SHOWS NO GROWTH AT 24 HOURS)
--- NOTE | 2023-07-19 09:39 | XR_ITS ---
PROCEDURE INFORMATION: Exam: XR Chest Exam date and time: 07/19/2023 10:23 AM Age: 87 years old Clinical indication: Dyspnea TECHNIQUE: Imaging protocol: Radiologic exam of the chest. Views: 1 view. COMPARISON: CT ANGIO CHEST PE PROTOCOL 07/16/2023 9:42 AM FINDINGS: Lungs: Improved bilateral airspace opacities. Pleural spaces: Small bilateral pleural effusions. No pneumothorax. Heart/Mediastinum: Unremarkable. No cardiomegaly. Bones/joints: Unremarkable. IMPRESSION: Small bilateral pleural effusions with improved bilateral airspace opacities.
--- NOTE | 2023-07-19 10:54 | PC.NURSE ---
Family notified of Pt's DC. Stated they will be here around 0208
--- NOTE | 2023-07-20 14:34 | CARE MANAGER ---
Called and spoke with patient's family regarding recent discharge. He stated that patient is doing well, no concerns voiced at time of call. Plans to call and schedule f/u with pulmonology.
== END 2023-07-19 11:50 | disposition home or self-care (01) | DRG 871 ==
LOC: ER 11:53 → 2ND 12:54
PROVIDERS: Admitting Provider Internal Medicine Adolescent Medicine; Emergency Provider Emergency Medicine; PCP Nurse Practitioner Family; Visit Provider Internal Medicine Adolescent Medicine
DX: A41.9 Sepsis, unspecified organism (principal); I50.33 Acute on chronic diastolic (congestive) heart failure; J18.9 Pneumonia, unspecified organism; J96.21 Acute and chronic respiratory failure with hypoxia; J44.0 Chronic obstructive pulmonary disease with (acute) lower respiratory infection; C85.90 Non-Hodgkin lymphoma, unspecified, unspecified site; Z99.81 Dependence on supplemental oxygen; I25.10 Atherosclerotic heart disease of native coronary artery without angina pectoris; Z85.828 Personal history of other malignant neoplasm of skin; I11.0 Hypertensive heart disease with heart failure; Z87.891 Personal history of nicotine dependence; F03.90 Unspecified dementia, unspecified severity, without behavioral disturbance, psychotic disturbance, mood disturbance, and anxiety
CPT/HCPCS: 36415; 71045; 71275; 80053; 80202; 82803; 83605; 83735; 83880; 84145; 84436; 84443; 84484; 85007; 85025; 85378; 85610; 85730; 87040; 87636; 93005; 93306; 93971; 94640; 94761; 97163; 99285; J2543; J3370; Q9967

== ENCOUNTER 2023-08-24 22:22 | Emergency (ER) | payer MEDICARE, OTHER, SELFPAY ==
[2023-08-24 22:22] VITALS: BP 114/60; PULSE 76; RESP 26; TEMP 36.7; O2SAT 91; BMI 26.2
--- NOTE | 2023-08-24 22:28 | XR_ITS ---
PROCEDURE INFORMATION: Exam: XR Chest Exam date and time: 08/24/2023 10:31 PM Age: 87 years old Clinical indication: Shortness of breath; Additional info: SOA, r>l vinny TECHNIQUE: Imaging protocol: Radiologic exam of the chest. Views: 1 view. COMPARISON: CR XR CHEST PORTABLE 07/19/2023 10:23 AM FINDINGS: Lungs: Multifocal hazy opacities with diffuse interstitial edema. Pleural spaces: No large pleural effusion. Heart/Mediastinum: Stable cardiac and mediastinal contours. Vasculature: There are calcifications of the aortic arch. Bones/joints: No evidence of acute osseous abnormalities within the visualized portions of the thoracic spine and ribs. Osseous structures appear appropriate for patient age. IMPRESSION: Multifocal hazy opacities with diffuse interstitial edema. No large pleural effusion.
--- NOTE | 2023-08-24 22:31 | ECG_ITS ---
APPROVED REPORT Exam: Resting ECG HR:70 bpm ECG Measurements Heart Rate 70 AXES MS 184 P 80 QRSd 82 QRS 56 QT 403 T 46 QTc 423 Conclusion SINUS RHYTHM WITH OCCASIONAL VENTRICULAR PREMATURE COMPLEXES WITH OCCASIONAL SUPRAVENTRICULAR PREMATURE COMPLEXES Electronically signed by : MARCIN BAJWA, 08/25/2023 23:09:09
--- NOTE | 2023-08-24 22:32 | [facility].EDCP ---
Discharge Plan Disposition Patient Disposition: Home, Self-Care Prescriptions Prescriptions: New doxycycline hyclate 100 mg capsule 100 mg PO BID 7 Days Qty: 14 0RF prednisone 50 mg tablet 50 mg PO DAILY 5 Days Qty: 5 0RF No Action ipratropium-albuterol 0.5 mg-3 mg(2.5 mg base)/3 mL Solution For Nebulization 3 ml INHALATION Q4HP PRN (Reason: Breathing Problems) albuterol sulfate 90 mcg/actuation Hfa Aerosol Inhaler 2 inh INHALATION Q4HP PRN (Reason: Shortness Of Breath) fluticasone propion-salmeterol [Advair Diskus] 250-50 mcg/dose Blister With Device 1 inh inhalation BID 30 Days Qty: 1 0RF furosemide 40 mg Tablet 40 mg PO BIDL 30 Days Qty: 60 0RF Rx Instructions: twice daily for 1 week, then daily thereafter potassium chloride [Klor-Con M20] 20 mEq Tablet,Er Particles/Crystals 20 meq PO BID 30 Days Qty: 60 0RF amoxicillin-pot clavulanate 500-125 mg tablet 1 tab PO TID 2 Days Qty: 6 0RF carvedilol 6.25 mg tablet 6.25 mg PO BID Patient Comments: TAKE ONE TABLET BY MOUTH EVERY TWELVE HOURS donepezil 5 mg tablet 5 mg PO HS Patient Comments: TAKE ONE TABLET BY MOUTH AT BEDTIME azithromycin 250 mg tablet 250 mg PO Patient Comments: take 1 tablet (250 mg) by mouth once daily on Thursday, Thursday and Thursday pravastatin 40 mg tablet 40 mg PO HS Patient Comments: TAKE ONE TABLET BY MOUTH AT BEDTIME isosorbide mononitrate 30 mg tablet extended release 24 hr 30 mg PO DAILY Patient Comments: TAKE ONE TABLET BY MOUTH EVERY DAY clopidogrel 75 mg tablet 75 mg PO DAILY Patient Comments: TAKE ONE TABLET BY MOUTH EVERY DAY amlodipine 10 mg tablet 10 mg PO DAILY Patient Comments: TAKE ONE TABLET BY MOUTH EVERY DAY montelukast 10 mg tablet 10 mg PO PM Patient Comments: TAKE ONE TABLET BY MOUTH EVERY DAY AT BEDTIME gabapentin 100 mg capsule 100 mg PO HS Patient Comments: take 1 capsule by mouth at bedtime ergocalciferol (vitamin D2) [Vitamin D2] 1,250 mcg (50,000 unit) capsule 1,250 mcg PO WEEKLY Patient Comments: TAKE ONE CAPSULE BY MOUTH ONCE WEEKLY sertraline 50 mg tablet 50 mg PO DAILY Patient Comments: TAKE ONE TABLET BY MOUTH EVERY DAY loratadine 10 mg tablet 10 mg PO DAILY Patient Comments: TAKE ONE TABLET BY MOUTH EVERY DAY Referrals Follow up/Referrals: Provider,Referral, MD [Primary Care Provider] - See instructions Activity Restrictions/Add. Instructions Additional Instructions/Restrictions: Please take antibiotics and steroids as prescribed for treatment of COPD exacerbation. Clinical Impressions Clinical Impression: COPD exacerbation, Cough, Shortness of breath, Acute and chronic respiratory failure Discharge ED Provider: Linnette Kaur HPI <Linnette Kaur DO - Last Filed: 08/24/23 22:55> General Chief Complaint: Shortness of Breath/Dyspnea Stated Complaint: Dyspnea Time Seen by Provider: 08/24/23 22:26 History of Present Illness HPI narrative: This patient is an 87-year-old female with history of lymphoma, chronic respiratory failure on 4 L nasal cannula, COPD, CHF, dementia, and pleural effusions who is currently on hospice with [facility] presenting with concern for worsening shortness of breath. Patient states that she feels like she cannot get her breath. EMS arrived and noted the patient was hypoxic on 4 L nasal cannula, so they bumped up to 5 L and gave her a DuoNeb. After the DuoNeb, she had some improvement but is still very tachypneic and feeling short of air. EMS reports that the patient has reportedly not been on hospice that long and the family is on the way. On medical review, she has had multiple previous admissions for pneumonia, respiratory failure, CHF exacerbation, etc. all seemingly pertaining to respiratory failure. Patient states she is having left rib pain with coughing and taking a deep breath, but denies any other concerns or complaints. Related Data Home Medications Medication Instructions Recorded Confirmed amlodipine 10 mg tablet 10 mg PO DAILY High Blood Pressure 02/05/23 07/16/23 azithromycin 250 mg tablet 250 mg PO MOWEFR Bronchopneumonia 02/05/23 07/16/23 carvedilol 6.25 mg tablet 6.25 mg PO BID High Blood Pressure 02/05/23 07/16/23 clopidogrel 75 mg tablet 75 mg PO DAILY Antiplatelet 02/05/23 07/16/23 donepezil 5 mg tablet 5 mg PO HS Memory 02/05/23 07/16/23 ergocalciferol (vitamin D2) 1,250 1,250 mcg PO WEEKLY Supplement 02/05/23 07/16/23 mcg (50,000 unit) capsule (Vitamin D2) gabapentin 100 mg capsule 100 mg PO HS Restless Leg(S) 02/05/23 07/16/23 isosorbide mononitrate 30 mg 30 mg PO DAILY High Blood Pressure 02/05/23 07/16/23 tablet,extended release 24 hr loratadine 10 mg tablet 10 mg PO DAILY Allergy Symptoms 02/05/23 07/16/23 montelukast 10 mg tablet 10 mg PO PM Allergy Symptoms 02/05/23 07/16/23 pravastatin 40 mg tablet 40 mg PO HS High Cholesterol 02/05/23 07/16/23 sertraline 50 mg tablet 50 mg PO DAILY Mood 02/05/23 07/16/23 albuterol sulfate 90 mcg/actuation 2 inh inhalation Q4HP PRN 02/12/23 07/16/23 aerosol inhaler Shortness Of Breath ipratropium 0.5 mg-albuterol 3 mg 3 ml inhalation Q4HP PRN Breathing 02/12/23 07/16/23 (2.5 mg base)/3 mL nebulization Problems soln Previous Rx's Medication Instructions Recorded amoxicillin 500 mg-potassium 1 tab PO TID 2 days #6 tabs 07/19/23 clavulanate 125 mg tablet fluticasone 250 mcg-salmeterol 50 1 inh inhalation BID 30 days #1 ea 07/19/23 mcg/dose blistr powdr for inhalation (Advair Diskus) furosemide 40 mg tablet 40 mg PO BIDL 30 days #60 tabs 07/19/23 potassium chloride 20 mEq 20 meq PO BID 30 days #60 tabs 07/19/23 tablet,extended release(part/cryst) (Klor-Con M) doxycycline hyclate 100 mg capsule 100 mg PO BID 7 days #14 caps 08/25/23 prednisone 50 mg tablet 50 mg PO DAILY 5 days #5 tabs 08/25/23 Allergies Allergy/AdvReac Type Severity Reaction Status Date / Time No Known Allergies Allergy Verified 04/30/23 08:18 [facility] <Linnette Kaur, DO - Last Filed: 08/24/23 22:55> [facility] Disclaimer: The information contained in this section may have been updated after the patient was seen, as this information can be updated by other users. Medical History Pleural effusion, bilateral Coronary artery disease Splenomegaly Diverticulosis Varicose veins of both lower extremities Chronic venous stasis History of skin cancer Hearing deficit HTN (hypertension) Congestive heart failure Onychomycosis Onychodystrophy Senile dementia COPD (chronic obstructive pulmonary disease) Surgical History History of breast lump/mass excision History of hemorrhoidectomy Family History Mother Heart attack Father Lung cancer Other Stroke Social History Smoking Status: Never smoker alcohol intake: never current occupational status: retired and disabled Travel in the last 8 weeks: None household members: family housing: house <Linnette Kaur DO - Last Filed: 08/24/23 22:55> ROS Obtained: Yes All systems reviewed & no additional complaints except as documented Physical Exam <Linnette Kaur DO - Last Filed: 08/24/23 22:55> General General appearance: alert and anxious Head Head exam: atraumatic and normocephalic Eye Eye exam: Present normal appearance, PERRL and EOMI ENT ENT exam: Present normal exam, normal oropharynx, mucous membranes moist and normal external ear exam Neck Neck exam: Present normal inspection, full ROM and trachea midline; Absent tenderness Chest Chest inspection: Present normal inspection and symmetric chest wall rise; Absent tenderness Respiratory Respiratory exam: Present wheezes, accessory muscle use, prolonged expiratory phase and other (Wheezing and rhonchi, right greater than left. Diminished breath sounds in the bases. Tachypnea with accessory muscle use); Absent respiratory distress or stridor Cardiovascular Cardiovascular exam: Present regular rate and normal rhythm Abdominal Exam Abdominal exam: Present soft; Absent distention, tenderness or guarding Extremities Exam Extremities exam: Present normal inspection, full ROM and normal capillary refill; Absent tenderness or edema Back Exam Back exam: Present normal inspection and full ROM; Absent tenderness Neurological Exam Neurological exam: Present alert, CN II-XII intact and normal gait; Absent motor sensory deficit Psychiatric Psychiatric exam: Present anxious Skin Skin exam: Present warm and dry HEART Score <Linnette Kaur DO - Last Filed: 08/24/23 22:55> HEART Score HEART Score assessment performed?: No Critical Care <Linnette Kaur DO - Last Filed: 08/24/23 22:55> Critical Care Time Critical Care Time: No Medical Decision Making <Linnette Kaur DO - Last Filed: 08/24/23 22:55> Medical Records Medical records reviewed: Yes I reviewed the patient's medical records. Edgardo Inquiry Pt receiving controlled substance: No Vital Signs Vital Signs: 08/24/23 22:22 08/24/23 22:39 08/25/23 00:33 Temperature 98.1 F 98.7 F 98.4 F Temperature Source Oral Oral Oral Pulse Rate 71 62 Pulse Rate [Left] 76 Respiratory Rate 26 H 16 16 Blood Pressure 100/48 L 110/62 Blood Pressure [Right Arm] 114/60 Blood Pressure Mean [Right Arm] 78 02 Sat by Pulse Oximetry 91 L 94 L Oxygen Delivery Method Nasal Cannula Nasal Cannula Nasal Cannula Oxygen Flow Rate (LPM) 5 4 4 Lab Data Labs: Lab Results 08/24/23 22:30: SARS-CoV-2 (PCR) Not detected, Influenza A Untype (PCR) Not detected, Influenza Type B (PCR) Not detected 08/24/23 22:34: WBC 22.2 H*, RBC 4.58, Hgb 11.5 L, Hct 36.9 L, MCV 80.6 L, MCH 25.2 L, MCHC 31.2 L, RDW 16.4, Plt Count 257, MPV 8.1, Neut % (Auto) 23.4 L, Lymph % (Auto) 69.9 H, [place] % (Auto) 4.4, Eos % (Auto) 0.2, Baso % (Auto) 2.1 H, Neut # (Auto) 5.2, Lymph # (Auto) 15.5 H, [place] # (Auto) 1.0, Eos # (Auto) 0.0, Baso # (Auto) 0.5 H, Total Counted 100, Neutrophils % (Manual) 25 L, Lymphocytes % (Manual) 66 H, Atypical Lymphs % 3.0, Monocytes % (Manual) 5, Eosinophils % (Manual) 1, Platelet Estimate Normal, Hypochromasia 2+, Anisocytosis 1+, Microcytosis 1+, Sodium 137, Potassium 3.5, Chloride 97 L, Carbon Dioxide 37 H, Anion Gap 6.5, BUN 17, Creatinine 1.00, Estimated Creat Clear 42, Estimated GFR 52 L, Est GFR ( Amer) 63, Glucose 109 H, Calcium 9.8, Total Bilirubin 0.5, AST 32, ALT 17, Alkaline Phosphatase 108, Troponin I < 0.01, NT-Pro-B Natriuret Pep 5380 H, Total Protein 6.3, Albumin 3.6, Globulin 2.7, Albumin/Globulin Ratio 1.3 08/24/23 22:34 08/24/23 22:34 Response Orders (Tests/Meds): ED MEDICATIONS Discontinued Medications Generic Name Dose Route Start Last Admin Trade Name Freq PRN Reason Stop Dose Admin Albuterol/Ipratropium 9 ml 08/24/23 22:28 08/24/23 23:40 Ipratropium/Albuterol 3 Ml Neb IH 08/24/23 22:29 9 ml ONCE ONE Administration Doxycycline Hyclate 100 mg/ 250 mls @ 166.667 mls/hr 08/24/23 22:45 08/24/23 23:16 Sodium Chloride IV 08/24/23 22:46 166.667 mls/hr ONCE ONE Administration Ketorolac Tromethamine 15 mg 08/24/23 22:48 08/24/23 23:17 Ketorolac 30mg/Ml Vial IV 08/24/23 22:49 15 mg ONCE ONE Administration Methylprednisolone Sodium Succinate 125 mg 08/24/23 22:45 08/24/23 23:17 Methylprednisolone Sod Succ 125mg Vial IV 08/24/23 22:46 125 mg ONCE ONE Administration Morphine Sulfate 4 mg 08/24/23 22:48 08/24/23 23:17 Morphine 4mg/Ml Syringe IV 08/24/23 22:49 4 mg ONCE ONE Administration Ondansetron HCl 4 mg 08/24/23 22:45 08/24/23 23:17 Ondansetron 4mg/2ml Vial IV 08/24/23 22:46 4 mg ONCE ONE Administration ORDERS Category Date Time Status XR chest portable Stat Exams 08/24/23 22:28 Completed Complete Blood Count Auto Diff Stat Lab 08/24/23 22:34 Completed Comprehensive Metabolic Panel Stat Lab 08/24/23 22:34 Completed NT Pro Brain Natriuretic Pep. Stat Lab 08/24/23 22:34 Completed Rapid PCR Covid and Flu A/B Stat Lab 08/24/23 22:30 Completed Troponin I Q3H Lab 08/25/23 02:00 Ordered Troponin I Q3H Lab 08/25/23 05:00 Ordered Troponin I Stat Lab 08/24/23 22:34 Completed ECG Data Tracing #1: Attestation: I reviewed this ECG and interpreted as documented below: ECG Narrative: Normal sinus rhythm with a ventricular rate of 70 bpm. Occasional PVCs. Occasional PACs. Nonspecific ST/T wave changes with some motion artifact noted. No acute STEMI. ECG initial impression date: 08/24/23 ECG initial impression time: 22:32 MDM Narrative Medical Decision Narrative: In summary, this patient is a 87-year-old female presenting to the Emergency Department for evaluation of shortness of breath. She is currently on hospice for lymphoma and chronic respiratory failure. Differential diagnoses considered include but are not limited to pneumonia, CHF exacerbation, COPD exacerbation, acute on chronic respiratory failure, ACS, pleural effusions. Ruling out the most morbid conditions drove assessment. On exam, the patient is tachypneic with increased work of breathing. She has bilateral coarse rhonchi and wheezing, right greater than left. workup included CBC, CMP, troponin, BNP, viral swab, chest x-ray, and EKG. I had an interactive discussion with the patient's hospice nurse, Apryl Ahuja, advised that she was actually on the way out to see the patient because the family had noted that she seemed more uncomfortable. She expresses concern that the family is not using PRNs as much as they should be to keep the patient comfortable. I advised my goal is to get her more comfortable with breathing treatments, medication to treat her pain of her chest wall from coughing, and potentially steroids. She advised at this time would like a good plan. Given the patient's increased sputum production, will also treat symptomatically with antibiotics, including IV doxycycline. Patient care signed out to the oncoming provider, Dr. Kulkarni, pending workup and ultimate disposition. <Taran Kulkarni MD - Last Filed: 08/25/23 00:44> Vital Signs Vital Signs: 08/24/23 22:22 08/24/23 22:39 08/25/23 00:33 Temperature 98.1 F 98.7 F 98.4 F Temperature Source Oral Oral Oral Pulse Rate 71 62 Pulse Rate [Left] 76 Respiratory Rate 26 H 16 16 Blood Pressure 100/48 L 110/62 Blood Pressure [Right Arm] 114/60 Blood Pressure Mean [Right Arm] 78 02 Sat by Pulse Oximetry 91 L 94 L Oxygen Delivery Method Nasal Cannula Nasal Cannula Nasal Cannula Oxygen Flow Rate (LPM) 5 4 4 Lab Data Labs: Lab Results 08/24/23 22:30: SARS-CoV-2 (PCR) Not detected, Influenza A Untype (PCR) Not detected, Influenza Type B (PCR) Not detected 08/24/23 22:34: WBC 22.2 H*, RBC 4.58, Hgb 11.5 L, Hct 36.9 L, MCV 80.6 L, MCH 25.2 L, MCHC 31.2 L, RDW 16.4, Plt Count 257, MPV 8.1, Neut % (Auto) 23.4 L, Lymph % (Auto) 69.9 H, [place] % (Auto) 4.4, Eos % (Auto) 0.2, Baso % (Auto) 2.1 H, Neut # (Auto) 5.2, Lymph # (Auto) 15.5 H, [place] # (Auto) 1.0, Eos # (Auto) 0.0, Baso # (Auto) 0.5 H, Total Counted 100, Neutrophils % (Manual) 25 L, Lymphocytes % (Manual) 66 H, Atypical Lymphs % 3.0, Monocytes % (Manual) 5, Eosinophils % (Manual) 1, Platelet Estimate Normal, Hypochromasia 2+, Anisocytosis 1+, Microcytosis 1+, Sodium 137, Potassium 3.5, Chloride 97 L, Carbon Dioxide 37 H, Anion Gap 6.5, BUN 17, Creatinine 1.00, Estimated Creat Clear 42, Estimated GFR 52 L, Est GFR ( Amer) 63, Glucose 109 H, Calcium 9.8, Total Bilirubin 0.5, AST 32, ALT 17, Alkaline Phosphatase 108, Troponin I < 0.01, NT-Pro-B Natriuret Pep 5380 H, Total Protein 6.3, Albumin 3.6, Globulin 2.7, Albumin/Globulin Ratio 1.3 Response Orders (Tests/Meds): ED MEDICATIONS Discontinued Medications Generic Name Dose Route Start Last Admin Trade Name Freq PRN Reason Stop Dose Admin Albuterol/Ipratropium 9 ml 04/01/24 22:28 08/24/23 23:40 Ipratropium/Albuterol 3 Ml Neb IH 08/24/23 22:29 9 ml ONCE ONE Administration Doxycycline Hyclate 100 mg/ 250 mls @ 166.667 mls/hr 08/24/23 22:45 08/24/23 23:16 Sodium Chloride IV 08/24/23 22:46 166.667 mls/hr ONCE ONE Administration Ketorolac Tromethamine 15 mg 08/24/23 22:48 08/24/23 23:17 Ketorolac 30mg/Ml Vial IV 08/24/23 22:49 15 mg ONCE ONE Administration Methylprednisolone Sodium Succinate 125 mg 08/24/23 22:45 08/24/23 23:17 Methylprednisolone Sod Succ 125mg Vial IV 08/24/23 22:46 125 mg ONCE ONE Administration Morphine Sulfate 4 mg 08/24/23 22:48 08/24/23 23:17 Morphine 4mg/Ml Syringe IV 08/24/23 22:49 4 mg ONCE ONE Administration Ondansetron HCl 4 mg 08/24/23 22:45 08/24/23 23:17 Ondansetron 4mg/2ml Vial IV 08/24/23 22:46 4 mg ONCE ONE Administration ORDERS Category Date Time Status XR chest portable Stat Exams 08/24/23 22:28 Completed Complete Blood Count Auto Diff Stat Lab 08/24/23 22:34 Completed Comprehensive Metabolic Panel Stat Lab 08/24/23 22:34 Completed NT Pro Brain Natriuretic Pep. Stat Lab 08/24/23 22:34 Completed Rapid PCR Covid and Flu A/B Stat Lab 08/24/23 22:30 Completed Troponin I Q3H Lab 08/25/23 02:00 Ordered Troponin I Q3H Lab 08/25/23 05:00 Ordered Troponin I Stat Lab 08/24/23 22:34 Completed MDM Narrative Medical Decision Narrative: In summary, this patient is a 87-year-old female presenting to the Emergency Department for evaluation of shortness of breath. She is currently on hospice for lymphoma and chronic respiratory failure. Differential diagnoses considered include but are not limited to pneumonia, CHF exacerbation, COPD exacerbation, acute on chronic respiratory failure, ACS, pleural effusions. Ruling out the most morbid conditions drove assessment. On exam, the patient is tachypneic with increased work of breathing. She has bilateral coarse rhonchi and wheezing, right greater than left. workup included CBC, CMP, troponin, BNP, viral swab, chest x-ray, and EKG. I had an interactive discussion with the patient's hospice nurse, Apryl Ahuja, advised that she was actually on the way out to see the patient because the family had noted that she seemed more uncomfortable. She expresses concern that the family is not using PRNs as much as they should be to keep the patient comfortable. I advised my goal is to get her more comfortable with breathing treatments, medication to treat her pain of her chest wall from coughing, and potentially steroids. She advised at this time would like a good plan. Given the patient's increased sputum production, will also treat symptomatically with antibiotics, including IV doxycycline. Patient care signed out to the oncoming provider, Dr. Kulkarni, pending workup and ultimate disposition. Shad MALONE: I assumed care of the patient at the time of handoff from the prior provider. On reassessment patient remained stable, reports improved dyspnea, lung sounds improved from prior report. On my interpretation, labs are significant for stably elevated white blood cell count, negative initial troponin, BNP mildly elevated from prior, COVID flu negative. Radiograph independently interpreted by me and shows marked improvement from prior, patient does however have multifocal opacities with some edema. 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 Given this, patient's presentation is most likely consistent with acute COPD exacerbation, radiograph is difficult to interpret but looks improved from prior. Pneumonia remains a possibility. Patient's chest pain is likely result of her cough. We will treat with doxycycline and steroids, prescriptions were sent to her pharmacy. Interactive discussion was had with patient and patient's family regarding her presentation. She was discharged in stable condition.
[2023-08-24 22:39] VITALS: BP 100/48; PULSE 71; RESP 16; TEMP 37.1; O2SAT 94
--- NOTE | 2023-08-24 22:41 | PC.NURSE ---
call placed to on-call for [facility]. requested on-call nurse, Apryl, be paged for discussion with Dr Kaur.
[2023-08-24 22:42] LABS: Basophils # 0.5 K/mm3 (0-0.2); Basophils % 2.1 % (0.1-2.0); Eosinophils % 0.2 % (0.1-12.0); Hematocrit 36.9 % (37.0-47.0); Hemoglobin 11.5 g/dL (12.2-16.2); Lymphocytes # 15.5 K/mm3 (0.7-4.5); Lymphocytes % 69.9 % (10-50); Mean Corpuscular HGB Conc 31.2 g/dL (31.8-35.4); Mean Corpuscular Hemoglobin 25.2 pg (27.0-31.2); Mean Corpuscular Volume 80.6 fl (81-99); Mean Platelet Volume 8.1 fl (7.4-10.4); Monocytes % 4.4 % (1.7-9.3); Neutrophils # 5.2 K/mm3 (1.8-7.8); Neutrophils % 23.4 % (37.0-80.0); Platelet Count 257 K/mm3 (142-424); Red Blood Count 4.58 M/mm3 (4.20-5.40); Red Cell Distribution Width 16.4 % (11.5-17.5); White Blood Count 22.2 K/mm3 (4.8-10.8)
--- NOTE | 2023-08-24 22:44 | PC.NURSE ---
eugene thompson returned call from hospice. dr gaxiola speaking with at this time.
[2023-08-24 22:45] LABS: MANUAL DIFFERENTIAL MANUAL DIFFERENTIAL (MANUAL DIFF)
[2023-08-24 22:48] LABS: Chloride 97 mmol/L (98-107)
[2023-08-24 22:49] LABS: Potassium 3.5 mmoL/L (3.5-5.1); Sodium 137 mmol/L (136-145)
[2023-08-24 22:49] LABS: Coronavirus 19, PCR Not Detected (NotDetected); Influenza A, PCR Not Detected (NotDetected); Influenza B, PCR Not Detected (NotDetected)
[2023-08-24 22:51] LABS: Alanine Aminotransferase 17 U/L (12-78); Albumin Level 3.6 g/dl (3.5-5.0); Albumin/Globulin Ratio 1.3 (1.1-1.8); Alkaline Phosphatase 108 U/L (38-126); Anion Gap 6.5 mEq/L (5-15); Aspartate Amino Transferase 32 U/L (14-36); Bilirubin,Total 0.5 mg/dl (0.2-1.3); Blood Urea Nitrogen 17 mg/dl (7-17); Carbon Dioxide 37 mmol/L (22.0-30.0); Creatinine Clearance Estimated 42 mL/min (50-200); Estimated Glomerular Filt Rate 52 ml/min (>60); GFR (African American) 63 ML/MIN (>60); Globulin 2.7 g/dL (1.3-3.2); Total Protein,Serum 6.3 g/dl (6.3-8.2)
[2023-08-24 22:52] LABS: Calcium 9.8 mg/dl (8.4-10.2); Glucose 109 mg/dl (74-100)
[2023-08-24 22:58] LABS: Anisocytosis 1+; Eosinophils % 1 % (0-3); Lymphocytes % 66 % (10-50); Microcytosis 1+; Monocytes % 5 % (2-9); Neutrophils % 25 % (42-76); Platelet Estimate Normal; Total Cells Counted 100
[2023-08-24 22:59] LABS: Hypochromasia 2+
[2023-08-24 23:00] LABS: NT Pro Brain Natriuretic Pep. 5380 pg/mL (0-450)
[2023-08-24 23:15] LABS: Troponin I < 0.01 ng/ml (0.00-0.034)
[2023-08-24] MEDS: DOXYCYCLINE HYCLATE 100 MG in 0.9 % SODIUM CHLORIDE 250 ML 166.667000000000002 MG IV (23:16)
[2023-08-24] MEDS: ONDANSETRON 4MG/2ML VIAL 4 MG IV (23:17)
[2023-08-24] MEDS: METHYLPREDNISOLONE SOD SUCC 125MG VIAL 125 MG IV (23:17)
[2023-08-24] MEDS: MORPHINE 4MG/ML SYRINGE 4 MG IV (23:17)
[2023-08-24] MEDS: KETOROLAC 30MG/ML VIAL 15 MG IV (23:17)
[2023-08-24] MEDS: IPRATROPIUM/ALBUTEROL 3 ML NEB 9 ML IH (23:40)
[2023-08-25 00:33] VITALS: BP 110/62; PULSE 62; RESP 16; TEMP 36.9; O2SAT 94
== END 2023-08-25 00:54 | disposition home or self-care (01) ==
PROVIDERS: Emergency Provider Emergency Medicine
DX: J96.21 Acute and chronic respiratory failure with hypoxia (principal); J44.1 Chronic obstructive pulmonary disease with (acute) exacerbation; R05.9 Cough, unspecified; R07.1 Chest pain on breathing; I49.3 Ventricular premature depolarization; I49.1 Atrial premature depolarization; C85.90 Non-Hodgkin lymphoma, unspecified, unspecified site; J90 Pleural effusion, not elsewhere classified; I11.0 Hypertensive heart disease with heart failure; I50.33 Acute on chronic diastolic (congestive) heart failure; I25.10 Atherosclerotic heart disease of native coronary artery without angina pectoris
CPT/HCPCS: 71045; 80053; 83880; 84484; 85007; 85025; 87636; 93005; 96374; 96375; 99285; J2405